=== PATIENT | male | born 1965 | race African-American/Black ===

== ENCOUNTER 2021-10-03 14:32 | Inpatient (IN) | payer OTHER ==
[~2021-10-03 14:32] MED LIST: Heparin 1,000 UNITS/ML VIAL ONE
[2021-10-03 17:58] VITALS: BMI 30.7
[2021-10-03] MEDS ORDERED: Dextrose 5% in Water 1,000 ML IV PRN (18:54)
[2021-10-03] MEDS ORDERED: Dextrose 50% Abboject 50 ML SYRINGE SLOW IVP PRN (18:54)
[2021-10-03] MEDS ORDERED: Ondansetron ODT 4 MG TAB PO PRN (19:32)
[2021-10-03] MEDS ORDERED: Bisacodyl 5 MG TAB PO PRN (19:32)
[2021-10-03] MEDS ORDERED: Senokot S 8.6-50 MG TAB PO PRN (19:32)
[2021-10-03] MEDS ORDERED: Ondansetron PF 4 MG/2 ML Vial IVP PRN (19:32)
[2021-10-03] MEDS ORDERED: Acetaminophen 325 MG TAB PO PRN (19:32)
[2021-10-03] MEDS ORDERED: HYDROcodone/Acetaminophen 5/325 mg Tablet PO PRN (19:32)
[2021-10-03] MEDS ORDERED: HumaLOG 300 UNITS/3 ML VIAL SC PRN (19:34)
[2021-10-03] MEDS: Sodium Chloride 0.9% 1,000 ML IV SCH (21:00)
[2021-10-03] MEDS ORDERED: VANCOMYCIN 2 GRAM/500 ML BAG 2 GM in Premix Bag 1 BAG IVPB SCH (21:00)
[2021-10-03] MEDS: Cefepime 2 GM in Sodium Chloride 0.9% 100 ML IVPB SCH (21:00)
[2021-10-03 21:23] LABS: Lactic Acid 1.4 mmol/L (0.5-2.2)
[2021-10-04 06:14] LABS: ALT (SGPT) 28 U/L (8-55); AST (SGOT) 15 U/L (5-34); Albumin 3.1 g/dL (3.5-5.0); Alkaline Phosphatase 72 U/L (40-110); Anion Gap 14 mmol/L (10-20); BUN (Urea Nitrogen) 15 mg/dL (8.4-25.7); Bilirubin, Total 0.5 mg/dL (0.2-1.2); Calc. Creatinine Clearance 127 mL/min (70-130); Calcium 8.5 mg/dL (7.8-10.44); Carbon Dioxide 18 mmol/L (22-29); Chloride 108 mmol/L (98-107); Estimated GFR 87; Globulin 3.6 g/dL (2.4-3.5); Glucose 132 mg/dL (70-105); Potassium 4.4 mmol/L (3.5-5.1); Protein, Total 6.7 g/dL (6.0-8.3); Sodium 136 mmol/L (136-145)
[2021-10-04 06:21] LABS: Band 5 % (5-11); Hemoglobin 9.6 g/dL (14.0-18.0); Hypochromia SLIGHT = 6-15 cells (100X) (0-5/hpf); Lymphocytes 9 % (21-51); MDiff Complete? YES; Mean Corpuscular HGB CONC 30.5 g/dL (32.0-36.0); Mean Corpuscular Hemoglobin 28.1 pg (27.0-31.0); Mean Platelet Volume 7.9 fL (7.4-10.4); Monocytes 8 % (0-10); Neutrophil 77 % (42-75); Platelet Count 363 thou/uL (130-400); Platelet Morphology Comment Appears Adequate; Polychromasia SLIGHT = 2-3 cells (100X) (0-2/hpf); Reactive Lymphocytes 1 % (0-10); Red Blood Cell (RBC) Count 3.42 mill/uL (4.70-6.10); Target Cells SLIGHT = 2-5 cells (100X) (0-1/hpf); White Blood Cell (WBC) Count 20.1 thou/uL (4.8-10.8)
[2021-10-04] MEDS: Cefepime 2 GM in Sodium Chloride 0.9% 100 ML IVPB SCH ×2 (08:02→19:36)
[2021-10-04] MEDS ORDERED: fentaNYL Citrate/PF 100 MCG/2 ML SYRINGE ONE (09:24)
[2021-10-04] MEDS ORDERED: Bupivacaine/Epinephrine 0.25% 30 ML VIAL ONE (09:24)
[2021-10-04] MEDS ORDERED: Midazolam HCl 2 mg/2 ml Vial ONE (09:24)
[2021-10-04] MEDS: Vancomycin 1.5 GRAM/300 ML BAG 1.5 GM in Premix Bag 1 BAG IVPB SCH ×2 (10:24→21:05)
[2021-10-04] MEDS ORDERED: PROPOFOL 200 MG/20 ML VIAL ONE (10:29)
[2021-10-04] MEDS ORDERED: Ondansetron PF 4 MG/2 ML Vial ONE (10:29)
[2021-10-04] MEDS ORDERED: Ondansetron HCl/PF 4 MG/2 ML Vial IVP PRN (11:17)
[2021-10-04] MEDS ORDERED: Iopamidol 370 76% 50 ML VIAL FS ONE (11:19)
[2021-10-04] MEDS ORDERED: Lidocaine 1% MPF 2 ML VIAL ONE ×2 (11:30→11:50)
[2021-10-04] MEDS ORDERED: Heparin 10,000 UNITS/ 10 ML VIAL ONE (11:41)
[2021-10-04] MEDS: Sodium Chloride 0.9% 1,000 ML IV SCH ×2 (13:48→16:49)
[2021-10-04] MEDS: HumaLOG 300 UNITS/3 ML VIAL SC PRN (17:46)
[2021-10-04] MEDS: Gabapentin 300 MG CAP PO SCH (19:41)
[2021-10-04] MEDS: Metoprolol Tartrate 25 MG TAB PO SCH (19:42)
[2021-10-04] MEDS: Atorvastatin Calcium 10 MG TAB PO SCH (19:42)
[2021-10-05] MEDS: Sodium Chloride 0.9% 1,000 ML IV SCH (01:11)
[2021-10-05] MEDS: HumaLOG 300 UNITS/3 ML VIAL SC PRN (04:58)
[2021-10-05 06:25] LABS: Anion Gap 13 mmol/L (10-20); BUN (Urea Nitrogen) 13 mg/dL (8.4-25.7); Calc. Creatinine Clearance 132 mL/min (70-130); Calcium 8.5 mg/dL (7.8-10.44); Carbon Dioxide 20 mmol/L (22-29); Chloride 105 mmol/L (98-107); Estimated GFR 92; Glucose 272 mg/dL (70-105); Potassium 4.4 mmol/L (3.5-5.1); Sodium 134 mmol/L (136-145)
[2021-10-05 07:09] LABS: Hemoglobin 9.6 g/dL (14.0-18.0); Mean Corpuscular HGB CONC 30.7 g/dL (32.0-36.0); Mean Corpuscular Hemoglobin 28.4 pg (27.0-31.0); Mean Corpuscular Volume 92.7 fL (78.0-98.0); Mean Platelet Volume 7.4 fL (7.4-10.4); Platelet Count 357 thou/uL (130-400); RBC Distribution Width 15.7 % (11.5-14.5); Red Blood Cell (RBC) Count 3.38 mill/uL (4.70-6.10); White Blood Cell (WBC) Count 14.7 thou/uL (4.8-10.8)
[2021-10-05 07:27] LABS: ALT (SGPT) 24 U/L (8-55); AST (SGOT) 17 U/L (5-34); Alkaline Phosphatase 80 U/L (40-110); Anion Gap 14 mmol/L (10-20); BUN (Urea Nitrogen) 13 mg/dL (8.4-25.7); Bilirubin, Total 0.2 mg/dL (0.2-1.2); Calc. Creatinine Clearance 129 mL/min (70-130); Calcium 8.7 mg/dL (7.8-10.44); Carbon Dioxide 20 mmol/L (22-29); Chloride 107 mmol/L (98-107); Estimated GFR 89; Globulin 3.6 g/dL (2.4-3.5); Glucose 234 mg/dL (70-105); Potassium 4.5 mmol/L (3.5-5.1); Protein, Total 6.6 g/dL (6.0-8.3); Sodium 136 mmol/L (136-145)
[2021-10-05 07:33] LABS: Vancomycin, Trough 14.8 ug/mL
[2021-10-05 07:46] LABS: Band 9 % (5-11); Lymphocytes 10 % (21-51); MDiff Complete? YES; Metamyelocyte 1 % (0-0); Monocytes 11 % (0-10); Neutrophil 69 % (42-75); Platelet Morphology Comment Appears Adequate; Polychromasia SLIGHT = 2-3 cells (100X) (0-2/hpf)
[2021-10-05] MEDS: Aspirin 81 mg Enteric Coated Tablet PO SCH (08:00)
[2021-10-05] MEDS: Cefepime 2 GM in Sodium Chloride 0.9% 100 ML IVPB SCH ×2 (08:00→20:11)
[2021-10-05] MEDS: Metoprolol Tartrate 25 MG TAB PO SCH (08:00)
[2021-10-05] MEDS: VANCOMYCIN 1.75 GM/500 ML BAG 1.75 GM in Premix Bag 1 BAG IVPB SCH ×2 (09:34→21:25)
[2021-10-05] MEDS ORDERED: Insulin Glargine 30 UNITS/0.3 ML VIAL SC SCH (10:00)
[2021-10-05] MEDS ORDERED: metFORMIN 500 MG TAB PO SCH (10:00)
[2021-10-05] MEDS ORDERED: Lisinopril 20 MG TAB PO SCH (10:00)
[2021-10-05] MEDS: metFORMIN 500 MG TAB PO SCH (17:15)
[2021-10-05] MEDS: Atorvastatin Calcium 10 MG TAB PO SCH (20:12)
[2021-10-05] MEDS: Metoprolol Tartrate 50 MG TAB PO SCH (20:12)
[2021-10-05] MEDS: Gabapentin 300 MG CAP PO SCH (20:12)
[2021-10-06 07:16] LABS: Hemoglobin 10.3 g/dL (14.0-18.0); Mean Corpuscular HGB CONC 30.9 g/dL (32.0-36.0); Mean Corpuscular Hemoglobin 28.5 pg (27.0-31.0); Mean Corpuscular Volume 92.2 fL (78.0-98.0); Mean Platelet Volume 7.8 fL (7.4-10.4); Platelet Count 383 thou/uL (130-400); RBC Distribution Width 15.8 % (11.5-14.5); Red Blood Cell (RBC) Count 3.61 mill/uL (4.70-6.10); White Blood Cell (WBC) Count 11.3 thou/uL (4.8-10.8)
[2021-10-06 07:17] LABS: ALT (SGPT) 39 U/L (8-55); AST (SGOT) 35 U/L (5-34); Albumin 3.2 g/dL (3.5-5.0); Alkaline Phosphatase 71 U/L (40-110); Anion Gap 14 mmol/L (10-20); BUN (Urea Nitrogen) 9 mg/dL (8.4-25.7); Bilirubin, Total 0.3 mg/dL (0.2-1.2); Calc. Creatinine Clearance 156 mL/min (70-130); Carbon Dioxide 21 mmol/L (22-29); Chloride 107 mmol/L (98-107); Estimated GFR 102; Globulin 3.8 g/dL (2.4-3.5); Glucose 141 mg/dL (70-105); Potassium 4.3 mmol/L (3.5-5.1); Sodium 138 mmol/L (136-145)
[2021-10-06] MEDS: Insulin Glargine 30 UNITS/0.3 ML VIAL SC SCH (08:44)
[2021-10-06] MEDS: Cefepime 2 GM in Sodium Chloride 0.9% 100 ML IVPB SCH ×2 (08:44→20:39)
[2021-10-06] MEDS: Metoprolol Tartrate 50 MG TAB PO SCH ×2 (08:45→20:38)
[2021-10-06] MEDS: Aspirin 81 mg Enteric Coated Tablet PO SCH (08:45)
[2021-10-06] MEDS: metFORMIN 500 MG TAB PO SCH ×2 (08:45→16:57)
[2021-10-06 09:42] LABS: Band 6 % (5-11); Eosinophils 1 % (0-10); Hypochromia SLIGHT = 6-15 cells (100X) (0-5/hpf); Lymphocytes 12 % (21-51); MDiff Complete? YES; Metamyelocyte 1 % (0-0); Monocytes 13 % (0-10); Myelocyte 4 % (0-0); Neutrophil 59 % (42-75); Platelet Morphology Comment Appears Adequate; Polychromasia MODERATE = 3-4 cells (100X) (0-2/hpf); Reactive Lymphocytes 4 % (0-10); Target Cells SLIGHT = 2-5 cells (100X) (0-1/hpf)
[2021-10-06] MEDS: VANCOMYCIN 1.75 GM/500 ML BAG 1.75 GM in Premix Bag 1 BAG IVPB SCH ×2 (09:56→21:46)
[2021-10-06] MEDS: Lisinopril 20 MG TAB PO SCH (09:56)
[2021-10-06] MEDS: HumaLOG 300 UNITS/3 ML VIAL SC PRN ×2 (13:05→16:57)
[2021-10-06] MEDS: Gabapentin 300 MG CAP PO SCH (20:37)
[2021-10-06] MEDS: Atorvastatin Calcium 10 MG TAB PO SCH (20:37)
[2021-10-07] MEDS: Insulin Glargine 30 UNITS/0.3 ML VIAL SC SCH (08:29)
[2021-10-07] MEDS: Metoprolol Tartrate 50 MG TAB PO SCH (08:30)
[2021-10-07] MEDS: Aspirin 81 mg Enteric Coated Tablet PO SCH (08:30)
[2021-10-07] MEDS: Lisinopril 20 MG TAB PO SCH (08:31)
[2021-10-07] MEDS: metFORMIN 500 MG TAB PO SCH (08:31)
[2021-10-07] MEDS: Cefepime 2 GM in Sodium Chloride 0.9% 100 ML IVPB SCH (08:32)
[2021-10-07] MEDS: VANCOMYCIN 1.75 GM/500 ML BAG 1.75 GM in Premix Bag 1 BAG IVPB SCH (10:18)
[2021-10-07] MEDS: HumaLOG 300 UNITS/3 ML VIAL SC PRN (13:07)
[2021-10-07 16:24] VITALS: BP 144/82; TEMP 98.3
== END 2021-10-07 15:49 | DRG 854 ==
LOC: T4-A 14:32
PROVIDERS: ADMIT Internal Medicine; ATTEND Internal Medicine
PROC: 3E03329 Introduction of Other Anti-infective into Peripheral Vein, Percutaneous Approach (ICD-10-PCS; 2021-10-03)
PROC: 0Y6N0Z9 Detachment at Left Foot, Partial 1st Ray, Open Approach (ICD-10-PCS; principal; 2021-10-04)
PROC: 0Y6N0ZB Detachment at Left Foot, Partial 2nd Ray, Open Approach (ICD-10-PCS; 2021-10-04)
PROC: B4101ZZ Fluoroscopy of Abdominal Aorta using Low Osmolar Contrast (ICD-10-PCS; 2021-10-04)
PROC: B41G1ZZ Fluoroscopy of Left Lower Extremity Arteries using Low Osmolar Contrast (ICD-10-PCS; 2021-10-04)
PROC: 02HV33Z Insertion of Infusion Device into Superior Vena Cava, Percutaneous Approach (ICD-10-PCS; 2021-10-06)
PROC: B5181ZA Fluoroscopy of Superior Vena Cava using Low Osmolar Contrast, Guidance (ICD-10-PCS; 2021-10-06)
PROC: B548ZZA Ultrasonography of Superior Vena Cava, Guidance (ICD-10-PCS; 2021-10-06)
DX: A41.02 Sepsis due to Methicillin resistant Staphylococcus aureus (principal); E11.52 Type 2 diabetes mellitus with diabetic peripheral angiopathy with gangrene; I50.42 Chronic combined systolic (congestive) and diastolic (congestive) heart failure; I13.0 Hypertensive heart and chronic kidney disease with heart failure and stage 1 through stage 4 chronic kidney disease, or unspecified chronic kidney disease; M86.8X7 Other osteomyelitis, ankle and foot; E11.69 Type 2 diabetes mellitus with other specified complication; Z20.822 Contact with and (suspected) exposure to COVID-19; I25.10 Atherosclerotic heart disease of native coronary artery without angina pectoris; E11.22 Type 2 diabetes mellitus with diabetic chronic kidney disease; E78.5 Hyperlipidemia, unspecified; N18.9 Chronic kidney disease, unspecified; E11.40 Type 2 diabetes mellitus with diabetic neuropathy, unspecified; L03.032 Cellulitis of left toe; E78.2 Mixed hyperlipidemia; I25.5 Ischemic cardiomyopathy; D63.1 Anemia in chronic kidney disease; Z79.899 Other long term (current) drug therapy; Z79.82 Long term (current) use of aspirin; Z79.4 Long term (current) use of insulin; Z79.84 Long term (current) use of oral hypoglycemic drugs; I25.2 Old myocardial infarction; Z89.511 Acquired absence of right leg below knee; Z82.3 Family history of stroke; Z83.3 Family history of diabetes mellitus; Z82.49 Family history of ischemic heart disease and other diseases of the circulatory system; Z87.891 Personal history of nicotine dependence
CPT/HCPCS: 36247; 36415; 36416; 36569; 75710; 80048; 80053; 80202; 83036; 83605; 85025; 87070; 87076; 87077; 87186; 87205; 88305; 93306; 97139; C1751; C1760; C1769; C1887; C1894; J0692; J1644; J1815; J2250; J2405; J2704; J3370; J3490; J7050; Q9967

== ENCOUNTER 2021-11-18 10:47 | Outpatient (CLI) | payer OTHER ==
[2021-11-18 12:12] LABS: #Eosinphils 0.1 10x3/uL (0.0-0.5); #Monocytes 0.9 10x3/uL (0.0-1.1); #Neutrophils 13.8 10x3/uL (1.5-8.4); %Basophils 0.2 % (0.0-2.0); %Eosinophils 0.4 % (0.0-6.0); %Lymphocytes 9.9 % (18.0-47.0); %Monocytes 5.2 % (0.0-10.0); %Neutrophils 83.4 % (40.0-75.0); Hemoglobin 11.2 g/dL (13.5-17.5); Mean Corpuscular HGB CONC 31.1 g/dL (32.0-36.0); Mean Corpuscular Hemoglobin 27.4 pg (27.0-33.0); Mean Platelet Volume 10.7 fl (7.4-10.4); Platelet Count 509 10x3/uL (150-450); Red Blood Cell (RBC) Count 4.09 10x6/uL (4.32-5.72); White Blood Cell (WBC) Count 16.5 10x3/uL (3.5-10.5)
[2021-11-18 12:32] LABS: Anion Gap 20 mmol/L (10-20); BUN (Urea Nitrogen) 34 mg/dL (8.4-25.7); Calc. Creatinine Clearance 0 mL/min (70-130); Calcium 9.2 mg/dL (7.8-10.44); Carbon Dioxide 18 mmol/L (22-29); Chloride 107 mmol/L (98-107); Estimated GFR 43; Glucose 105 mg/dL (70-105); Potassium 5.6 mmol/L (3.5-5.1); Sodium 139 mmol/L (136-145)
== END 2021-11-18 10:48 | disposition home or self-care (01) ==
LOC: LABBT 10:47
PROVIDERS: ATTEND Specialist
DX: Z01.812 Encounter for preprocedural laboratory examination (principal); Z20.822 Contact with and (suspected) exposure to COVID-19
CPT/HCPCS: 80048; 85025; 87811

== ENCOUNTER 2021-11-21 05:52 | Day surgery (SDC) | payer OTHER ==
[2021-11-18 09:34] VITALS: BMI 29.5
[2021-11-21] MEDS ORDERED: EPINEPHrine 1 MG/ML AMP ONE (06:37)
[2021-11-21] MEDS ORDERED: Bupivacaine 0.25% HCL 30 ML VIAL ONE (06:37)
[2021-11-21] MEDS ORDERED: fentaNYL Citrate/PF 100 MCG/2 ML SYRINGE ONE (06:46)
[2021-11-21] MEDS ORDERED: CEFAZOLIN 2 GM VIAL ONE (06:50)
[2021-11-21] MEDS ORDERED: Acetaminophen 325 MG TAB ONE (06:50)
[2021-11-21] MEDS ORDERED: Ketorolac Tromethamine 30 MG/ML VIAL ONE (06:51)
[2021-11-21] MEDS ORDERED: Sodium Chloride 0.9% 100 ML ONE (06:51)
[2021-11-21] MEDS ORDERED: PHENYLEPHRINE-NS 100 MCG/ML 10 ML SYRINGE ONE (09:07)
[2021-11-21] MEDS ORDERED: ePHEDrine 50 MG/ML VIAL ONE (09:07)
[2021-11-21] MEDS ORDERED: Ondansetron PF 4 MG/2 ML Vial ONE (09:07)
[2021-11-21] MEDS ORDERED: Metoclopramide HCl 10 MG/2 ML VIAL ONE (09:07)
== END 2021-11-21 14:20 | disposition home or self-care (01) ==
LOC: SDC 05:52
PROVIDERS: ATTEND Specialist
PROC: 0Y6N0Z9 Detachment at Left Foot, Partial 1st Ray, Open Approach (ICD-10-PCS; principal; 2021-11-21)
PROC: 0Y6N0ZB Detachment at Left Foot, Partial 2nd Ray, Open Approach (ICD-10-PCS; principal; 2021-11-21)
PROC: 0Y6N0ZD Detachment at Left Foot, Partial 4th Ray, Open Approach (ICD-10-PCS; principal; 2021-11-21)
PROC: 0Y6N0ZC Detachment at Left Foot, Partial 3rd Ray, Open Approach (ICD-10-PCS; principal; 2021-11-21)
DX: I96 Gangrene, not elsewhere classified (principal); L97.529 Non-pressure chronic ulcer of other part of left foot with unspecified severity; E11.51 Type 2 diabetes mellitus with diabetic peripheral angiopathy without gangrene; I13.0 Hypertensive heart and chronic kidney disease with heart failure and stage 1 through stage 4 chronic kidney disease, or unspecified chronic kidney disease; E11.22 Type 2 diabetes mellitus with diabetic chronic kidney disease; N18.2 Chronic kidney disease, stage 2 (mild); I50.22 Chronic systolic (congestive) heart failure; E78.5 Hyperlipidemia, unspecified; M19.90 Unspecified osteoarthritis, unspecified site; Z22.322 Carrier or suspected carrier of Methicillin resistant Staphylococcus aureus; Z79.2 Long term (current) use of antibiotics; Z79.4 Long term (current) use of insulin; Z79.82 Long term (current) use of aspirin; Z79.84 Long term (current) use of oral hypoglycemic drugs; Z79.899 Other long term (current) drug therapy; Z89.412 Acquired absence of left great toe; Z89.422 Acquired absence of other left toe(s); Z89.511 Acquired absence of right leg below knee; M96.830 Postprocedural hemorrhage of a musculoskeletal structure following a musculoskeletal system procedure; E86.0 Dehydration; E78.00 Pure hypercholesterolemia, unspecified; I50.20 Unspecified systolic (congestive) heart failure
CPT/HCPCS: 36415; 36416; 80053; 85025; 88305; 88311; 93005; 93010; 97139; 99284; J0171; J0690; J1885; J2405; J2765; J3490; Q0162; S0020

== ENCOUNTER 2021-11-21 18:05 | Emergency (ER) | payer OTHER ==
[2021-11-21] MEDS ORDERED: Ondansetron ODT 8 MG TAB ONE (19:04)
[2021-11-21 19:24] LABS: #Lymphocytes 0.9 thou/uL (1.20-3.40); #Monocytes 1.2 thou/uL (0.11-0.59); #Neutrophils 14.5 thou/uL (1.40-6.50); %Basophils 0.1 % (0.0-1.0); %Eosinophils 0.1 % (0.0-10.0); %Lymphocytes 5.6 % (21.0-51.0); %Monocytes 7.2 % (0.0-10.0); Hemoglobin 10.1 g/dL (14.0-18.0); Mean Corpuscular HGB CONC 29.5 g/dL (32.0-36.0); Mean Corpuscular Hemoglobin 27.2 pg (27.0-31.0); Mean Corpuscular Volume 92.2 fL (78.0-98.0); Mean Platelet Volume 8.6 fL (7.4-10.4); Platelet Count 362 thou/uL (130-400); RBC Distribution Width 14.9 % (11.5-14.5); Red Blood Cell (RBC) Count 3.69 mill/uL (4.70-6.10); White Blood Cell (WBC) Count 16.7 thou/uL (4.8-10.8)
[2021-11-21 19:39] LABS: ALT (SGPT) 19 U/L (8-55); AST (SGOT) 20 U/L (5-34); Albumin 3.5 g/dL (3.5-5.0); Alkaline Phosphatase 88 U/L (40-110); Anion Gap 15 mmol/L (10-20); BUN (Urea Nitrogen) 21 mg/dL (8.4-25.7); Bilirubin, Total 0.3 mg/dL (0.2-1.2); Calc. Creatinine Clearance 0 mL/min (70-130); Carbon Dioxide 22 mmol/L (22-29); Chloride 102 mmol/L (98-107); Estimated GFR 59; Globulin 4.1 g/dL (2.4-3.5); Glucose 211 mg/dL (70-105); Potassium 5.6 mmol/L (3.5-5.1); Protein, Total 7.6 g/dL (6.0-8.3); Sodium 133 mmol/L (136-145)
[2021-11-21 19:59] LABS: Hypochromia SLIGHT = 6-15 cells (100X) (0-5/hpf); MDiff Complete? YES; Platelet Morphology Comment Appears Adequate; Polychromasia SLIGHT = 2-3 cells (100X) (0-2/hpf)
== END 2021-11-21 21:00 | disposition home or self-care (01) ==
LOC: ERS 18:05
DX: M96.830 Postprocedural hemorrhage of a musculoskeletal structure following a musculoskeletal system procedure (principal); E86.0 Dehydration; E78.00 Pure hypercholesterolemia, unspecified; I13.0 Hypertensive heart and chronic kidney disease with heart failure and stage 1 through stage 4 chronic kidney disease, or unspecified chronic kidney disease; E11.22 Type 2 diabetes mellitus with diabetic chronic kidney disease; N18.2 Chronic kidney disease, stage 2 (mild); I50.20 Unspecified systolic (congestive) heart failure; Z79.4 Long term (current) use of insulin; Z79.84 Long term (current) use of oral hypoglycemic drugs; Z79.899 Other long term (current) drug therapy
CPT/HCPCS: 36415; 80053; 85025; Q0162

== ENCOUNTER 2022-01-31 15:18 | Inpatient (IN) | payer OTHER ==
[2022-01-31 18:09] VITALS: BMI 25.0
[2022-01-31] MEDS ORDERED: Dextrose 5% in Water 1,000 ML IV PRN (20:23)
[2022-01-31] MEDS ORDERED: Dextrose 50% Abboject 50 ML SYRINGE SLOW IVP PRN (20:23)
[2022-01-31] MEDS ORDERED: HumaLOG 300 UNITS/3 ML VIAL SC PRN ×2 (20:23)
[2022-01-31] MEDS ORDERED: Sodium Chloride 0.9% 1,000 ML IV SCH (20:30)
[2022-01-31] MEDS ORDERED: Vancomycin 1 GM in Premix Bag 1 BAG IVPB SCH (20:30)
[2022-01-31] MEDS ORDERED: Morphine 4 MG/ML VIAL SLOW IVP PRN (20:37)
[2022-01-31] MEDS: Cefepime 2 GM in Sodium Chloride 0.9% 100 ML IVPB SCH (21:03)
[2022-01-31] MEDS: Acetaminophen 325 MG TAB PO PRN (21:04)
[2022-01-31] MEDS: Famotidine 20 MG TAB PO SCH (21:04)
[2022-01-31] MEDS: Heparin 5,000 UNITS/ML VIAL SC SCH (21:05)
[2022-01-31] MEDS: metroNIDAZOLE 500 MG in Premix Bag 1 BAG IVPB SCH (21:57)
[2022-01-31] MEDS: VANCOMYCIN 1.75 GM/500 ML BAG 1.75 GM in Premix Bag 1 BAG IVPB SCH (23:51)
[2022-02-01] MEDS: metroNIDAZOLE 500 MG in Premix Bag 1 BAG IVPB SCH ×5 (04:20→22:58)
[2022-02-01 07:26] LABS: Hemoglobin 9.5 g/dL (14.0-18.0); Mean Corpuscular HGB CONC 29.7 g/dL (32.0-36.0); Mean Corpuscular Hemoglobin 25.5 pg (27.0-31.0); Mean Platelet Volume 8.2 fL (7.4-10.4); Platelet Count 409 10x3/uL (130-400); RBC Distribution Width 16.5 % (11.5-14.5); Red Blood Cell (RBC) Count 3.71 mill/uL (4.70-6.10)
[2022-02-01 07:53] LABS: ALT (SGPT) 14 U/L (8-55); AST (SGOT) 13 U/L (5-34); Albumin 3.4 g/dL (3.5-5.0); Alkaline Phosphatase 76 U/L (40-110); Anion Gap 14 mmol/L (10-20); BUN (Urea Nitrogen) 15 mg/dL (8.4-25.7); Bilirubin, Total 0.3 mg/dL (0.2-1.2); Calc. Creatinine Clearance 112 mL/min (70-130); Calcium 9.3 mg/dL (7.8-10.44); Carbon Dioxide 20 mmol/L (22-29); Chloride 108 mmol/L (98-107); Estimated GFR 97; Globulin 4.3 g/dL (2.4-3.5); Glucose 142 mg/dL (70-105); Potassium 4.6 mmol/L (3.5-5.1); Protein, Total 7.7 g/dL (6.0-8.3); Sodium 137 mmol/L (136-145)
[2022-02-01] MEDS: Heparin 5,000 UNITS/ML VIAL SC SCH ×3 (08:37→21:32)
[2022-02-01] MEDS: Famotidine 20 MG TAB PO SCH ×2 (08:37→21:15)
[2022-02-01 08:51] LABS: #Eosinphils 0.3 thou/uL (0.0-0.7); #Lymphocytes 1.6 thou/uL (1.20-3.40); #Monocytes 0.8 thou/uL (0.11-0.59); #Neutrophils 6.3 thou/uL (1.40-6.50); %Basophils 0.5 % (0.0-1.0); %Eosinophils 3.6 % (0.0-10.0); %Lymphocytes 17.4 % (21.0-51.0); %Monocytes 8.5 % (0.0-10.0); Hypochromia SLIGHT = 6-15 cells (100X) (0-5/hpf); MDiff Complete? YES; Platelet Morphology Comment Appears Increased; Polychromasia SLIGHT = 2-3 cells (100X) (0-2/hpf)
[2022-02-01] MEDS ORDERED: FLU VACC QS2022-23(6MOS UP)/PF 60 MCG/0.5 ML SYRINGE IM ONE (09:00)
[2022-02-01] MEDS: Cefepime 2 GM in Sodium Chloride 0.9% 100 ML IVPB SCH ×2 (09:07→21:17)
[2022-02-01] MEDS: VANCOMYCIN 1.75 GM/500 ML BAG 1.75 GM in Premix Bag 1 BAG IVPB SCH ×2 (12:01→23:04)
[2022-02-01] MEDS ORDERED: Fentanyl 250 MCG/5 ML VIAL ONE (19:09)
[2022-02-01] MEDS ORDERED: Dexmedetomidine 200 MCG/2 ML VIAL ONE (19:09)
[2022-02-01] MEDS ORDERED: Ondansetron PF 4 MG/2 ML Vial ONE (19:25)
[2022-02-01] MEDS ORDERED: ePHEDrine 50 MG/ML VIAL ONE (19:25)
[2022-02-01] MEDS ORDERED: PROPOFOL 200 MG/20 ML VIAL ONE (19:25)
[2022-02-01] MEDS ORDERED: Ondansetron HCl/PF 4 MG/2 ML Vial IVP PRN (20:08)
[2022-02-01] MEDS ORDERED: Promethazine HCl 25 MG/ML VIAL IM PRN (20:08)
[2022-02-01] MEDS ORDERED: Promethazine HCl 25 MG/ML VIAL IVPB PRN (20:08)
[2022-02-01] MEDS: Gabapentin 300 MG CAP PO SCH (21:14)
[2022-02-01] MEDS: Metoprolol Tartrate 50 MG TAB PO SCH (21:14)
[2022-02-01] MEDS: metFORMIN 500 MG TAB PO SCH (21:15)
[2022-02-01] MEDS: Acetaminophen 325 MG TAB PO PRN (21:16)
[2022-02-01] MEDS: Atorvastatin Calcium 10 MG TAB PO SCH (21:32)
[2022-02-02] MEDS: metroNIDAZOLE 500 MG in Premix Bag 1 BAG IVPB SCH ×4 (03:40→21:38)
[2022-02-02] MEDS: Cefepime 2 GM in Sodium Chloride 0.9% 100 ML IVPB SCH ×2 (07:56→21:26)
[2022-02-02] MEDS: Famotidine 20 MG TAB PO SCH ×2 (07:57→21:27)
[2022-02-02] MEDS: metFORMIN 500 MG TAB PO SCH ×2 (07:57→21:27)
[2022-02-02] MEDS: Empagliflozin 25 MG TAB PO SCH (07:57)
[2022-02-02] MEDS: Lisinopril 20 MG TAB PO SCH (07:57)
[2022-02-02] MEDS: Furosemide 40 MG TAB PO SCH (07:57)
[2022-02-02] MEDS: Insulin Glargine 30 UNITS/0.3 ML VIAL SC SCH (07:57)
[2022-02-02] MEDS: Heparin 5,000 UNITS/ML VIAL SC SCH ×3 (07:57→21:28)
[2022-02-02] MEDS: Metoprolol Tartrate 50 MG TAB PO SCH ×2 (07:58→21:27)
[2022-02-02 10:15] LABS: Vancomycin, Trough 23.2 ug/mL
[2022-02-02] MEDS: VANCOMYCIN 1.75 GM/500 ML BAG 1.75 GM in Premix Bag 1 BAG IVPB SCH (10:54)
[2022-02-02] MEDS: Atorvastatin Calcium 10 MG TAB PO SCH (17:15)
[2022-02-02] MEDS: Gabapentin 300 MG CAP PO SCH (21:26)
[2022-02-02] MEDS: Acetaminophen 325 MG TAB PO PRN (21:31)
[2022-02-03] MEDS: VANCOMYCIN 1.25 GM/250 ML BAG 1.25 GM in Premix Bag 1 BAG IVPB SCH ×2 (00:13→11:33)
[2022-02-03] MEDS: metroNIDAZOLE 500 MG in Premix Bag 1 BAG IVPB SCH ×4 (03:14→22:14)
[2022-02-03] MEDS: Cefepime 2 GM in Sodium Chloride 0.9% 100 ML IVPB SCH (08:35)
[2022-02-03] MEDS: Famotidine 20 MG TAB PO SCH ×2 (08:36→20:01)
[2022-02-03] MEDS: metFORMIN 500 MG TAB PO SCH ×2 (08:36→20:00)
[2022-02-03] MEDS: Heparin 5,000 UNITS/ML VIAL SC SCH ×3 (08:36→20:01)
[2022-02-03] MEDS: Empagliflozin 25 MG TAB PO SCH (08:36)
[2022-02-03] MEDS: Metoprolol Tartrate 50 MG TAB PO SCH ×2 (08:37→20:01)
[2022-02-03] MEDS: Furosemide 40 MG TAB PO SCH (08:37)
[2022-02-03] MEDS: Insulin Glargine 30 UNITS/0.3 ML VIAL SC SCH (08:37)
[2022-02-03] MEDS: Lisinopril 20 MG TAB PO SCH (10:26)
[2022-02-03] MEDS ORDERED: Piperacillin/Tazobactam 3.375 GM in Sodium Chloride 0.9% 100 ML IVPB SCH (15:45)
[2022-02-03] MEDS: Atorvastatin Calcium 10 MG TAB PO SCH (16:37)
[2022-02-03] MEDS: Piperacillin/Tazobactam 3.375 GM in Sodium Chloride 0.9% 100 ML IVPB SCH (20:01)
[2022-02-03] MEDS: Gabapentin 300 MG CAP PO SCH (20:01)
[2022-02-03] MEDS ORDERED: Piperacillin/Tazobactam 4.5 GM in Sodium Chloride 0.9% 100 ML IVPB SCH (22:00)
[2022-02-04] MEDS: metroNIDAZOLE 500 MG in Premix Bag 1 BAG IVPB SCH ×4 (03:53→21:18)
[2022-02-04] MEDS: Piperacillin/Tazobactam 3.375 GM in Sodium Chloride 0.9% 100 ML IVPB SCH ×3 (05:22→21:01)
[2022-02-04 06:06] LABS: #Eosinphils 0.3 thou/uL (0.0-0.7); #Lymphocytes 1.5 thou/uL (1.20-3.40); #Monocytes 0.9 thou/uL (0.11-0.59); #Neutrophils 8.5 thou/uL (1.40-6.50); %Basophils 0.2 % (0.0-1.0); %Lymphocytes 13.2 % (21.0-51.0); %Monocytes 8.2 % (0.0-10.0); %Neutrophils 75.3 % (42.0-75.0); Hemoglobin 9.7 g/dL (14.0-18.0); Mean Corpuscular HGB CONC 29.9 g/dL (32.0-36.0); Mean Corpuscular Hemoglobin 25.6 pg (27.0-31.0); Mean Corpuscular Volume 85.8 fl (78.0-98.0); Mean Platelet Volume 8.5 fL (7.4-10.4); Platelet Count 375 10x3/uL (130-400); RBC Distribution Width 17.3 % (11.5-14.5); Red Blood Cell (RBC) Count 3.78 mill/uL (4.70-6.10); White Blood Cell (WBC) Count 11.2 10x3/uL (4.8-10.8)
[2022-02-04 06:28] LABS: Anion Gap 14 mmol/L (10-20); BUN (Urea Nitrogen) 24 mg/dL (8.4-25.7); Calc. Creatinine Clearance 98 mL/min (70-130); Carbon Dioxide 21 mmol/L (22-29); Chloride 106 mmol/L (98-107); Estimated GFR 83; Glucose 99 mg/dL (70-105); Sodium 137 mmol/L (136-145)
[2022-02-04] MEDS: Lisinopril 20 MG TAB PO SCH (08:47)
[2022-02-04] MEDS: Empagliflozin 25 MG TAB PO SCH (08:47)
[2022-02-04] MEDS: metFORMIN 500 MG TAB PO SCH ×2 (08:47→21:01)
[2022-02-04] MEDS: Metoprolol Tartrate 50 MG TAB PO SCH ×2 (08:47→21:16)
[2022-02-04] MEDS: Furosemide 40 MG TAB PO SCH (08:47)
[2022-02-04] MEDS: Insulin Glargine 30 UNITS/0.3 ML VIAL SC SCH (08:47)
[2022-02-04] MEDS: Famotidine 20 MG TAB PO SCH ×2 (08:47→21:00)
[2022-02-04] MEDS: Heparin 5,000 UNITS/ML VIAL SC SCH ×3 (08:47→21:01)
[2022-02-04 09:27] LABS: Vancomycin, Trough 12.7 ug/mL
[2022-02-04] MEDS: Ondansetron ODT 4 MG TAB PO PRN (12:22)
[2022-02-04] MEDS: Atorvastatin Calcium 10 MG TAB PO SCH (17:03)
[2022-02-04] MEDS: Gabapentin 300 MG CAP PO SCH (21:01)
[2022-02-05] MEDS: metroNIDAZOLE 500 MG in Premix Bag 1 BAG IVPB SCH ×4 (04:21→20:35)
[2022-02-05] MEDS: Piperacillin/Tazobactam 3.375 GM in Sodium Chloride 0.9% 100 ML IVPB SCH ×3 (05:20→20:35)
[2022-02-05 06:49] LABS: Anion Gap 13 mmol/L (10-20); BUN (Urea Nitrogen) 24 mg/dL (8.4-25.7); Calc. Creatinine Clearance 81 mL/min (70-130); Carbon Dioxide 23 mmol/L (22-29); Chloride 106 mmol/L (98-107); Estimated GFR 66; Glucose 119 mg/dL (70-105); Potassium 4.2 mmol/L (3.5-5.1); Sodium 138 mmol/L (136-145)
[2022-02-05 07:51] LABS: Band 1 % (5-11); Eosinophils 6 % (0-10); Hemoglobin 9.5 g/dL (14.0-18.0); Lymphocytes 8 % (21-51); MDiff Complete? YES; Mean Corpuscular HGB CONC 30.4 g/dL (32.0-36.0); Mean Corpuscular Hemoglobin 26.3 pg (27.0-31.0); Mean Corpuscular Volume 86.5 fl (78.0-98.0); Mean Platelet Volume 8.6 fL (7.4-10.4); Monocytes 14 % (0-10); Neutrophil 71 % (42-75); Platelet Count 372 10x3/uL (130-400); Platelet Morphology Comment Appears Adequate; Polychromasia SLIGHT = 2-3 cells (100X) (0-2/hpf); RBC Distribution Width 17.2 % (11.5-14.5); Red Blood Cell (RBC) Count 3.61 mill/uL (4.70-6.10); White Blood Cell (WBC) Count 12.7 10x3/uL (4.8-10.8)
[2022-02-05] MEDS: Ondansetron ODT 4 MG TAB PO PRN (08:17)
[2022-02-05] MEDS: Lisinopril 20 MG TAB PO SCH (08:17)
[2022-02-05] MEDS: Insulin Glargine 30 UNITS/0.3 ML VIAL SC SCH (08:17)
[2022-02-05] MEDS: Furosemide 40 MG TAB PO SCH (08:17)
[2022-02-05] MEDS: Empagliflozin 25 MG TAB PO SCH (08:17)
[2022-02-05] MEDS: Famotidine 20 MG TAB PO SCH ×2 (08:17→20:35)
[2022-02-05] MEDS: Metoprolol Tartrate 50 MG TAB PO SCH ×2 (08:17→20:35)
[2022-02-05] MEDS: metFORMIN 500 MG TAB PO SCH ×2 (08:17→20:35)
[2022-02-05] MEDS: Heparin 5,000 UNITS/ML VIAL SC SCH ×3 (08:18→20:33)
[2022-02-05] MEDS: Atorvastatin Calcium 10 MG TAB PO SCH (16:05)
[2022-02-05] MEDS: Gabapentin 300 MG CAP PO SCH (20:35)
[2022-02-06] MEDS: metroNIDAZOLE 500 MG in Premix Bag 1 BAG IVPB SCH ×4 (04:26→20:46)
[2022-02-06] MEDS: Piperacillin/Tazobactam 3.375 GM in Sodium Chloride 0.9% 100 ML IVPB SCH ×3 (04:26→20:46)
[2022-02-06] MEDS: Ondansetron ODT 4 MG TAB PO PRN (05:35)
[2022-02-06 07:54] LABS: Anion Gap 13 mmol/L (10-20); BUN (Urea Nitrogen) 19 mg/dL (8.4-25.7); Calc. Creatinine Clearance 93 mL/min (70-130); Calcium 8.9 mg/dL (7.8-10.44); Carbon Dioxide 23 mmol/L (22-29); Chloride 106 mmol/L (98-107); Estimated GFR 77; Glucose 75 mg/dL (70-105); Potassium 4.1 mmol/L (3.5-5.1); Sodium 138 mmol/L (136-145)
[2022-02-06 08:00] LABS: #Eosinphils 0.6 thou/uL (0.0-0.7); #Lymphocytes 1.5 thou/uL (1.20-3.40); #Monocytes 0.9 thou/uL (0.11-0.59); #Neutrophils 7.9 thou/uL (1.40-6.50); %Basophils 0.1 % (0.0-1.0); %Eosinophils 5.1 % (0.0-10.0); %Lymphocytes 13.6 % (21.0-51.0); %Monocytes 8.3 % (0.0-10.0); %Neutrophils 72.9 % (42.0-75.0); Hemoglobin 9.8 g/dL (14.0-18.0); Mean Corpuscular HGB CONC 28.7 g/dL (32.0-36.0); Mean Corpuscular Volume 87.1 fl (78.0-98.0); Mean Platelet Volume 8.3 fL (7.4-10.4); Platelet Count 369 10x3/uL (130-400); RBC Distribution Width 17.4 % (11.5-14.5); Red Blood Cell (RBC) Count 3.93 mill/uL (4.70-6.10); White Blood Cell (WBC) Count 10.9 10x3/uL (4.8-10.8)
[2022-02-06] MEDS: Furosemide 40 MG TAB PO SCH (08:38)
[2022-02-06] MEDS: Metoprolol Tartrate 50 MG TAB PO SCH ×2 (08:38→20:46)
[2022-02-06] MEDS: Heparin 5,000 UNITS/ML VIAL SC SCH ×3 (08:38→20:33)
[2022-02-06] MEDS: Insulin Glargine 30 UNITS/0.3 ML VIAL SC SCH (08:38)
[2022-02-06] MEDS: Lisinopril 20 MG TAB PO SCH (08:38)
[2022-02-06] MEDS: Empagliflozin 25 MG TAB PO SCH (08:38)
[2022-02-06] MEDS: metFORMIN 500 MG TAB PO SCH ×2 (08:38→20:46)
[2022-02-06] MEDS: Famotidine 20 MG TAB PO SCH ×2 (08:38→20:46)
[2022-02-06] MEDS: Atorvastatin Calcium 10 MG TAB PO SCH (17:04)
[2022-02-06 19:17] VITALS: TEMP 98.1
[2022-02-06] MEDS: Gabapentin 300 MG CAP PO SCH (20:46)
[2022-02-07] MEDS: metroNIDAZOLE 500 MG in Premix Bag 1 BAG IVPB SCH ×2 (03:21→10:49)
[2022-02-07] MEDS: Piperacillin/Tazobactam 3.375 GM in Sodium Chloride 0.9% 100 ML IVPB SCH ×2 (03:21→12:51)
[2022-02-07 07:06] LABS: #Eosinphils 0.5 thou/uL (0.0-0.7); #Lymphocytes 1.8 thou/uL (1.20-3.40); #Monocytes 0.8 thou/uL (0.11-0.59); #Neutrophils 9.6 thou/uL (1.40-6.50); %Basophils 0.2 % (0.0-1.0); %Eosinophils 4.2 % (0.0-10.0); %Lymphocytes 14.1 % (21.0-51.0); %Monocytes 6.6 % (0.0-10.0); %Neutrophils 74.9 % (42.0-75.0); Hemoglobin 10.5 g/dL (14.0-18.0); Mean Corpuscular Hemoglobin 25.4 pg (27.0-31.0); Mean Corpuscular Volume 87.7 fl (78.0-98.0); Mean Platelet Volume 8.5 fL (7.4-10.4); Platelet Count 380 10x3/uL (130-400); Red Blood Cell (RBC) Count 4.13 mill/uL (4.70-6.10); White Blood Cell (WBC) Count 12.8 10x3/uL (4.8-10.8)
[2022-02-07 07:07] LABS: Anion Gap 14 mmol/L (10-20); BUN (Urea Nitrogen) 18 mg/dL (8.4-25.7); Calc. Creatinine Clearance 94 mL/min (70-130); Calcium 9.2 mg/dL (7.8-10.44); Carbon Dioxide 25 mmol/L (22-29); Chloride 103 mmol/L (98-107); Estimated GFR 78; Glucose 100 mg/dL (70-105); Sodium 138 mmol/L (136-145)
[2022-02-07] MEDS: Ondansetron ODT 4 MG TAB PO PRN (08:06)
[2022-02-07] MEDS: metFORMIN 500 MG TAB PO SCH (08:06)
[2022-02-07] MEDS: Heparin 5,000 UNITS/ML VIAL SC SCH ×2 (08:07→14:09)
[2022-02-07] MEDS: Famotidine 20 MG TAB PO SCH (08:07)
[2022-02-07] MEDS: Lisinopril 20 MG TAB PO SCH (08:07)
[2022-02-07] MEDS: Empagliflozin 25 MG TAB PO SCH (08:07)
[2022-02-07] MEDS: Metoprolol Tartrate 50 MG TAB PO SCH (08:07)
[2022-02-07] MEDS: Furosemide 40 MG TAB PO SCH (08:07)
[2022-02-07] MEDS: Insulin Glargine 30 UNITS/0.3 ML VIAL SC SCH (08:07)
[2022-02-07 08:17] VITALS: BP 115/55
[2022-02-07 08:27] LABS: Anisocytosis SLIGHT = 6-15 cells (100X) (0-5/hpf); MDiff Complete? YES; Platelet Morphology Comment Appears Adequate; Polychromasia MODERATE = 3-4 cells (100X) (0-2/hpf)
[2022-02-07] MEDS ORDERED: Calcium Carbonate 500 MG ChewTAB PO PRN (10:26)
[2022-02-07] MEDS ORDERED: Vancomycin HCl 2.25 GM in Sodium Chloride 0.9% 500 ML IVPB SCH (12:00)
[2022-02-07] MEDS: Atorvastatin Calcium 10 MG TAB PO SCH (16:49)
[2022-02-07] MEDS ORDERED: Vancomycin HCl 1 GM in Sodium Chloride 0.9% 250 ML 250 ML IVPB SCH (21:00)
[2022-02-07] MEDS ORDERED: Vancomycin 1.5 GRAM/300 ML BAG 1.5 GM in Premix Bag 1 BAG IVPB SCH (23:59)
[2022-02-08] MEDS ORDERED: Saccharomyces boulardii 250 MG CAP PO SCH (09:00)
== END 2022-02-07 17:20 | disposition home or self-care (01) | DRG 617 ==
LOC: T4-A 18:01
PROVIDERS: ADMIT Hospitalist; ATTEND Hospitalist
PROC: 0Y6N0Z9 Detachment at Left Foot, Partial 1st Ray, Open Approach (ICD-10-PCS; principal; 2022-02-01)
PROC: 0Y6N0ZB Detachment at Left Foot, Partial 2nd Ray, Open Approach (ICD-10-PCS; 2022-02-01)
PROC: 0Y6N0ZC Detachment at Left Foot, Partial 3rd Ray, Open Approach (ICD-10-PCS; 2022-02-01)
PROC: 0Y6N0ZD Detachment at Left Foot, Partial 4th Ray, Open Approach (ICD-10-PCS; 2022-02-01)
PROC: 0Y6N0ZF Detachment at Left Foot, Partial 5th Ray, Open Approach (ICD-10-PCS; 2022-02-01)
DX: E11.69 Type 2 diabetes mellitus with other specified complication (principal); I13.0 Hypertensive heart and chronic kidney disease with heart failure and stage 1 through stage 4 chronic kidney disease, or unspecified chronic kidney disease; I48.92 Unspecified atrial flutter; I50.42 Chronic combined systolic (congestive) and diastolic (congestive) heart failure; M86.172 Other acute osteomyelitis, left ankle and foot; N17.9 Acute kidney failure, unspecified; I25.10 Atherosclerotic heart disease of native coronary artery without angina pectoris; E11.51 Type 2 diabetes mellitus with diabetic peripheral angiopathy without gangrene; E11.22 Type 2 diabetes mellitus with diabetic chronic kidney disease; E11.40 Type 2 diabetes mellitus with diabetic neuropathy, unspecified; E11.621 Type 2 diabetes mellitus with foot ulcer; E78.5 Hyperlipidemia, unspecified; L97.529 Non-pressure chronic ulcer of other part of left foot with unspecified severity; N18.30 Chronic kidney disease, stage 3 unspecified; Z79.82 Long term (current) use of aspirin; Z79.4 Long term (current) use of insulin; Z79.899 Other long term (current) drug therapy; Z89.511 Acquired absence of right leg below knee; I25.5 Ischemic cardiomyopathy
CPT/HCPCS: 36415; 36416; 80048; 80053; 80202; 85025; 86140; 87070; 87077; 87186; 87205; 88305; 88311; 97139; C1713; J0692; J1644; J1815; J2405; J2543; J2704; J3010; J3370; J3490; J7030; J7050; Q0162

== ENCOUNTER 2022-04-03 19:20 | Inpatient (IN) | payer OTHER ==
[2022-04-03] MEDS ORDERED: Magnesium 2 GM/50 ML BAG (IN WATER) ONE (19:41)
[2022-04-03 20:12] LABS: Hemoglobin 9.8 g/dL (14.0-18.0); Mean Corpuscular HGB CONC 29.8 g/dL (32.0-36.0); Mean Corpuscular Hemoglobin 25.3 pg (27.0-31.0); Mean Platelet Volume 9.2 fL (7.4-10.4); Platelet Count 471 10x3/uL (130-400); RBC Distribution Width 18.1 % (11.5-14.5); Red Blood Cell (RBC) Count 3.87 mill/uL (4.70-6.10); White Blood Cell (WBC) Count 16.1 10x3/uL (4.8-10.8)
[2022-04-03 20:14] LABS: Bilirubin Negative (Negative); Blood, Urine Negative (Negative); Clarity Clear (Clear); Glucose, Urine (Dipstick) Greater than 1000 mg/dL (Negative); Ketone, Urine 60 mg/dL (Negative); Leukocyte Negative Leu/uL (Negative); Nitrite Negative (Negative); Protein, Urine (Dipstick) 10 mg/dL (Neg-Trace); Specific Gravity, Urine 1.028 (1.002-1.036); Urobilinogen Normal mg/dL (Less than 2); pH, Urine 5.5 (5.0-9.0)
[2022-04-03] MEDS ORDERED: Diltiazem 125 MG/25 ML ONE (20:18)
[2022-04-03] MEDS ORDERED: Piperacillin/Tazobactam 3.375 GM VIAL ONE (20:20)
[2022-04-03 20:29] LABS: ALT (SGPT) 273 U/L (8-55); AST (SGOT) 31 U/L (5-34); Albumin 3.2 g/dL (3.5-5.0); Alkaline Phosphatase 93 U/L (40-110); Anion Gap 23 mmol/L (10-20); BUN (Urea Nitrogen) 34 mg/dL (8.4-25.7); Bilirubin, Total 0.6 mg/dL (0.2-1.2); Calc. Creatinine Clearance 0 mL/min (70-130); Calcium 10.1 mg/dL (7.8-10.44); Carbon Dioxide 14 mmol/L (22-29); Chloride 111 mmol/L (98-107); Estimated GFR 60; Glucose 353 mg/dL (70-105); Lipase 7 U/L (8-78); Protein, Total 8.2 g/dL (6.0-8.3); Sodium 142 mmol/L (136-145)
[2022-04-03 20:37] LABS: SARS-CoV-2 NAA Rapid Test Not Detected (NotDetected)
[2022-04-03 20:38] LABS: Band 2 % (5-11); Hypochromia SLIGHT = 6-15 cells (100X) (0-5/hpf); Large Platelets SLIGHT; Lymphocytes 3 % (21-51); MDiff Complete? YES; Metamyelocyte 4 % (0-0); Monocytes 6 % (0-10); Neutrophil 85 % (42-75); Platelet Morphology Comment Appears Increased; Target Cells SLIGHT = 2-5 cells (100X) (0-1/hpf); Tear Drops SLIGHT = 2-5 cells (100X) (0-1/hpf)
[2022-04-03 20:51] LABS: CKMB 1.2 ng/mL (0-6.6)
[2022-04-03] MEDS ORDERED: Vancomycin 1 GM/200 ML (FROZEN) BAG ONE (21:29)
[2022-04-03 21:59] LABS: Actual Bicarbonate (HCO3v) 16 mEq/L (22-28); Base Excess -8.1 mEq/L (-2.0 to +3.0); Calcium, Ionized (venous) 1.21 mmol/L (1.16-1.32); Chloride (VBG) 113 mmol/L (98-106); Hemoglobin (Hb) 11.3 g/dL (13.1-17.2); Potassium (VBG) 5.86 mmol/L (3.70-5.30); Sodium 143.7 mmol/L (133-146); pH (venous) 7.38 (7.32-7.43)
[2022-04-03] MEDS ORDERED: Sodium Bicarb 50 MEQ/50 ML VIAL ONE (22:21)
[2022-04-03] MEDS ORDERED: Insulin Regular 300 UNITS/3 ML VIAL ONE ×3 (22:21→22:24)
[2022-04-03] MEDS ORDERED: Calcium Chloride 1 GM/10 ML Abboject SYRINGE ONE ×2 (22:21→22:23)
[2022-04-03] MEDS ORDERED: Senokot S 8.6-50 MG TAB PO PRN (23:44)
[2022-04-03] MEDS ORDERED: Acetaminophen 325 MG TAB PO PRN (23:44)
[2022-04-03] MEDS ORDERED: Ondansetron ODT 4 MG TAB PO PRN (23:44)
[2022-04-03] MEDS ORDERED: Cefepime 2 GM in Sodium Chloride 0.9% 100 ML IVPB SCH (23:59)
[2022-04-04 00:07] LABS: Hemoglobin A1c 7.2 % (4.0-6.0)
[2022-04-04] MEDS ORDERED: LORazepam 2 MG/ML SYR.(CARPUJECT) ONE (00:59)
[2022-04-04] MEDS ORDERED: Electrolyte Replacement Protocol IVPB PRN (01:12)
[2022-04-04] MEDS ORDERED: Dextrose 5 %-0.45 % NaCl 1,000 ML IV PRN (01:12)
[2022-04-04] MEDS ORDERED: D5 1/2 NS w/20 mEq KCL 1,000 ML IV PRN (01:12)
[2022-04-04] MEDS ORDERED: NS 0.9% w/ 20 MEQ KCL 1,000 ML IV PRN ×2 (01:12)
[2022-04-04] MEDS ORDERED: Sodium Chloride 0.9% 1,000 ML IV PRN ×4 (01:12)
[2022-04-04] MEDS ORDERED: Dextrose 50% Abboject 50 ML SYRINGE SLOW IVP PRN (01:12)
[2022-04-04 01:13] LABS: Chloride 117 mmol/L (98-107); Potassium 5.4 mmol/L (3.5-5.1); Sodium 145 mmol/L (136-145)
[2022-04-04 01:14] LABS: Calcium 10.8 mg/dL (7.8-10.44); Glucose 227 mg/dL (70-105)
[2022-04-04] MEDS ORDERED: HUMULIN R 100 UNITS in Sodium Chloride 0.9% 100 ML IVPB SCH (01:15)
[2022-04-04 01:16] LABS: Anion Gap 21 mmol/L (10-20); Carbon Dioxide 12 mmol/L (22-29)
[2022-04-04 01:17] LABS: Calc. Creatinine Clearance 0 mL/min (70-130); Estimated GFR 73
[2022-04-04 01:18] LABS: BUN (Urea Nitrogen) 30 mg/dL (8.4-25.7)
[2022-04-04] MEDS ORDERED: Vancomycin 1 GM/200 ML (FROZEN) BAG ONE (01:47)
[2022-04-04] MEDS ORDERED: Vancomycin 1.5 GRAM/300 ML BAG 1.5 GM in Premix Bag 1 BAG IVPB SCH (06:00)
[2022-04-04] MEDS ORDERED: Furosemide 40 MG TAB PO SCH (09:00)
[2022-04-04] MEDS ORDERED: Famotidine/PF 20 mg/2ml Vial SLOW IVP SCH (09:00)
[2022-04-04] MEDS ORDERED: Insulin Glargine 30 UNITS/0.3 ML VIAL SC SCH (09:00)
[2022-04-04] MEDS ORDERED: Famotidine 20 MG TAB PO SCH (09:00)
[2022-04-04] MEDS ORDERED: Lisinopril 20 MG TAB PO SCH (09:00)
[2022-04-04] MEDS ORDERED: Metoprolol Tartrate 50 MG TAB PO SCH (09:00)
[2022-04-04] MEDS ORDERED: Saccharomyces boulardii 250 MG CAP PO SCH (09:00)
[2022-04-04] MEDS ORDERED: Vancomycin HCl 1.5 GM in Sodium Chloride 0.9% 250 ML 300 ML IVPB SCH (09:00)
[2022-04-04] MEDS ORDERED: Empagliflozin 25 MG TAB PO SCH (09:00)
[2022-04-04] MEDS ORDERED: Atorvastatin Calcium 10 MG TAB PO SCH (17:00)
== END 2022-04-04 02:32 | disposition short-term general hospital (02) | DRG 564 ==
LOC: ERS 19:20 → ERHOLD 22:58
PROVIDERS: ADMIT Student in an Organized Health Care Education/Training Program; ATTEND Family Medicine
PROC: 5A2204Z Restoration of Cardiac Rhythm, Single (ICD-10-PCS; principal; 2022-04-03)
DX: T87.44 Infection of amputation stump, left lower extremity (principal); A41.9 Sepsis, unspecified organism; R65.21 Severe sepsis with septic shock; I48.92 Unspecified atrial flutter; N17.9 Acute kidney failure, unspecified; I50.22 Chronic systolic (congestive) heart failure; I13.0 Hypertensive heart and chronic kidney disease with heart failure and stage 1 through stage 4 chronic kidney disease, or unspecified chronic kidney disease; E87.5 Hyperkalemia; E11.65 Type 2 diabetes mellitus with hyperglycemia; N18.2 Chronic kidney disease, stage 2 (mild); E11.22 Type 2 diabetes mellitus with diabetic chronic kidney disease; M10.9 Gout, unspecified; Y83.8 Other surgical procedures as the cause of abnormal reaction of the patient, or of later complication, without mention of misadventure at the time of the procedure; D63.1 Anemia in chronic kidney disease; Z20.822 Contact with and (suspected) exposure to COVID-19; Z79.82 Long term (current) use of aspirin; Z79.4 Long term (current) use of insulin; Z79.84 Long term (current) use of oral hypoglycemic drugs; Z79.899 Other long term (current) drug therapy; Z89.511 Acquired absence of right leg below knee
CPT/HCPCS: 36415; 70450; 71045; 80048; 80053; 81003; 82010; 82553; 82805; 83036; 83605; 83690; 83880; 84443; 84484; 85025; 87040; 87077; 87086; 87186; 93005; J1650; J1815; J2060; J2543; J3370-JW; J3475

== ENCOUNTER 2022-08-28 00:23 | Inpatient (IN) | payer OTHER ==
[2022-08-28 01:29] LABS: Actual Bicarbonate (HCO3v) 19.1 mEq/L (22-28); Base Excess -5.3 mEq/L (-2.0 to +3.0); Calcium, Ionized (venous) 1.14 mmol/L (1.16-1.32); Chloride (VBG) 113 mmol/L (98-106); Hematocrit-VBG 33 % (42.0-52.0); Hemoglobin (Hb) 11.1 g/dL (13.1-17.2); Sodium 140.9 mmol/L (133-146); pH (venous) 7.377 (7.32-7.43)
[2022-08-28 01:30] LABS: Potassium (VBG) 2.53 mmol/L (3.70-5.30)
[2022-08-28] MEDS ORDERED: Potassium Chloride 20 MEQ TAB ONE ×3 (02:54→09:29)
[2022-08-28 03:03] LABS: CKMB 2.1 ng/mL (0-6.6)
[2022-08-28] MEDS ORDERED: Senokot S 8.6-50 MG TAB PO PRN (03:57)
[2022-08-28] MEDS ORDERED: Calcium Carbonate 500 MG ChewTAB PO PRN (03:57)
[2022-08-28] MEDS ORDERED: Dextrose 50% Abboject 50 ML SYRINGE SLOW IVP PRN (04:08)
[2022-08-28] MEDS ORDERED: Dextrose 5% in Water 1,000 ML IV PRN (04:08)
[2022-08-28] MEDS ORDERED: Glucagon 1 MG/ML KIT IM PRN (04:08)
[2022-08-28] MEDS ORDERED: Insulin Regular 300 UNITS/3 ML VIAL SC PRN ×2 (04:08)
[2022-08-28] MEDS ORDERED: Electrolyte Replacement Protocol 1 EACH FS SCH (04:08)
[2022-08-28 04:28] LABS: Hematocrit 31.8 % (42.0-52.0); Hemoglobin 10.2 g/dL (14.0-18.0); Mean Corpuscular HGB CONC 32.1 g/dL (32.0-36.0); Mean Corpuscular Hemoglobin 24.3 pg (27.0-31.0); Mean Corpuscular Volume 75.9 fl (78.0-98.0); Platelet Count 317 10x3/uL (130-400); RBC Distribution Width 21.4 % (11.5-14.5); Red Blood Cell (RBC) Count 4.19 mill/uL (4.70-6.10); White Blood Cell (WBC) Count 11.1 10x3/uL (4.8-10.8)
[2022-08-28] MEDS ORDERED: HumaLOG 300 UNITS/3 ML VIAL SC PRN (04:30)
[2022-08-28 04:52] LABS: ALT (SGPT) 16 U/L (8-55); AST (SGOT) 15 U/L (5-34); Albumin 2.8 g/dL (3.5-5.0); Alkaline Phosphatase 99 U/L (40-110); Anion Gap 16 mmol/L (10-20); BUN (Urea Nitrogen) 28 mg/dL (8.4-25.7); Bilirubin, Total 0.5 mg/dL (0.2-1.2); Calc. Creatinine Clearance 0 mL/min (70-130); Calcium 8.7 mg/dL (7.8-10.44); Carbon Dioxide 15 mmol/L (22-29); Chloride 111 mmol/L (98-107); Estimated GFR 58; Globulin 3.5 g/dL (2.4-3.5); Glucose 158 mg/dL (70-105); Protein, Total 6.3 g/dL (6.0-8.3); Sodium 139 mmol/L (136-145)
[2022-08-28 04:58] LABS: Lactic Acid 1.4 mmol/L (0.5-2.2)
[2022-08-28 05:01] LABS: Potassium 2.6 mmol/L (3.5-5.1)
[2022-08-28 05:08] LABS: Troponin I 0.112 ng/mL (< 0.028)
[2022-08-28 05:36] LABS: Delete Auto Diff?? YES; Manual Diff?? YES
[2022-08-28] MEDS: Potassium Chloride 20 MEQ TAB PO SCH ×4 (05:52→20:28)
[2022-08-28] MEDS ORDERED: Morphine 2 MG/ML VIAL SLOW IVP SCH (07:00)
[2022-08-28 07:16] LABS: Band 11 % (5-11); Burr Cells MARKED = >16 cells HPF (0-1); CellaVision Operator ID LAB.GE; Giant Platelets 1.9 % (0-5); Large Platelets 9.8 % (0-5); Lymphocytes 4 % (21-51); Microcytosis SLIGHT = 6-15 cells HPF (0-5); Monocytes 6 % (0-10); Neutrophil 77 % (42-75); Platelet Adequacy Comment Platelets Normal; Polychromasia SLIGHT = 2-3 cells HPF (0-2); Reactive Lymphocytes 1 % (0-10); Total Cell Count 102
[2022-08-28] MEDS ORDERED: Morphine 2 MG/ML VIAL ONE (07:24)
[2022-08-28] MEDS ORDERED: Ondansetron ODT 4 MG TAB ONE (07:27)
[2022-08-28] MEDS: Ondansetron ODT 4 MG TAB PO PRN (07:31)
[2022-08-28] MEDS ORDERED: Spironolactone 25 MG TAB PO SCH (08:00)
[2022-08-28 08:30] VITALS: BMI 24.7
[2022-08-28] MEDS ORDERED: VANCOMYCIN IVPB PRN (08:30)
[2022-08-28] MEDS ORDERED: Sacubitril 49 MG/Valsartan 51 MG TABLET PO SCH (09:00)
[2022-08-28] MEDS ORDERED: Famotidine 20 MG TAB PO SCH (09:00)
[2022-08-28] MEDS ORDERED: Furosemide 20 MG TAB PO SCH (09:00)
[2022-08-28] MEDS ORDERED: Vancomycin 1 GM in Premix Bag 1 BAG IVPB SCH (09:00)
[2022-08-28] MEDS ORDERED: Vancomycin 1 GM/200 ML (FROZEN) BAG ONE (09:29)
[2022-08-28] MEDS ORDERED: HumaLOG 300 UNITS/3 ML VIAL ONE (09:29)
[2022-08-28] MEDS ORDERED: Cefepime 1 GM VIAL ONE (09:29)
[2022-08-28] MEDS ORDERED: Aspirin Chewable 81 MG TAB ONE (09:29)
[2022-08-28] MEDS ORDERED: Famotidine 20 MG TAB ONE (09:29)
[2022-08-28 09:43] LABS: Troponin I 0.103 ng/mL (< 0.028)
[2022-08-28] MEDS: Cefepime 1 GM in Sodium Chloride 0.9% 100 ML IVPB SCH ×2 (09:46→20:22)
[2022-08-28] MEDS: Carvedilol 6.25 MG TAB PO SCH ×2 (09:46→15:22)
[2022-08-28] MEDS: Apixaban 5 MG TAB PO SCH ×2 (09:46→20:23)
[2022-08-28] MEDS: Aspirin 81 mg Enteric Coated Tablet PO SCH (09:46)
[2022-08-28] MEDS: Empagliflozin 10 MG TAB PO SCH (09:46)
[2022-08-28] MEDS: HumaLOG 300 UNITS/3 ML VIAL SC SCH ×3 (09:47→20:25)
[2022-08-28] MEDS: Insulin Glargine 30 UNITS/0.3 ML VIAL SC SCH (09:47)
[2022-08-28] MEDS: hydrALAZINE 25 MG TAB PO SCH ×2 (10:28→15:22)
[2022-08-28] MEDS ORDERED: Electrolyte Replacement Protocol FS PRN (13:45)
[2022-08-28] MEDS: Acetaminophen 325 MG TAB PO PRN (15:22)
[2022-08-28 17:03] LABS: Anion Gap 12 mmol/L (10-20); BUN (Urea Nitrogen) 22 mg/dL (8.4-25.7); Calc. Creatinine Clearance 102 mL/min (70-130); Calcium 8.6 mg/dL (7.8-10.44); Carbon Dioxide 17 mmol/L (22-29); Chloride 111 mmol/L (98-107); Estimated GFR 88; Glucose 93 mg/dL (70-105); Magnesium 1.7 mg/dL (1.6-2.6); Potassium 3.1 mmol/L (3.5-5.1); Sodium 137 mmol/L (136-145)
[2022-08-28] MEDS ORDERED: Magnesium 2 GM/50 ML(in water) 2 GM in Premix Bag 1 BAG IVPB SCH (17:15)
[2022-08-28] MEDS: oxyCODONE 5 MG TAB PO PRN (18:46)
[2022-08-28] MEDS: Gabapentin 300 MG CAP PO SCH (20:22)
[2022-08-28] MEDS: Vancomycin 1 GM in Premix Bag 1 BAG IVPB SCH (20:22)
[2022-08-28] MEDS: Famotidine 20 MG TAB PO SCH (20:23)
[2022-08-28] MEDS: Atorvastatin Calcium 10 MG TAB PO SCH (20:24)
[2022-08-29 04:51] LABS: Hematocrit 30.4 % (42.0-52.0); Hemoglobin 9.9 g/dL (14.0-18.0); Mean Corpuscular HGB CONC 32.6 g/dL (32.0-36.0); Mean Corpuscular Hemoglobin 24.1 pg (27.0-31.0); Platelet Count 324 10x3/uL (130-400); RBC Distribution Width 21.3 % (11.5-14.5); Red Blood Cell (RBC) Count 4.11 mill/uL (4.70-6.10); White Blood Cell (WBC) Count 12.5 10x3/uL (4.8-10.8)
[2022-08-29 04:57] LABS: Delete Auto Diff?? YES; Manual Diff?? YES
[2022-08-29 05:23] LABS: Anion Gap 15 mmol/L (10-20); BUN (Urea Nitrogen) 20 mg/dL (8.4-25.7); Calc. Creatinine Clearance 112 mL/min (70-130); Calcium 8.5 mg/dL (7.8-10.44); Carbon Dioxide 16 mmol/L (22-29); Chloride 110 mmol/L (98-107); Estimated GFR 98; Glucose 82 mg/dL (70-105); Potassium 3.6 mmol/L (3.5-5.1); Sodium 137 mmol/L (136-145)
[2022-08-29 06:04] LABS: Band 8 % (5-11); Burr Cells MARKED = >16 cells HPF (0-1); CellaVision Operator ID LAB.GE; Eosinophils 1 % (0-10); Hypersegmented Neutrophil SLIGHT (None Seen); Hypochromia SLIGHT = 6-15 cells HPF (0-5); Large Platelets 13.3 % (0-5); Lymphocytes 8 % (21-51); Metamyelocyte 2 % (0-0); Microcytosis SLIGHT = 6-15 cells HPF (0-5); Monocytes 6 % (0-10); Myelocyte 1 % (0-0); Neutrophil 72 % (42-75); Platelet Adequacy Comment Platelets Normal; Polychromasia SLIGHT = 2-3 cells HPF (0-2); Reactive Lymphocytes 3 % (0-10); Total Cell Count 105
[2022-08-29] MEDS: hydrALAZINE 25 MG TAB PO SCH ×2 (08:30→15:59)
[2022-08-29] MEDS: Aspirin 81 mg Enteric Coated Tablet PO SCH (08:30)
[2022-08-29] MEDS: Apixaban 5 MG TAB PO SCH ×2 (08:30→21:03)
[2022-08-29] MEDS: oxyCODONE 5 MG TAB PO PRN ×2 (08:30→15:59)
[2022-08-29] MEDS: Empagliflozin 10 MG TAB PO SCH (08:31)
[2022-08-29] MEDS: Famotidine 20 MG TAB PO SCH ×2 (08:31→21:03)
[2022-08-29] MEDS: Insulin Glargine 30 UNITS/0.3 ML VIAL SC SCH (08:31)
[2022-08-29] MEDS: Saccharomyces boulardii 250 MG CAP PO SCH (08:31)
[2022-08-29] MEDS: Carvedilol 6.25 MG TAB PO SCH ×2 (08:31→15:59)
[2022-08-29] MEDS: Cefepime 1 GM in Sodium Chloride 0.9% 100 ML IVPB SCH (08:32)
[2022-08-29] MEDS: HumaLOG 300 UNITS/3 ML VIAL SC SCH ×3 (08:36→21:03)
[2022-08-29] MEDS: Vancomycin 1 GM in Premix Bag 1 BAG IVPB SCH ×2 (08:37→21:02)
[2022-08-29 13:16] LABS: RBC Count-Automated (BF) 898 /cu.mm; WBC/Nucleated-Auto (BF) 6323 /cu.mm
[2022-08-29 13:23] LABS: Body Fluid Source Synovial Fluid
[2022-08-29 13:24] LABS: BF Color Yellow; Clarity Cloudy/Turbid (Clear); Tube # EDTA
[2022-08-29 13:39] LABS: Cell Count Non Hematic 10 %
[2022-08-29 13:42] LABS: BF Segmented Neutrophils 88 %; Lymphocytes 2 %
[2022-08-29 20:30] LABS: Vancomycin, Trough 11.4 ug/mL
[2022-08-29] MEDS: Gabapentin 300 MG CAP PO SCH (21:03)
[2022-08-29] MEDS: Atorvastatin Calcium 10 MG TAB PO SCH (21:03)
[2022-08-30 04:37] LABS: Hematocrit 29.7 % (42.0-52.0); Hemoglobin 9.7 g/dL (14.0-18.0); Mean Corpuscular HGB CONC 32.7 g/dL (32.0-36.0); Mean Corpuscular Hemoglobin 24.1 pg (27.0-31.0); Mean Corpuscular Volume 73.7 fl (78.0-98.0); Mean Platelet Volume 11.3 fL (7.4-10.4); Platelet Count 374 10x3/uL (130-400); RBC Distribution Width 21.4 % (11.5-14.5); Red Blood Cell (RBC) Count 4.03 mill/uL (4.70-6.10)
[2022-08-30 05:06] LABS: Delete Auto Diff?? YES; Manual Diff?? YES
[2022-08-30 05:08] LABS: Anion Gap 14 mmol/L (10-20); BUN (Urea Nitrogen) 17 mg/dL (8.4-25.7); Calc. Creatinine Clearance 130 mL/min (70-130); Calcium 9.1 mg/dL (7.8-10.44); Carbon Dioxide 20 mmol/L (22-29); Chloride 108 mmol/L (98-107); Estimated GFR 103; Glucose 78 mg/dL (70-105); Magnesium 2.1 mg/dL (1.6-2.6); Potassium 3.4 mmol/L (3.5-5.1); Sodium 139 mmol/L (136-145)
[2022-08-30] MEDS: Vancomycin 1 GM in Premix Bag 1 BAG IVPB SCH ×3 (05:12→21:13)
[2022-08-30] MEDS ORDERED: Potassium Chloride 20 MEQ TAB PO SCH (08:00)
[2022-08-30] MEDS: Famotidine 20 MG TAB PO SCH ×2 (08:55→22:19)
[2022-08-30] MEDS: hydrALAZINE 25 MG TAB PO SCH ×2 (08:55→16:46)
[2022-08-30] MEDS: Aspirin 81 mg Enteric Coated Tablet PO SCH (08:55)
[2022-08-30] MEDS: Carvedilol 6.25 MG TAB PO SCH ×2 (08:55→16:46)
[2022-08-30] MEDS: Saccharomyces boulardii 250 MG CAP PO SCH (08:55)
[2022-08-30] MEDS: Empagliflozin 10 MG TAB PO SCH (08:55)
[2022-08-30] MEDS: Apixaban 5 MG TAB PO SCH ×2 (08:55→22:19)
[2022-08-30] MEDS: Insulin Glargine 30 UNITS/0.3 ML VIAL SC SCH (08:55)
[2022-08-30] MEDS: HumaLOG 300 UNITS/3 ML VIAL SC SCH ×3 (08:59→21:00)
[2022-08-30 09:21] LABS: Band 4 % (5-11); Burr Cells MARKED = >16 cells HPF (0-1); CellaVision Operator ID LAB.GE; Hypersegmented Neutrophil SLIGHT (None Seen); Large Platelets 1.9 % (0-5); Lymphocytes 4 % (21-51); Microcytosis SLIGHT = 6-15 cells HPF (0-5); Monocytes 10 % (0-10); Myelocyte 1 % (0-0); Neutrophil 79 % (42-75); Platelet Adequacy Comment Platelets Normal; Polychromasia MODERATE = 3-4 cells HPF (0-2); Reactive Lymphocytes 2 % (0-10); Total Cell Count 106
[2022-08-30] MEDS: oxyCODONE 5 MG TAB PO PRN (16:47)
[2022-08-30] MEDS: Gabapentin 300 MG CAP PO SCH (22:19)
[2022-08-30] MEDS: Atorvastatin Calcium 10 MG TAB PO SCH (22:19)
[2022-08-30] MEDS: Sacubitril 49 MG/Valsartan 51 MG TABLET PO SCH (22:20)
[2022-08-30] MEDS: Morphine 4 MG/ML VIAL SLOW IVP PRN (23:56)
[2022-08-31] MEDS: Morphine 4 MG/ML VIAL SLOW IVP PRN ×2 (03:58→10:54)
[2022-08-31] MEDS: Vancomycin 1 GM in Premix Bag 1 BAG IVPB SCH ×3 (04:52→21:30)
[2022-08-31] MEDS: hydrALAZINE 25 MG TAB PO SCH (09:34)
[2022-08-31] MEDS: Saccharomyces boulardii 250 MG CAP PO SCH (10:01)
[2022-08-31] MEDS: Aspirin 81 mg Enteric Coated Tablet PO SCH (10:02)
[2022-08-31] MEDS: Furosemide 20 MG TAB PO SCH (10:02)
[2022-08-31] MEDS: Famotidine 20 MG TAB PO SCH ×2 (10:02→21:30)
[2022-08-31] MEDS: Sacubitril 49 MG/Valsartan 51 MG TABLET PO SCH ×2 (10:03→21:35)
[2022-08-31] MEDS: Apixaban 5 MG TAB PO SCH (10:03)
[2022-08-31] MEDS: Spironolactone 25 MG TAB PO SCH (10:03)
[2022-08-31] MEDS: Carvedilol 6.25 MG TAB PO SCH (10:03)
[2022-08-31] MEDS: HumaLOG 300 UNITS/3 ML VIAL SC SCH (10:05)
[2022-08-31] MEDS: Empagliflozin 10 MG TAB PO SCH (10:06)
[2022-08-31] MEDS: Insulin Glargine 30 UNITS/0.3 ML VIAL SC SCH (10:16)
[2022-08-31] MEDS ORDERED: Electrolyte Replacement Protocol 1 EACH FS SCH (14:45)
[2022-08-31 17:08] LABS: #Monocytes 1.1 thou/uL (0.11-0.59); %Basophils 0.1 % (0.0-1.0); %Eosinophils 0.2 % (0.0-10.0); %Lymphocytes 5.9 % (21.0-51.0); %Monocytes 6.9 % (0.0-10.0); %Neutrophils 85.3 % (42.0-75.0); Hematocrit 27.9 % (42.0-52.0); Hemoglobin 9.2 g/dL (14.0-18.0); Mean Corpuscular Hemoglobin 24.3 pg (27.0-31.0); Mean Corpuscular Volume 73.8 fl (78.0-98.0); Mean Platelet Volume 11.4 fL (7.4-10.4); Platelet Count 347 10x3/uL (130-400); RBC Distribution Width 20.9 % (11.5-14.5); Red Blood Cell (RBC) Count 3.78 mill/uL (4.70-6.10); White Blood Cell (WBC) Count 16.4 10x3/uL (4.8-10.8)
[2022-08-31 17:32] LABS: ALT (SGPT) 173 U/L (8-55); AST (SGOT) 524 U/L (5-34); Albumin 2.4 g/dL (3.5-5.0); Alkaline Phosphatase 216 U/L (40-110); Anion Gap 12 mmol/L (10-20); BUN (Urea Nitrogen) 13 mg/dL (8.4-25.7); Bilirubin, Total 0.9 mg/dL (0.2-1.2); Calc. Creatinine Clearance 137 mL/min (70-130); Calcium 8.6 mg/dL (7.8-10.44); Carbon Dioxide 24 mmol/L (22-29); Chloride 103 mmol/L (98-107); Estimated GFR 104; Globulin 3.5 g/dL (2.4-3.5); Glucose 94 mg/dL (70-105); Magnesium 1.8 mg/dL (1.6-2.6); Potassium 3.5 mmol/L (3.5-5.1); Protein, Total 5.9 g/dL (6.0-8.3); Sodium 135 mmol/L (136-145)
[2022-08-31 17:36] LABS: Anisocytosis SLIGHT = 6-15 cells HPF (0-5); Burr Cells SLIGHT = 2-5 cells HPF (0-1); CellaVision Operator ID LAB.MJL; Elliptocytes SLIGHT = 2-5 cells HPF (0-1); Hypochromia SLIGHT = 6-15 cells HPF (0-5); Microcytosis SLIGHT = 6-15 cells HPF (0-5); Ovalocytes SLIGHT = 2-5 cells HPF (0-1); Platelet Adequacy Comment Platelets Normal; Poikilocytosis SLIGHT = 6-15 cells HPF (0-5); Polychromasia SLIGHT = 2-3 cells HPF (0-2); Target Cells SLIGHT = 2-5 cells HPF (0-1); Tear Drops SLIGHT = 2-5 cells HPF (0-1)
[2022-08-31] MEDS ORDERED: Morphine 4 MG/ML VIAL SLOW IVP PRN (18:38)
[2022-08-31] MEDS ORDERED: Dextrose 5% in Water 1,000 ML IV SCH (18:45)
[2022-08-31 20:55] LABS: Vancomycin, Trough 12.8 ug/mL
[2022-08-31] MEDS: Atorvastatin Calcium 10 MG TAB PO SCH (21:30)
[2022-08-31] MEDS: Gabapentin 300 MG CAP PO SCH (21:34)
[2022-08-31] MEDS: Senokot S 8.6-50 MG TAB PO SCH (21:35)
[2022-09-01] MEDS: Vancomycin 1 GM in Premix Bag 1 BAG IVPB SCH ×3 (05:17→21:26)
[2022-09-01 07:11] LABS: Hemoglobin 8.9 g/dL (14.0-18.0); Mean Corpuscular HGB CONC 31.8 g/dL (32.0-36.0); Mean Corpuscular Hemoglobin 23.8 pg (27.0-31.0); Mean Corpuscular Volume 74.9 fl (78.0-98.0); Mean Platelet Volume 10.9 fL (7.4-10.4); Platelet Count 346 10x3/uL (130-400); RBC Distribution Width 21.2 % (11.5-14.5); Red Blood Cell (RBC) Count 3.74 mill/uL (4.70-6.10); White Blood Cell (WBC) Count 17.6 10x3/uL (4.8-10.8)
[2022-09-01 07:24] LABS: Delete Auto Diff?? YES; Manual Diff?? YES
[2022-09-01] MEDS: Carvedilol 6.25 MG TAB PO SCH ×3 (07:50→17:07)
[2022-09-01] MEDS: hydrALAZINE 25 MG TAB PO SCH ×3 (07:51→17:09)
[2022-09-01 08:00] LABS: Anion Gap 10 mmol/L (10-20); BUN (Urea Nitrogen) 12 mg/dL (8.4-25.7); Calc. Creatinine Clearance 140 mL/min (70-130); Calcium 8.6 mg/dL (7.8-10.44); Carbon Dioxide 26 mmol/L (22-29); Chloride 103 mmol/L (98-107); Estimated GFR 105; Glucose 128 mg/dL (70-105); Potassium 3.4 mmol/L (3.5-5.1); Sodium 136 mmol/L (136-145)
[2022-09-01] MEDS ORDERED: Potassium Chloride 20 MEQ TAB PO SCH (08:00)
[2022-09-01] MEDS ORDERED: Magnesium 2 GM/50 ML(in water) 2 GM in Premix Bag 1 BAG IVPB SCH (08:00)
[2022-09-01 08:29] LABS: Band 2 % (5-11); CellaVision Operator ID LAB.GE; Giant Platelets 2.8 % (0-5); Hypersegmented Neutrophil SLIGHT (None Seen); Hypochromia SLIGHT = 6-15 cells HPF (0-5); Large Platelets 4.7 % (0-5); Lymphocytes 7 % (21-51); Metamyelocyte 2 % (0-0); Microcytosis SLIGHT = 6-15 cells HPF (0-5); Monocytes 5 % (0-10); Myelocyte 3 % (0-0); Neutrophil 76 % (42-75); Ovalocytes SLIGHT = 2-5 cells HPF (0-1); Platelet Adequacy Comment Platelets Normal; Polychromasia SLIGHT = 2-3 cells HPF (0-2); Reactive Lymphocytes 4 % (0-10); Target Cells SLIGHT = 2-5 cells HPF (0-1); Total Cell Count 106
[2022-09-01] MEDS: Sacubitril 49 MG/Valsartan 51 MG TABLET PO SCH ×2 (08:50→21:28)
[2022-09-01] MEDS: Senokot S 8.6-50 MG TAB PO SCH ×2 (08:51→21:29)
[2022-09-01] MEDS: Empagliflozin 10 MG TAB PO SCH (08:51)
[2022-09-01] MEDS: Saccharomyces boulardii 250 MG CAP PO SCH (08:51)
[2022-09-01] MEDS: Spironolactone 25 MG TAB PO SCH (08:51)
[2022-09-01] MEDS: Furosemide 20 MG TAB PO SCH (08:51)
[2022-09-01] MEDS: Famotidine 20 MG TAB PO SCH ×2 (08:52→21:28)
[2022-09-01] MEDS ORDERED: Insulin Glargine 30 UNITS/0.3 ML VIAL SC SCH (09:00)
[2022-09-01] MEDS: Morphine 4 MG/ML VIAL SLOW IVP PRN (09:08)
[2022-09-01] MEDS: Aspirin 81 mg Enteric Coated Tablet PO SCH (09:12)
[2022-09-01] MEDS ORDERED: fentaNYL PF 100 MCG/2 ML SYRINGE ONE (12:04)
[2022-09-01] MEDS ORDERED: Midazolam HCl 2 mg/2 ml Vial ONE (12:04)
[2022-09-01] MEDS ORDERED: Phenylephrine 10 MG/ML VIAL ONE (12:04)
[2022-09-01] MEDS ORDERED: Ketamine 50 MG/ML (10ML VIAL) ONE (12:14)
[2022-09-01] MEDS ORDERED: Lidocaine 4% Topical Sol 50 ML BOT ONE (12:14)
[2022-09-01] MEDS: oxyCODONE 5 MG TAB PO PRN (17:07)
[2022-09-01 20:23] LABS: Vancomycin, Trough 19.4 ug/mL
[2022-09-01] MEDS: Gabapentin 300 MG CAP PO SCH (21:28)
[2022-09-01] MEDS: Atorvastatin Calcium 10 MG TAB PO SCH (21:29)
[2022-09-01] MEDS: Apixaban 5 MG TAB PO SCH (21:29)
[2022-09-02] MEDS: Morphine 4 MG/ML VIAL SLOW IVP PRN (00:13)
[2022-09-02] MEDS: Vancomycin 1 GM in Premix Bag 1 BAG IVPB SCH ×3 (05:16→20:57)
[2022-09-02 06:13] LABS: #Neutrophils 15.8 thou/uL (1.40-6.50); %Basophils 0.2 % (0.0-1.0); %Eosinophils 0.2 % (0.0-10.0); %Lymphocytes 5.9 % (21.0-51.0); %Monocytes 10.1 % (0.0-10.0); %Neutrophils 81.5 % (42.0-75.0); Hematocrit 27.8 % (42.0-52.0); Hemoglobin 8.8 g/dL (14.0-18.0); Mean Corpuscular HGB CONC 31.7 g/dL (32.0-36.0); Mean Corpuscular Volume 75.7 fl (78.0-98.0); Mean Platelet Volume 11.9 fL (7.4-10.4); Platelet Count 383 10x3/uL (130-400); RBC Distribution Width 21.2 % (11.5-14.5); Red Blood Cell (RBC) Count 3.67 mill/uL (4.70-6.10); White Blood Cell (WBC) Count 19.4 10x3/uL (4.8-10.8)
[2022-09-02 06:40] LABS: ALT (SGPT) 107 U/L (8-55); AST (SGOT) 115 U/L (5-34); Albumin 2.4 g/dL (3.5-5.0); Alkaline Phosphatase 205 U/L (40-110); Anion Gap 13 mmol/L (10-20); BUN (Urea Nitrogen) 12 mg/dL (8.4-25.7); Bilirubin, Total 1.6 mg/dL (0.2-1.2); Calc. Creatinine Clearance 144 mL/min (70-130); Calcium 8.6 mg/dL (7.8-10.44); Carbon Dioxide 26 mmol/L (22-29); Chloride 99 mmol/L (98-107); Estimated GFR 106; Globulin 3.5 g/dL (2.4-3.5); Glucose 90 mg/dL (70-105); Potassium 3.6 mmol/L (3.5-5.1); Protein, Total 5.9 g/dL (6.0-8.3); Sodium 134 mmol/L (136-145)
[2022-09-02] MEDS: Spironolactone 25 MG TAB PO SCH (08:07)
[2022-09-02] MEDS: Aspirin 81 mg Enteric Coated Tablet PO SCH (08:07)
[2022-09-02] MEDS: Apixaban 5 MG TAB PO SCH ×2 (08:07→21:00)
[2022-09-02] MEDS: Famotidine 20 MG TAB PO SCH ×2 (08:07→21:00)
[2022-09-02] MEDS: Saccharomyces boulardii 250 MG CAP PO SCH (08:07)
[2022-09-02] MEDS: Empagliflozin 10 MG TAB PO SCH (08:08)
[2022-09-02] MEDS: Carvedilol 6.25 MG TAB PO SCH ×3 (08:08→16:49)
[2022-09-02] MEDS: oxyCODONE 5 MG TAB PO PRN (08:11)
[2022-09-02] MEDS: Senokot S 8.6-50 MG TAB PO SCH ×2 (08:11→21:15)
[2022-09-02] MEDS: hydrALAZINE 25 MG TAB PO SCH (08:14)
[2022-09-02] MEDS: Furosemide 20 MG TAB PO SCH (08:15)
[2022-09-02] MEDS: Sacubitril 49 MG/Valsartan 51 MG TABLET PO SCH (08:15)
[2022-09-02] MEDS: Atorvastatin Calcium 10 MG TAB PO SCH (20:59)
[2022-09-02] MEDS: Gabapentin 300 MG CAP PO SCH (20:59)
[2022-09-02] MEDS: Bisacodyl 10 MG SUPP PR SCH (21:00)
[2022-09-02] MEDS: Acetaminophen 325 MG TAB PO PRN (22:51)
[2022-09-03] MEDS: Vancomycin 1 GM in Premix Bag 1 BAG IVPB SCH ×3 (04:24→20:24)
[2022-09-03] MEDS: oxyCODONE 5 MG TAB PO PRN ×3 (05:29→20:25)
[2022-09-03 05:45] LABS: #Eosinphils 0.1 thou/uL (0.0-0.7); #Monocytes 1.9 thou/uL (0.11-0.59); #Neutrophils 15.8 thou/uL (1.40-6.50); %Basophils 0.2 % (0.0-1.0); %Eosinophils 0.3 % (0.0-10.0); %Lymphocytes 6.5 % (21.0-51.0); %Monocytes 9.9 % (0.0-10.0); Hematocrit 26.8 % (42.0-52.0); Hemoglobin 8.5 g/dL (14.0-18.0); Mean Corpuscular HGB CONC 31.7 g/dL (32.0-36.0); Mean Corpuscular Hemoglobin 23.9 pg (27.0-31.0); Mean Corpuscular Volume 75.5 fl (78.0-98.0); Mean Platelet Volume 12.1 fL (7.4-10.4); Platelet Count 401 10x3/uL (130-400); RBC Distribution Width 21.5 % (11.5-14.5); Red Blood Cell (RBC) Count 3.55 mill/uL (4.70-6.10); White Blood Cell (WBC) Count 19.5 10x3/uL (4.8-10.8)
[2022-09-03 06:17] LABS: ALT (SGPT) 91 U/L (8-55); AST (SGOT) 98 U/L (5-34); Albumin 2.6 g/dL (3.5-5.0); Alkaline Phosphatase 202 U/L (40-110); Anion Gap 12 mmol/L (10-20); BUN (Urea Nitrogen) 14 mg/dL (8.4-25.7); Bilirubin, Total 1.3 mg/dL (0.2-1.2); Calc. Creatinine Clearance 142 mL/min (70-130); Calcium 8.6 mg/dL (7.8-10.44); Carbon Dioxide 28 mmol/L (22-29); Chloride 99 mmol/L (98-107); Estimated GFR 106; Globulin 3.1 g/dL (2.4-3.5); Glucose 122 mg/dL (70-105); Phosphorus 3.7 mg/dL (2.3-4.7); Protein, Total 5.7 g/dL (6.0-8.3); Sodium 135 mmol/L (136-145)
[2022-09-03] MEDS ORDERED: Magnesium 2 GM/50 ML(in water) 2 GM in Premix Bag 1 BAG IVPB SCH (08:00)
[2022-09-03] MEDS: Famotidine 20 MG TAB PO SCH ×2 (08:49→20:25)
[2022-09-03] MEDS: Carvedilol 6.25 MG TAB PO SCH ×2 (08:49→18:09)
[2022-09-03] MEDS: Aspirin 81 mg Enteric Coated Tablet PO SCH (08:49)
[2022-09-03] MEDS: Apixaban 5 MG TAB PO SCH ×2 (08:49→20:25)
[2022-09-03] MEDS: Empagliflozin 10 MG TAB PO SCH (08:50)
[2022-09-03] MEDS: Saccharomyces boulardii 250 MG CAP PO SCH (08:51)
[2022-09-03] MEDS: Senokot S 8.6-50 MG TAB PO SCH ×2 (08:51→20:26)
[2022-09-03] MEDS: Polyethylene Glycol 3350 17 GM Packet PO SCH (08:51)
[2022-09-03] MEDS: Acetaminophen 325 MG TAB PO PRN (08:52)
[2022-09-03] MEDS: Furosemide 20 MG TAB PO SCH (10:24)
[2022-09-03] MEDS: HumaLOG 300 UNITS/3 ML VIAL SC PRN (18:48)
[2022-09-03] MEDS: Gabapentin 300 MG CAP PO SCH (20:24)
[2022-09-03] MEDS: Atorvastatin Calcium 10 MG TAB PO SCH (20:25)
[2022-09-03] MEDS: Sacubitril 49 MG/Valsartan 51 MG TABLET PO SCH (20:25)
[2022-09-03] MEDS: Bisacodyl 10 MG SUPP PR SCH (20:26)
[2022-09-03] MEDS: Ondansetron ODT 4 MG TAB PO PRN (21:54)
[2022-09-04] MEDS: oxyCODONE 5 MG TAB PO PRN ×4 (04:42→18:23)
[2022-09-04] MEDS: Vancomycin 1 GM in Premix Bag 1 BAG IVPB SCH ×3 (04:43→20:42)
[2022-09-04 05:30] LABS: #Basophils 0.1 thou/uL (0.0-0.2); #Eosinphils 0.1 thou/uL (0.0-0.7); #Neutrophils 15.6 thou/uL (1.40-6.50); %Basophils 0.3 % (0.0-1.0); %Eosinophils 0.5 % (0.0-10.0); %Lymphocytes 6.6 % (21.0-51.0); %Monocytes 10.2 % (0.0-10.0); %Neutrophils 80.7 % (42.0-75.0); Hematocrit 34.6 % (42.0-52.0); Hemoglobin 9.8 g/dL (14.0-18.0); Mean Corpuscular HGB CONC 28.3 g/dL (32.0-36.0); Mean Corpuscular Hemoglobin 23.6 pg (27.0-31.0); Platelet Count 378 10x3/uL (130-400); RBC Distribution Width 23.4 % (11.5-14.5); Red Blood Cell (RBC) Count 4.16 mill/uL (4.70-6.10); White Blood Cell (WBC) Count 19.3 10x3/uL (4.8-10.8)
[2022-09-04 05:47] LABS: Mean Corpuscular Volume 83.2 fl (78.0-98.0)
[2022-09-04 06:02] LABS: ALT (SGPT) 70 U/L (8-55); AST (SGOT) 61 U/L (5-34); Albumin 2.7 g/dL (3.5-5.0); Alkaline Phosphatase 187 U/L (40-110); Anion Gap 16 mmol/L (10-20); BUN (Urea Nitrogen) 11 mg/dL (8.4-25.7); Bilirubin, Total 0.9 mg/dL (0.2-1.2); Calc. Creatinine Clearance 155 mL/min (70-130); Calcium 8.8 mg/dL (7.8-10.44); Carbon Dioxide 22 mmol/L (22-29); Chloride 99 mmol/L (98-107); Estimated GFR 109; Globulin 4.2 g/dL (2.4-3.5); Glucose 93 mg/dL (70-105); Potassium 4.4 mmol/L (3.5-5.1); Protein, Total 6.9 g/dL (6.0-8.3); Sodium 133 mmol/L (136-145)
[2022-09-04] MEDS: Carvedilol 6.25 MG TAB PO SCH ×2 (09:11→18:23)
[2022-09-04] MEDS: Apixaban 5 MG TAB PO SCH (09:11)
[2022-09-04] MEDS: Empagliflozin 10 MG TAB PO SCH (09:12)
[2022-09-04] MEDS: Saccharomyces boulardii 250 MG CAP PO SCH (09:12)
[2022-09-04] MEDS: Sacubitril 49 MG/Valsartan 51 MG TABLET PO SCH ×2 (09:12→20:45)
[2022-09-04] MEDS: Aspirin 81 mg Enteric Coated Tablet PO SCH (09:12)
[2022-09-04] MEDS: Famotidine 20 MG TAB PO SCH ×2 (09:12→20:47)
[2022-09-04] MEDS: Senokot S 8.6-50 MG TAB PO SCH ×2 (09:20→20:43)
[2022-09-04] MEDS: Polyethylene Glycol 3350 17 GM Packet PO SCH (09:20)
[2022-09-04] MEDS: Furosemide 20 MG TAB PO SCH (13:06)
[2022-09-04] MEDS: HumaLOG 300 UNITS/3 ML VIAL SC PRN (18:50)
[2022-09-04] MEDS: Gabapentin 300 MG CAP PO SCH (20:43)
[2022-09-04] MEDS: Atorvastatin Calcium 10 MG TAB PO SCH (20:44)
[2022-09-04] MEDS: Acetaminophen 325 MG TAB PO PRN (20:53)
[2022-09-04] MEDS: Bisacodyl 10 MG SUPP PR SCH (21:05)
[2022-09-04] MEDS ORDERED: Ceftaroline 600 MG in Sodium Chloride 0.9% 100 ML IVPB SCH (22:00)
[2022-09-04] MEDS: Ceftaroline 600 MG in Sodium Chloride 0.9% 100 ML IVPB SCH (23:30)
[2022-09-05] MEDS: Vancomycin 1 GM in Premix Bag 1 BAG IVPB SCH ×3 (05:44→21:06)
[2022-09-05] MEDS: oxyCODONE 5 MG TAB PO PRN ×2 (06:18→21:36)
[2022-09-05] MEDS: Ceftaroline 600 MG in Sodium Chloride 0.9% 100 ML IVPB SCH ×3 (06:58→22:58)
[2022-09-05] MEDS ORDERED: Magnevist 469MG/ML 20 ML VIAL ONE (09:20)
[2022-09-05] MEDS: Empagliflozin 10 MG TAB PO SCH (09:28)
[2022-09-05] MEDS: Famotidine 20 MG TAB PO SCH ×2 (09:28→21:05)
[2022-09-05] MEDS: Aspirin 81 mg Enteric Coated Tablet PO SCH (09:28)
[2022-09-05] MEDS: Polyethylene Glycol 3350 17 GM Packet PO SCH (09:29)
[2022-09-05] MEDS: Furosemide 20 MG TAB PO SCH (09:29)
[2022-09-05] MEDS: Senokot S 8.6-50 MG TAB PO SCH ×2 (09:29→21:06)
[2022-09-05] MEDS: Saccharomyces boulardii 250 MG CAP PO SCH (09:29)
[2022-09-05] MEDS: Carvedilol 6.25 MG TAB PO SCH ×2 (09:47→16:50)
[2022-09-05] MEDS: Sacubitril 49 MG/Valsartan 51 MG TABLET PO SCH ×2 (09:47→21:06)
[2022-09-05 09:59] LABS: Hematocrit 29.5 % (42.0-52.0); Hemoglobin 9.2 g/dL (14.0-18.0); Mean Corpuscular HGB CONC 31.2 g/dL (32.0-36.0); Mean Platelet Volume 11.6 fL (7.4-10.4); Platelet Count 490 10x3/uL (130-400); RBC Distribution Width 22.1 % (11.5-14.5); Red Blood Cell (RBC) Count 3.83 mill/uL (4.70-6.10); White Blood Cell (WBC) Count 21.4 10x3/uL (4.8-10.8)
[2022-09-05 10:03] LABS: Anion Gap 14 mmol/L (10-20); BUN (Urea Nitrogen) 10 mg/dL (8.4-25.7); Calc. Creatinine Clearance 133 mL/min (70-130); Calcium 8.7 mg/dL (7.8-10.44); Carbon Dioxide 22 mmol/L (22-29); Chloride 103 mmol/L (98-107); Estimated GFR 104; Glucose 128 mg/dL (70-105); Potassium 4.9 mmol/L (3.5-5.1); Sodium 134 mmol/L (136-145)
[2022-09-05 10:10] LABS: Delete Auto Diff?? YES; Manual Diff?? YES
[2022-09-05 10:32] LABS: Anisocytosis MODERATE=16-30 cells HPF (0-5); Band 12 % (5-11); Burr Cells SLIGHT = 2-5 cells HPF (0-1); CellaVision Operator ID LAB.GE; Hypochromia SLIGHT = 6-15 cells HPF (0-5); Large Platelets 2.9 % (0-5); Metamyelocyte 1 % (0-0); Monocytes 4 % (0-10); Neutrophil 81 % (42-75); Ovalocytes SLIGHT = 2-5 cells HPF (0-1); Platelet Adequacy Comment Platelets Increased; Polychromasia MODERATE = 3-4 cells HPF (0-2); Reactive Lymphocytes 1 % (0-10); Total Cell Count 102
[2022-09-05] MEDS ORDERED: Bupivacaine HCl 0.5%/Epinephrine 1:200,000/PF 30 ml Vial ONE (11:42)
[2022-09-05] MEDS ORDERED: Norepinephrine 4 MG/4 ML VIAL ONE (11:53)
[2022-09-05] MEDS ORDERED: fentaNYL PF 100 MCG/2 ML SYRINGE ONE ×2 (11:53→13:38)
[2022-09-05] MEDS ORDERED: Vancomycin 1 GM/200 ML (FROZEN) BAG ONE (12:11)
[2022-09-05] MEDS ORDERED: PROPOFOL 200 MG/20 ML VIAL ONE (12:27)
[2022-09-05] MEDS ORDERED: PHENYLEPHRINE-NS 100 MCG/ML 10 ML SYRINGE ONE (12:27)
[2022-09-05] MEDS ORDERED: Rocuronium Bromide 10 MG/ML (10ML VIAL) ONE (12:27)
[2022-09-05] MEDS ORDERED: Ondansetron PF 4 MG/2 ML Vial ONE (12:27)
[2022-09-05] MEDS ORDERED: SUGAMMADEX SODIUM 200 MG/2 ML VIAL ONE ×2 (13:00)
[2022-09-05] MEDS ORDERED: Promethazine HCl 25 MG/ML VIAL IM PRN (13:22)
[2022-09-05] MEDS ORDERED: Ondansetron HCl/PF 4 MG/2 ML Vial IVP PRN (13:22)
[2022-09-05] MEDS: Gabapentin 300 MG CAP PO SCH (21:05)
[2022-09-05] MEDS: Atorvastatin Calcium 10 MG TAB PO SCH (21:05)
[2022-09-05] MEDS: Bisacodyl 10 MG SUPP PR SCH ×2 (21:06→22:26)
[2022-09-05] MEDS: Acetaminophen 325 MG TAB PO PRN (23:07)
[2022-09-06] MEDS: Ceftaroline 600 MG in Sodium Chloride 0.9% 100 ML IVPB SCH ×4 (00:28→22:56)
[2022-09-06] MEDS: oxyCODONE 5 MG TAB PO PRN ×2 (01:30→09:25)
[2022-09-06 05:27] LABS: #Basophils 0.1 thou/uL (0.0-0.2); #Eosinphils 0.1 thou/uL (0.0-0.7); #Monocytes 1.2 thou/uL (0.11-0.59); #Neutrophils 11.9 thou/uL (1.40-6.50); %Basophils 0.3 % (0.0-1.0); %Eosinophils 0.5 % (0.0-10.0); %Lymphocytes 7.3 % (21.0-51.0); %Monocytes 8.2 % (0.0-10.0); %Neutrophils 82.1 % (42.0-75.0); Hemoglobin 8.2 g/dL (14.0-18.0); Mean Corpuscular HGB CONC 30.4 g/dL (32.0-36.0); Mean Corpuscular Hemoglobin 23.8 pg (27.0-31.0); Mean Corpuscular Volume 78.3 fl (78.0-98.0); Mean Platelet Volume 11.4 fL (7.4-10.4); Platelet Count 549 10x3/uL (130-400); RBC Distribution Width 22.2 % (11.5-14.5); Red Blood Cell (RBC) Count 3.45 mill/uL (4.70-6.10); White Blood Cell (WBC) Count 14.6 10x3/uL (4.8-10.8)
[2022-09-06 05:49] LABS: Anion Gap 12 mmol/L (10-20); BUN (Urea Nitrogen) 8 mg/dL (8.4-25.7); Calc. Creatinine Clearance 142 mL/min (70-130); Calcium 8.7 mg/dL (7.8-10.44); Carbon Dioxide 26 mmol/L (22-29); Chloride 103 mmol/L (98-107); Estimated GFR 106; Glucose 109 mg/dL (70-105); Potassium 3.9 mmol/L (3.5-5.1); Sodium 137 mmol/L (136-145)
[2022-09-06] MEDS: Vancomycin 1 GM in Premix Bag 1 BAG IVPB SCH ×3 (05:59→21:03)
[2022-09-06] MEDS: Acetaminophen 325 MG TAB PO PRN ×3 (05:59→21:02)
[2022-09-06] MEDS: hydrALAZINE 25 MG TAB PO SCH ×3 (08:00→16:35)
[2022-09-06] MEDS: Furosemide 20 MG TAB PO SCH (09:13)
[2022-09-06] MEDS: Sacubitril 49 MG/Valsartan 51 MG TABLET PO SCH ×2 (09:13→21:02)
[2022-09-06] MEDS: Famotidine 20 MG TAB PO SCH ×2 (09:13→21:01)
[2022-09-06] MEDS: Senokot S 8.6-50 MG TAB PO SCH ×2 (09:13→21:02)
[2022-09-06] MEDS: Polyethylene Glycol 3350 17 GM Packet PO SCH (09:13)
[2022-09-06] MEDS: Empagliflozin 10 MG TAB PO SCH (09:14)
[2022-09-06] MEDS: Carvedilol 6.25 MG TAB PO SCH ×2 (09:14→16:32)
[2022-09-06] MEDS: Aspirin 81 mg Enteric Coated Tablet PO SCH (09:14)
[2022-09-06] MEDS: Saccharomyces boulardii 250 MG CAP PO SCH (09:14)
[2022-09-06] MEDS: Apixaban 5 MG TAB PO SCH ×2 (09:20→21:01)
[2022-09-06] MEDS: HumaLOG 300 UNITS/3 ML VIAL SC PRN ×2 (11:19→17:28)
[2022-09-06] MEDS: Atorvastatin Calcium 10 MG TAB PO SCH (21:01)
[2022-09-06] MEDS: Gabapentin 300 MG CAP PO SCH (21:01)
[2022-09-06] MEDS: Bisacodyl 10 MG SUPP PR SCH (21:01)
[2022-09-07] MEDS: Vancomycin 1 GM in Premix Bag 1 BAG IVPB SCH ×3 (06:19→21:07)
[2022-09-07] MEDS: oxyCODONE 5 MG TAB PO PRN ×2 (06:20→21:10)
[2022-09-07] MEDS: HumaLOG 300 UNITS/3 ML VIAL SC PRN ×2 (06:21→18:03)
[2022-09-07] MEDS: Ceftaroline 600 MG in Sodium Chloride 0.9% 100 ML IVPB SCH ×3 (08:00→22:38)
[2022-09-07] MEDS: Polyethylene Glycol 3350 17 GM Packet PO SCH (08:00)
[2022-09-07] MEDS: Saccharomyces boulardii 250 MG CAP PO SCH (08:01)
[2022-09-07] MEDS: Aspirin 81 mg Enteric Coated Tablet PO SCH (08:01)
[2022-09-07] MEDS: Acetaminophen 325 MG TAB PO PRN (08:01)
[2022-09-07] MEDS: Sacubitril 49 MG/Valsartan 51 MG TABLET PO SCH ×2 (08:01→21:10)
[2022-09-07] MEDS: Senokot S 8.6-50 MG TAB PO SCH ×2 (08:01→21:06)
[2022-09-07] MEDS: Apixaban 5 MG TAB PO SCH ×2 (08:01→21:06)
[2022-09-07] MEDS: Furosemide 20 MG TAB PO SCH (08:01)
[2022-09-07] MEDS: Empagliflozin 10 MG TAB PO SCH (08:02)
[2022-09-07] MEDS: Famotidine 20 MG TAB PO SCH ×2 (08:02→21:07)
[2022-09-07] MEDS: Carvedilol 6.25 MG TAB PO SCH ×2 (08:03→16:53)
[2022-09-07] MEDS: hydrALAZINE 25 MG TAB PO SCH ×2 (08:04→16:56)
[2022-09-07] MEDS: Gabapentin 300 MG CAP PO SCH (21:06)
[2022-09-07] MEDS: Atorvastatin Calcium 10 MG TAB PO SCH (21:06)
[2022-09-07] MEDS: Bisacodyl 10 MG SUPP PR SCH (21:11)
[2022-09-08 03:42] LABS: #Eosinphils 0.1 thou/uL (0.0-0.7); #Monocytes 1.2 thou/uL (0.11-0.59); #Neutrophils 12.7 thou/uL (1.40-6.50); %Basophils 0.3 % (0.0-1.0); %Eosinophils 0.5 % (0.0-10.0); %Monocytes 7.8 % (0.0-10.0); %Neutrophils 84.5 % (42.0-75.0); Hematocrit 25.9 % (42.0-52.0); Hemoglobin 7.9 g/dL (14.0-18.0); Mean Corpuscular HGB CONC 30.5 g/dL (32.0-36.0); Mean Corpuscular Hemoglobin 24.3 pg (27.0-31.0); Mean Corpuscular Volume 79.7 fl (78.0-98.0); Mean Platelet Volume 10.3 fL (7.4-10.4); Platelet Count 617 10x3/uL (130-400); RBC Distribution Width 22.1 % (11.5-14.5); Red Blood Cell (RBC) Count 3.25 mill/uL (4.70-6.10); White Blood Cell (WBC) Count 15.1 10x3/uL (4.8-10.8)
[2022-09-08 04:07] LABS: Anion Gap 13 mmol/L (10-20); BUN (Urea Nitrogen) 12 mg/dL (8.4-25.7); Calc. Creatinine Clearance 131 mL/min (70-130); Calcium 8.9 mg/dL (7.8-10.44); Carbon Dioxide 26 mmol/L (22-29); Chloride 101 mmol/L (98-107); Estimated GFR 103; Glucose 116 mg/dL (70-105); Potassium 3.9 mmol/L (3.5-5.1); Sodium 136 mmol/L (136-145)
[2022-09-08] MEDS: Vancomycin 1 GM in Premix Bag 1 BAG IVPB SCH ×2 (05:02→12:13)
[2022-09-08] MEDS: Ceftaroline 600 MG in Sodium Chloride 0.9% 100 ML IVPB SCH ×3 (06:11→22:33)
[2022-09-08] MEDS: Apixaban 5 MG TAB PO SCH ×2 (08:46→21:25)
[2022-09-08] MEDS: hydrALAZINE 25 MG TAB PO SCH ×2 (08:46→17:00)
[2022-09-08] MEDS: Carvedilol 6.25 MG TAB PO SCH ×2 (08:46→17:00)
[2022-09-08] MEDS: Furosemide 20 MG TAB PO SCH (08:47)
[2022-09-08] MEDS: Sacubitril 49 MG/Valsartan 51 MG TABLET PO SCH ×2 (08:47→21:26)
[2022-09-08] MEDS: Aspirin 81 mg Enteric Coated Tablet PO SCH (08:47)
[2022-09-08] MEDS: Empagliflozin 10 MG TAB PO SCH (08:47)
[2022-09-08] MEDS: Senokot S 8.6-50 MG TAB PO SCH ×2 (08:47→21:26)
[2022-09-08] MEDS: Famotidine 20 MG TAB PO SCH ×2 (08:47→21:25)
[2022-09-08] MEDS: Saccharomyces boulardii 250 MG CAP PO SCH (08:47)
[2022-09-08] MEDS: Polyethylene Glycol 3350 17 GM Packet PO SCH (08:47)
[2022-09-08] MEDS: oxyCODONE 5 MG TAB PO PRN ×2 (10:46→15:30)
[2022-09-08 21:08] LABS: Vancomycin, Trough 23.1 ug/mL
[2022-09-08] MEDS: Atorvastatin Calcium 10 MG TAB PO SCH (21:24)
[2022-09-08] MEDS: Gabapentin 300 MG CAP PO SCH (21:25)
[2022-09-08] MEDS: Bisacodyl 10 MG SUPP PR SCH (22:31)
[2022-09-09] MEDS: Vancomycin 1 GM in Premix Bag 1 BAG IVPB SCH ×4 (00:49→16:18)
[2022-09-09 05:14] LABS: #Basophils 0.1 thou/uL (0.0-0.2); #Eosinphils 0.1 thou/uL (0.0-0.7); #Monocytes 1.1 thou/uL (0.11-0.59); %Basophils 0.6 % (0.0-1.0); %Eosinophils 0.9 % (0.0-10.0); %Lymphocytes 9.3 % (21.0-51.0); %Monocytes 11.8 % (0.0-10.0); %Neutrophils 76.4 % (42.0-75.0); Hematocrit 29.2 % (42.0-52.0); Hemoglobin 8.9 g/dL (14.0-18.0); Mean Corpuscular HGB CONC 30.5 g/dL (32.0-36.0); Mean Corpuscular Hemoglobin 23.9 pg (27.0-31.0); Mean Corpuscular Volume 78.5 fl (78.0-98.0); Platelet Count 648 10x3/uL (130-400); RBC Distribution Width 22.6 % (11.5-14.5); Red Blood Cell (RBC) Count 3.72 mill/uL (4.70-6.10); White Blood Cell (WBC) Count 9.1 10x3/uL (4.8-10.8)
[2022-09-09 05:42] LABS: Anion Gap 10 mmol/L (10-20); BUN (Urea Nitrogen) 12 mg/dL (8.4-25.7); Calc. Creatinine Clearance 126 mL/min (70-130); Calcium 8.8 mg/dL (7.8-10.44); Carbon Dioxide 27 mmol/L (22-29); Chloride 100 mmol/L (98-107); Estimated GFR 102; Glucose 102 mg/dL (70-105); Iron 16 ug/dL (65-175); Iron Binding Capacity, Total 174 mcg/dL (261-462); Potassium 3.7 mmol/L (3.5-5.1); Sodium 133 mmol/L (136-145)
[2022-09-09 06:12] LABS: Ferritin 314.75 ng/mL (22-322)
[2022-09-09] MEDS: Acetaminophen 325 MG TAB PO PRN ×2 (06:32→15:29)
[2022-09-09] MEDS: Ceftaroline 600 MG in Sodium Chloride 0.9% 100 ML IVPB SCH ×3 (06:32→22:21)
[2022-09-09] MEDS: hydrALAZINE 25 MG TAB PO SCH ×2 (09:20→16:19)
[2022-09-09] MEDS: Apixaban 5 MG TAB PO SCH ×2 (09:20→20:59)
[2022-09-09] MEDS: Aspirin 81 mg Enteric Coated Tablet PO SCH (09:20)
[2022-09-09] MEDS: Carvedilol 6.25 MG TAB PO SCH ×2 (09:20→16:19)
[2022-09-09] MEDS: Famotidine 20 MG TAB PO SCH ×2 (09:21→20:59)
[2022-09-09] MEDS: Empagliflozin 10 MG TAB PO SCH (09:21)
[2022-09-09] MEDS: Furosemide 20 MG TAB PO SCH (09:21)
[2022-09-09] MEDS: Polyethylene Glycol 3350 17 GM Packet PO SCH (09:21)
[2022-09-09] MEDS: Saccharomyces boulardii 250 MG CAP PO SCH (09:22)
[2022-09-09] MEDS: Sacubitril 49 MG/Valsartan 51 MG TABLET PO SCH ×2 (09:22→20:59)
[2022-09-09] MEDS: Senokot S 8.6-50 MG TAB PO SCH ×2 (09:22→21:00)
[2022-09-09] MEDS: oxyCODONE 5 MG TAB PO PRN (19:49)
[2022-09-09] MEDS: Gabapentin 300 MG CAP PO SCH (20:58)
[2022-09-09] MEDS: Atorvastatin Calcium 10 MG TAB PO SCH (20:59)
[2022-09-09] MEDS: Bisacodyl 10 MG SUPP PR SCH (21:00)
[2022-09-10 00:22] LABS: Vancomycin, Trough 20.7 ug/mL
[2022-09-10] MEDS: Vancomycin 1 GM in Premix Bag 1 BAG IVPB SCH ×3 (02:29→17:18)
[2022-09-10] MEDS: Ceftaroline 600 MG in Sodium Chloride 0.9% 100 ML IVPB SCH ×3 (05:30→22:23)
[2022-09-10] MEDS: Apixaban 5 MG TAB PO SCH ×2 (09:23→22:22)
[2022-09-10] MEDS: Famotidine 20 MG TAB PO SCH ×2 (09:24→22:23)
[2022-09-10] MEDS: hydrALAZINE 25 MG TAB PO SCH (09:24)
[2022-09-10] MEDS: Aspirin 81 mg Enteric Coated Tablet PO SCH (09:24)
[2022-09-10] MEDS: Saccharomyces boulardii 250 MG CAP PO SCH (09:24)
[2022-09-10] MEDS: Sacubitril 49 MG/Valsartan 51 MG TABLET PO SCH (09:25)
[2022-09-10] MEDS: Empagliflozin 10 MG TAB PO SCH (09:25)
[2022-09-10] MEDS: Furosemide 20 MG TAB PO SCH ×2 (09:26→09:45)
[2022-09-10] MEDS: Carvedilol 6.25 MG TAB PO SCH ×2 (09:26→09:43)
[2022-09-10] MEDS: Senokot S 8.6-50 MG TAB PO SCH (09:32)
[2022-09-10] MEDS: Polyethylene Glycol 3350 17 GM Packet PO SCH (09:32)
[2022-09-10] MEDS: oxyCODONE 5 MG TAB PO PRN (09:53)
[2022-09-10] MEDS: HumaLOG 300 UNITS/3 ML VIAL SC PRN (11:25)
[2022-09-10] MEDS ORDERED: Senokot S 8.6-50 MG TAB PO PRN (11:26)
[2022-09-10] MEDS: Carvedilol 3.125 MG TAB PO SCH (17:18)
[2022-09-10] MEDS: traMADol HCl 50 MG TAB PO PRN (19:00)
[2022-09-10] MEDS: Acetaminophen 325 MG TAB PO PRN (22:19)
[2022-09-10] MEDS: Sacubitril 24MG/Valsartan 26 MG TAB PO SCH (22:20)
[2022-09-10] MEDS: Gabapentin 300 MG CAP PO SCH (22:20)
[2022-09-10] MEDS: Atorvastatin Calcium 10 MG TAB PO SCH (22:21)
[2022-09-10] MEDS: hydrALAZINE 10 MG TAB PO SCH (22:21)
[2022-09-11] MEDS: Bisacodyl 10 MG SUPP PR SCH ×2 (00:24→21:08)
[2022-09-11] MEDS ORDERED: Vancomycin 1 GM in Premix Bag 1 BAG IVPB SCH (02:00)
[2022-09-11 04:25] LABS: #Eosinphils 0.1 thou/uL (0.0-0.7); #Neutrophils 4.2 thou/uL (1.40-6.50); %Basophils 0.6 % (0.0-1.0); %Eosinophils 1.7 % (0.0-10.0); %Lymphocytes 17.7 % (21.0-51.0); %Monocytes 15.2 % (0.0-10.0); %Neutrophils 64.2 % (42.0-75.0); Hematocrit 29.5 % (42.0-52.0); Hemoglobin 8.8 g/dL (14.0-18.0); Mean Corpuscular HGB CONC 29.8 g/dL (32.0-36.0); Mean Corpuscular Hemoglobin 24.2 pg (27.0-31.0); Mean Corpuscular Volume 81.3 fl (78.0-98.0); Mean Platelet Volume 10.2 fL (7.4-10.4); Platelet Count 522 10x3/uL (130-400); RBC Distribution Width 21.8 % (11.5-14.5); Red Blood Cell (RBC) Count 3.63 mill/uL (4.70-6.10); White Blood Cell (WBC) Count 6.6 10x3/uL (4.8-10.8)
[2022-09-11] MEDS: Vancomycin 1.5 GRAM/300 ML BAG 1.5 GM in Premix Bag 1 BAG IVPB SCH ×2 (04:46→16:50)
[2022-09-11 04:55] LABS: Anion Gap 12 mmol/L (10-20); BUN (Urea Nitrogen) 14 mg/dL (8.4-25.7); Calc. Creatinine Clearance 130 mL/min (70-130); Calcium 8.6 mg/dL (7.8-10.44); Carbon Dioxide 24 mmol/L (22-29); Chloride 102 mmol/L (98-107); Estimated GFR 103; Glucose 91 mg/dL (70-105); Potassium 3.8 mmol/L (3.5-5.1); Sodium 134 mmol/L (136-145)
[2022-09-11] MEDS: Ceftaroline 600 MG in Sodium Chloride 0.9% 100 ML IVPB SCH ×2 (06:23→19:45)
[2022-09-11] MEDS: Apixaban 5 MG TAB PO SCH ×2 (10:46→21:08)
[2022-09-11] MEDS: Aspirin 81 mg Enteric Coated Tablet PO SCH (10:46)
[2022-09-11] MEDS: Empagliflozin 10 MG TAB PO SCH (10:46)
[2022-09-11] MEDS: Polyethylene Glycol 3350 17 GM Packet PO SCH (10:46)
[2022-09-11] MEDS: Saccharomyces boulardii 250 MG CAP PO SCH (10:46)
[2022-09-11] MEDS: Famotidine 20 MG TAB PO SCH ×2 (10:47→21:07)
[2022-09-11] MEDS: Carvedilol 3.125 MG TAB PO SCH ×2 (10:48→17:00)
[2022-09-11] MEDS: Furosemide 20 MG TAB PO SCH (10:48)
[2022-09-11] MEDS: hydrALAZINE 10 MG TAB PO SCH (10:48)
[2022-09-11] MEDS: Sacubitril 24MG/Valsartan 26 MG TAB PO SCH ×2 (10:49→21:07)
[2022-09-11] MEDS: traMADol HCl 50 MG TAB PO PRN (10:55)
[2022-09-11] MEDS: HYDROcodone/Acetaminophen 7.5/325 mg Tablet PO PRN (17:00)
[2022-09-11] MEDS: Gabapentin 300 MG CAP PO SCH (21:07)
[2022-09-11] MEDS: Atorvastatin Calcium 10 MG TAB PO SCH (21:08)
[2022-09-12] MEDS: HYDROcodone/Acetaminophen 7.5/325 mg Tablet PO PRN ×3 (00:23→23:12)
[2022-09-12] MEDS: Ceftaroline 600 MG in Sodium Chloride 0.9% 100 ML IVPB SCH ×3 (03:04→20:54)
[2022-09-12] MEDS: Vancomycin 1.5 GRAM/300 ML BAG 1.5 GM in Premix Bag 1 BAG IVPB SCH (04:03)
[2022-09-12] MEDS: Furosemide 20 MG TAB PO SCH (09:28)
[2022-09-12] MEDS: Saccharomyces boulardii 250 MG CAP PO SCH (09:30)
[2022-09-12] MEDS: Sacubitril 24MG/Valsartan 26 MG TAB PO SCH ×2 (09:30→20:54)
[2022-09-12] MEDS: Polyethylene Glycol 3350 17 GM Packet PO SCH (09:30)
[2022-09-12] MEDS: Carvedilol 3.125 MG TAB PO SCH ×2 (09:30→18:05)
[2022-09-12] MEDS: Apixaban 5 MG TAB PO SCH ×2 (09:30→20:54)
[2022-09-12] MEDS: Famotidine 20 MG TAB PO SCH ×2 (09:30→20:50)
[2022-09-12] MEDS: Aspirin 81 mg Enteric Coated Tablet PO SCH (09:30)
[2022-09-12] MEDS: Empagliflozin 10 MG TAB PO SCH (09:30)
[2022-09-12] MEDS: Acetaminophen 325 MG TAB PO PRN ×2 (09:46→18:16)
[2022-09-12] MEDS: HumaLOG 300 UNITS/3 ML VIAL SC PRN (12:22)
[2022-09-12 15:28] LABS: Vancomycin, Trough 23.8 ug/mL
[2022-09-12] MEDS: DAPTOMYCIN IVPB SCH (18:30)
[2022-09-12] MEDS: SODIUM CHLORIDE 0.9% IVPB SCH (18:30)
[2022-09-12] MEDS: Gabapentin 300 MG CAP PO SCH (20:54)
[2022-09-12] MEDS: Bisacodyl 10 MG SUPP PR SCH (21:00)
[2022-09-13] MEDS: Ceftaroline 600 MG in Sodium Chloride 0.9% 100 ML IVPB SCH ×3 (03:59→20:45)
[2022-09-13 04:31] LABS: #Basophils 0.1 thou/uL (0.0-0.2); #Eosinphils 0.1 thou/uL (0.0-0.7); #Monocytes 0.7 thou/uL (0.11-0.59); #Neutrophils 6.2 thou/uL (1.40-6.50); %Basophils 0.7 % (0.0-1.0); %Eosinophils 1.6 % (0.0-10.0); %Lymphocytes 12.8 % (21.0-51.0); %Monocytes 8.3 % (0.0-10.0); %Neutrophils 76.4 % (42.0-75.0); Hematocrit 30.8 % (42.0-52.0); Hemoglobin 9.2 g/dL (14.0-18.0); Mean Corpuscular HGB CONC 29.9 g/dL (32.0-36.0); Mean Corpuscular Hemoglobin 23.8 pg (27.0-31.0); Mean Corpuscular Volume 79.8 fl (78.0-98.0); Mean Platelet Volume 10.4 fL (7.4-10.4); Platelet Count 501 10x3/uL (130-400); RBC Distribution Width 21.4 % (11.5-14.5); Red Blood Cell (RBC) Count 3.86 mill/uL (4.70-6.10); White Blood Cell (WBC) Count 8.1 10x3/uL (4.8-10.8)
[2022-09-13 05:11] LABS: ALT (SGPT) 14 U/L (8-55); AST (SGOT) 19 U/L (5-34); Albumin 2.9 g/dL (3.5-5.0); Alkaline Phosphatase 111 U/L (40-110); Anion Gap 14 mmol/L (10-20); BUN (Urea Nitrogen) 17 mg/dL (8.4-25.7); Bilirubin, Direct 0.2 mg/dL (0.1-0.3); Bilirubin, Total 0.3 mg/dL (0.2-1.2); CK (CPK) 34 U/L (30-200); Calc. Creatinine Clearance 133 mL/min (70-130); Calcium 8.8 mg/dL (7.8-10.44); Carbon Dioxide 25 mmol/L (22-29); Chloride 105 mmol/L (98-107); Estimated GFR 104; Glucose 93 mg/dL (70-105); Potassium 3.7 mmol/L (3.5-5.1); Protein, Total 6.8 g/dL (6.0-8.3); Sodium 140 mmol/L (136-145)
[2022-09-13] MEDS ORDERED: Iopamidol-370 76% 500 ML MDV (1 ML CHARGE) ONE (08:55)
[2022-09-13] MEDS: Polyethylene Glycol 3350 17 GM Packet PO SCH ×2 (10:04→10:05)
[2022-09-13] MEDS: Aspirin 81 mg Enteric Coated Tablet PO SCH (10:05)
[2022-09-13] MEDS: Empagliflozin 10 MG TAB PO SCH (10:05)
[2022-09-13] MEDS: Saccharomyces boulardii 250 MG CAP PO SCH (10:05)
[2022-09-13] MEDS: Sacubitril 24MG/Valsartan 26 MG TAB PO SCH ×2 (10:05→20:45)
[2022-09-13] MEDS: Apixaban 5 MG TAB PO SCH ×2 (10:05→20:45)
[2022-09-13] MEDS: Famotidine 20 MG TAB PO SCH ×2 (10:05→20:46)
[2022-09-13] MEDS: Carvedilol 3.125 MG TAB PO SCH ×2 (10:05→17:58)
[2022-09-13] MEDS: HYDROcodone/Acetaminophen 7.5/325 mg Tablet PO PRN ×2 (10:13→20:49)
[2022-09-13] MEDS: SODIUM CHLORIDE 0.9% IVPB SCH (17:58)
[2022-09-13] MEDS: DAPTOMYCIN IVPB SCH (17:58)
[2022-09-13] MEDS: Gabapentin 300 MG CAP PO SCH (20:46)
[2022-09-13] MEDS: Bisacodyl 10 MG SUPP PR SCH (20:47)
[2022-09-14] MEDS: Ceftaroline 600 MG in Sodium Chloride 0.9% 100 ML IVPB SCH ×3 (04:28→19:26)
[2022-09-14] MEDS: Apixaban 5 MG TAB PO SCH ×2 (09:35→20:34)
[2022-09-14] MEDS: Aspirin 81 mg Enteric Coated Tablet PO SCH (09:35)
[2022-09-14] MEDS: Sacubitril 24MG/Valsartan 26 MG TAB PO SCH ×2 (09:35→20:33)
[2022-09-14] MEDS: Polyethylene Glycol 3350 17 GM Packet PO SCH (09:35)
[2022-09-14] MEDS: Famotidine 20 MG TAB PO SCH ×2 (09:36→20:33)
[2022-09-14] MEDS: HYDROcodone/Acetaminophen 7.5/325 mg Tablet PO PRN ×3 (09:36→20:33)
[2022-09-14] MEDS: Carvedilol 3.125 MG TAB PO SCH ×2 (09:37→16:01)
[2022-09-14] MEDS: Saccharomyces boulardii 250 MG CAP PO SCH (09:37)
[2022-09-14] MEDS: Empagliflozin 10 MG TAB PO SCH (09:37)
[2022-09-14] MEDS: HumaLOG 300 UNITS/3 ML VIAL SC PRN (12:31)
[2022-09-14] MEDS: SODIUM CHLORIDE 0.9% IVPB SCH (18:43)
[2022-09-14] MEDS: DAPTOMYCIN IVPB SCH (18:43)
[2022-09-14] MEDS: Gabapentin 300 MG CAP PO SCH (20:34)
[2022-09-14] MEDS: Bisacodyl 10 MG SUPP PR SCH (20:34)
[2022-09-15] MEDS: Ceftaroline 600 MG in Sodium Chloride 0.9% 100 ML IVPB SCH ×3 (03:56→20:21)
[2022-09-15] MEDS: Saccharomyces boulardii 250 MG CAP PO SCH (09:03)
[2022-09-15] MEDS: Polyethylene Glycol 3350 17 GM Packet PO SCH (09:03)
[2022-09-15] MEDS: Famotidine 20 MG TAB PO SCH ×2 (09:03→20:21)
[2022-09-15] MEDS: Sacubitril 24MG/Valsartan 26 MG TAB PO SCH ×2 (09:03→20:24)
[2022-09-15] MEDS: Apixaban 5 MG TAB PO SCH ×2 (09:03→20:21)
[2022-09-15] MEDS: Carvedilol 3.125 MG TAB PO SCH ×2 (09:03→17:43)
[2022-09-15] MEDS: Aspirin 81 mg Enteric Coated Tablet PO SCH (09:03)
[2022-09-15] MEDS: HYDROcodone/Acetaminophen 7.5/325 mg Tablet PO PRN ×3 (09:16→23:41)
[2022-09-15] MEDS: Empagliflozin 10 MG TAB PO SCH (09:18)
[2022-09-15] MEDS: SODIUM CHLORIDE 0.9% IVPB SCH (17:55)
[2022-09-15] MEDS: DAPTOMYCIN IVPB SCH (17:55)
[2022-09-15] MEDS: Gabapentin 300 MG CAP PO SCH (20:20)
[2022-09-15] MEDS: Bisacodyl 10 MG SUPP PR SCH (20:23)
[2022-09-15] MEDS: traMADol HCl 50 MG TAB PO PRN (20:34)
[2022-09-16] MEDS: HYDROcodone/Acetaminophen 7.5/325 mg Tablet PO PRN ×3 (04:27→17:16)
[2022-09-16] MEDS: Ceftaroline 600 MG in Sodium Chloride 0.9% 100 ML IVPB SCH ×3 (04:28→21:18)
[2022-09-16] MEDS: Famotidine 20 MG TAB PO SCH ×2 (09:39→20:16)
[2022-09-16] MEDS: Saccharomyces boulardii 250 MG CAP PO SCH (09:39)
[2022-09-16] MEDS: Apixaban 5 MG TAB PO SCH ×2 (09:39→20:16)
[2022-09-16] MEDS: Furosemide 20 MG TAB PO SCH (09:39)
[2022-09-16] MEDS: Polyethylene Glycol 3350 17 GM Packet PO SCH (09:39)
[2022-09-16] MEDS: Aspirin 81 mg Enteric Coated Tablet PO SCH (09:39)
[2022-09-16] MEDS: Sacubitril 24MG/Valsartan 26 MG TAB PO SCH ×2 (09:40→20:16)
[2022-09-16] MEDS: Carvedilol 3.125 MG TAB PO SCH ×2 (09:40→17:16)
[2022-09-16] MEDS: Empagliflozin 10 MG TAB PO SCH (09:47)
[2022-09-16] MEDS: DAPTOMYCIN IVPB SCH (17:16)
[2022-09-16] MEDS: SODIUM CHLORIDE 0.9% IVPB SCH (17:16)
[2022-09-16] MEDS ORDERED: Sodium Chloride 0.9% 500 ML IV SCH (20:15)
[2022-09-16] MEDS: Gabapentin 300 MG CAP PO SCH (20:16)
[2022-09-16] MEDS: Bisacodyl 10 MG SUPP PR SCH (20:22)
[2022-09-17] MEDS: Ceftaroline 600 MG in Sodium Chloride 0.9% 100 ML IVPB SCH ×3 (03:41→20:20)
[2022-09-17] MEDS: HYDROcodone/Acetaminophen 7.5/325 mg Tablet PO PRN (03:46)
[2022-09-17] MEDS: Polyethylene Glycol 3350 17 GM Packet PO SCH (09:35)
[2022-09-17] MEDS: Famotidine 20 MG TAB PO SCH ×2 (09:35→20:21)
[2022-09-17] MEDS: Sacubitril 24MG/Valsartan 26 MG TAB PO SCH ×2 (09:35→20:21)
[2022-09-17] MEDS: Apixaban 5 MG TAB PO SCH ×2 (09:36→20:21)
[2022-09-17] MEDS: Carvedilol 3.125 MG TAB PO SCH ×2 (09:36→18:12)
[2022-09-17] MEDS: Furosemide 20 MG TAB PO SCH (09:36)
[2022-09-17] MEDS: Aspirin 81 mg Enteric Coated Tablet PO SCH (09:36)
[2022-09-17] MEDS: Saccharomyces boulardii 250 MG CAP PO SCH (09:36)
[2022-09-17] MEDS: Empagliflozin 10 MG TAB PO SCH (09:36)
[2022-09-17] MEDS: traMADol HCl 50 MG TAB PO PRN (09:43)
[2022-09-17] MEDS: DAPTOMYCIN IVPB SCH (18:11)
[2022-09-17] MEDS: SODIUM CHLORIDE 0.9% IVPB SCH (18:11)
[2022-09-17] MEDS: Bisacodyl 10 MG SUPP PR SCH (20:21)
[2022-09-17] MEDS: Gabapentin 300 MG CAP PO SCH (20:21)
[2022-09-18] MEDS: traMADol HCl 50 MG TAB PO PRN ×3 (01:45→20:05)
[2022-09-18] MEDS: Ceftaroline 600 MG in Sodium Chloride 0.9% 100 ML IVPB SCH ×3 (03:12→21:00)
[2022-09-18 06:41] LABS: ALT (SGPT) 12 U/L (8-55); AST (SGOT) 15 U/L (5-34); Albumin 2.9 g/dL (3.5-5.0); Alkaline Phosphatase 102 U/L (40-110); Anion Gap 12 mmol/L (10-20); BUN (Urea Nitrogen) 13 mg/dL (8.4-25.7); Bilirubin, Total 0.5 mg/dL (0.2-1.2); Calc. Creatinine Clearance 140 mL/min (70-130); Calcium 8.7 mg/dL (7.8-10.44); Carbon Dioxide 22 mmol/L (22-29); Chloride 103 mmol/L (98-107); Estimated GFR 105; Globulin 4.1 g/dL (2.4-3.5); Glucose 90 mg/dL (70-105); Potassium 3.7 mmol/L (3.5-5.1); Sodium 133 mmol/L (136-145)
[2022-09-18 07:07] LABS: #Eosinphils 0.1 thou/uL (0.0-0.7); #Monocytes 0.8 thou/uL (0.11-0.59); #Neutrophils 6.7 thou/uL (1.40-6.50); %Basophils 0.5 % (0.0-1.0); %Lymphocytes 12.1 % (21.0-51.0); %Monocytes 9.5 % (0.0-10.0); %Neutrophils 76.6 % (42.0-75.0); Hematocrit 30.6 % (42.0-52.0); Hemoglobin 9.2 g/dL (14.0-18.0); Mean Corpuscular HGB CONC 30.1 g/dL (32.0-36.0); Mean Corpuscular Hemoglobin 23.8 pg (27.0-31.0); Mean Corpuscular Volume 79.3 fl (78.0-98.0); Mean Platelet Volume 10.4 fL (7.4-10.4); Platelet Count 359 10x3/uL (130-400); RBC Distribution Width 20.6 % (11.5-14.5); Red Blood Cell (RBC) Count 3.86 mill/uL (4.70-6.10); White Blood Cell (WBC) Count 8.7 10x3/uL (4.8-10.8)
[2022-09-18] MEDS: Empagliflozin 10 MG TAB PO SCH (09:23)
[2022-09-18] MEDS: Saccharomyces boulardii 250 MG CAP PO SCH (09:23)
[2022-09-18] MEDS: Carvedilol 3.125 MG TAB PO SCH ×2 (09:23→17:38)
[2022-09-18] MEDS: Sacubitril 24MG/Valsartan 26 MG TAB PO SCH ×2 (09:23→20:05)
[2022-09-18] MEDS: Famotidine 20 MG TAB PO SCH ×2 (09:23→20:05)
[2022-09-18] MEDS: Apixaban 5 MG TAB PO SCH ×2 (09:23→20:05)
[2022-09-18] MEDS: Aspirin 81 mg Enteric Coated Tablet PO SCH (09:23)
[2022-09-18] MEDS: Furosemide 20 MG TAB PO SCH (09:23)
[2022-09-18] MEDS: Polyethylene Glycol 3350 17 GM Packet PO SCH (09:28)
[2022-09-18] MEDS: DAPTOMYCIN IVPB SCH (17:38)
[2022-09-18] MEDS: SODIUM CHLORIDE 0.9% IVPB SCH (17:38)
[2022-09-18] MEDS: Gabapentin 300 MG CAP PO SCH (20:05)
[2022-09-18] MEDS: Bisacodyl 10 MG SUPP PR SCH (20:05)
[2022-09-19] MEDS: Ceftaroline 600 MG in Sodium Chloride 0.9% 100 ML IVPB SCH ×3 (03:00→21:49)
[2022-09-19] MEDS: traMADol HCl 50 MG TAB PO PRN ×3 (04:52→22:00)
[2022-09-19] MEDS: Saccharomyces boulardii 250 MG CAP PO SCH (08:40)
[2022-09-19] MEDS: Aspirin 81 mg Enteric Coated Tablet PO SCH (08:40)
[2022-09-19] MEDS: Furosemide 20 MG TAB PO SCH (08:40)
[2022-09-19] MEDS: Carvedilol 3.125 MG TAB PO SCH ×2 (08:40→18:06)
[2022-09-19] MEDS: Sacubitril 24MG/Valsartan 26 MG TAB PO SCH ×2 (08:40→21:51)
[2022-09-19] MEDS: Polyethylene Glycol 3350 17 GM Packet PO SCH (08:40)
[2022-09-19] MEDS: Apixaban 5 MG TAB PO SCH ×2 (08:40→21:50)
[2022-09-19] MEDS: Empagliflozin 10 MG TAB PO SCH (08:40)
[2022-09-19] MEDS: Famotidine 20 MG TAB PO SCH ×2 (08:40→21:50)
[2022-09-19] MEDS: DAPTOMYCIN IVPB SCH (18:06)
[2022-09-19] MEDS: SODIUM CHLORIDE 0.9% IVPB SCH (18:06)
[2022-09-19] MEDS: Gabapentin 300 MG CAP PO SCH (21:50)
[2022-09-19] MEDS: Bisacodyl 10 MG SUPP PR SCH (21:51)
[2022-09-20] MEDS: Ceftaroline 600 MG in Sodium Chloride 0.9% 100 ML IVPB SCH ×2 (04:11→13:01)
[2022-09-20] MEDS: Saccharomyces boulardii 250 MG CAP PO SCH (09:07)
[2022-09-20] MEDS: Aspirin 81 mg Enteric Coated Tablet PO SCH (09:07)
[2022-09-20] MEDS: Polyethylene Glycol 3350 17 GM Packet PO SCH (09:07)
[2022-09-20] MEDS: Apixaban 5 MG TAB PO SCH (09:07)
[2022-09-20] MEDS: Sacubitril 24MG/Valsartan 26 MG TAB PO SCH (09:07)
[2022-09-20] MEDS: Empagliflozin 10 MG TAB PO SCH (09:07)
[2022-09-20] MEDS: Famotidine 20 MG TAB PO SCH (09:07)
[2022-09-20] MEDS: Carvedilol 3.125 MG TAB PO SCH (09:08)
[2022-09-20] MEDS: Furosemide 20 MG TAB PO SCH (09:08)
[2022-09-20] MEDS: traMADol HCl 50 MG TAB PO PRN (09:14)
[2022-09-20 12:38] VITALS: BP 117/73; TEMP 98.2
[2022-09-20] MEDS: Acetaminophen 325 MG TAB PO PRN (13:11)
== END 2022-09-20 14:10 | DRG 872 ==
LOC: ERS 00:23 → ERHOLD 01:54 → 2NO 02:21 → T4-A 08-30 16:11 → 2SE 08-30 18:54 → 2NO 09-05 14:29 → SURG A 09-13 08:15
PROVIDERS: ADMIT Student in an Organized Health Care Education/Training Program; ATTEND Internal Medicine
PROC: 3E03329 Introduction of Other Anti-infective into Peripheral Vein, Percutaneous Approach (ICD-10-PCS; 2022-08-28)
PROC: 0R9K3ZZ Drainage of Left Shoulder Joint, Percutaneous Approach (ICD-10-PCS; 2022-08-29)
PROC: 3E1U48Z Irrigation of Joints using Irrigating Substance, Percutaneous Endoscopic Approach (ICD-10-PCS; principal; 2022-09-05)
PROC: 0R9K4ZZ Drainage of Left Shoulder Joint, Percutaneous Endoscopic Approach (ICD-10-PCS; 2022-09-05)
PROC: 3E033XZ Introduction of Vasopressor into Peripheral Vein, Percutaneous Approach (ICD-10-PCS; 2022-09-05)
PROC: 0R9K4ZZ Drainage of Left Shoulder Joint, Percutaneous Endoscopic Approach (ICD-10-PCS; 2022-09-05)
PROC: B548ZZA Ultrasonography of Superior Vena Cava, Guidance (ICD-10-PCS; 2022-09-12)
PROC: 02HV33Z Insertion of Infusion Device into Superior Vena Cava, Percutaneous Approach (ICD-10-PCS; 2022-09-12)
PROC: B5181ZA Fluoroscopy of Superior Vena Cava using Low Osmolar Contrast, Guidance (ICD-10-PCS; 2022-09-12)
DX: A41.01 Sepsis due to Methicillin susceptible Staphylococcus aureus (principal); E87.20 Acidosis, unspecified; M00.9 Pyogenic arthritis, unspecified; N17.9 Acute kidney failure, unspecified; I48.20 Chronic atrial fibrillation, unspecified; I13.0 Hypertensive heart and chronic kidney disease with heart failure and stage 1 through stage 4 chronic kidney disease, or unspecified chronic kidney disease; I50.22 Chronic systolic (congestive) heart failure; M46.22 Osteomyelitis of vertebra, cervical region; Z51.5 Encounter for palliative care; E87.6 Hypokalemia; E78.00 Pure hypercholesterolemia, unspecified; E11.22 Type 2 diabetes mellitus with diabetic chronic kidney disease; B95.62 Methicillin resistant Staphylococcus aureus infection as the cause of diseases classified elsewhere; M19.012 Primary osteoarthritis, left shoulder; I25.10 Atherosclerotic heart disease of native coronary artery without angina pectoris; N18.2 Chronic kidney disease, stage 2 (mild); I48.91 Unspecified atrial fibrillation; E83.42 Hypomagnesemia; I25.5 Ischemic cardiomyopathy; E11.51 Type 2 diabetes mellitus with diabetic peripheral angiopathy without gangrene; R79.89 Other specified abnormal findings of blood chemistry; L89.152 Pressure ulcer of sacral region, stage 2; D63.1 Anemia in chronic kidney disease; I95.9 Hypotension, unspecified; M10.9 Gout, unspecified; M25.511 Pain in right shoulder; M25.521 Pain in right elbow; Z79.4 Long term (current) use of insulin; Z79.82 Long term (current) use of aspirin; Z79.899 Other long term (current) drug therapy; Z89.511 Acquired absence of right leg below knee; Z89.512 Acquired absence of left leg below knee; Z79.01 Long term (current) use of anticoagulants; R65.20 Severe sepsis without septic shock
CPT/HCPCS: 20610; 36415; 36416; 36569; 72126; 72129; 72156; 76706; 77002; 80048; 80053; 80076; 80202; 82010; 82550; 82553; 82607; 82728; 82805; 82945; 83540; 83550; 83605; 83735; 83880; 84100; 84484; 85025; 85060; 85652; 86140; 86850; 86900; 86901; 87040; 87070; 87077; 87149; 87186; 87205; 89051; 89060; 93005; 93306; A9579; C1751; J0692; J0712; J0878; J1815; J2250; J2270; J2272; J2370; J2405; J2704; J3370; J3370-JW; J3372; J3475; J3490; J7030; J7070; J7999; Q0162; Q9967

== ENCOUNTER 2022-10-12 10:37 | Inpatient (IN) | payer OTHER ==
[2022-10-12] MEDS ORDERED: Dexamethasone 4 MG TAB ONE (11:32)
[2022-10-12] MEDS ORDERED: diphenhydrAMINE 50 MG/ML VIAL ONE (11:32)
[2022-10-12] MEDS ORDERED: Dexamethasone 4 mg/ml Vial ONE (11:39)
[2022-10-12 12:32] LABS: #Basophils 0.1 thou/uL (0.0-0.2); #Eosinphils 1.6 thou/uL (0.0-0.7); #Monocytes 0.8 thou/uL (0.11-0.59); %Eosinophils 15.6 % (0.0-10.0); %Lymphocytes 14.8 % (21.0-51.0); %Monocytes 8.4 % (0.0-10.0); %Neutrophils 59.8 % (42.0-75.0); Hematocrit 42.4 % (42.0-52.0); Hemoglobin 12.3 g/dL (14.0-18.0); Mean Corpuscular Volume 82.7 fl (78.0-98.0); Mean Platelet Volume 10.6 fL (7.4-10.4); Platelet Count 321 10x3/uL (130-400); RBC Distribution Width 20.1 % (11.5-14.5); Red Blood Cell (RBC) Count 5.13 mill/uL (4.70-6.10)
[2022-10-12 12:52] LABS: Bacteria/HPF None Seen HPF (None Seen); Bilirubin Negative (Negative); Blood, Urine Negative (Negative); CAUTI Indications for Culture Dysuria,urgency,freq; Clarity Clear (Clear); Glucose, Urine (Dipstick) Greater than 1000 mg/dL (Negative); Ketone, Urine Negative (Negative); Leukocyte Negative Leu/uL (Negative); Nitrite Negative (Negative); Protein, Urine (Dipstick) Negative (Neg-Trace); RBC/HPF 0-3 HPF (0-3); Specific Gravity, Urine 1.014 (1.002-1.036); Squamous Epithelial None Seen HPF (0-3); Urobilinogen Normal mg/dL (Less than 2); WBC/HPF 0-3 HPF (0-3); pH, Urine 6.5 (5.0-9.0)
[2022-10-12 12:58] LABS: Troponin I Less than 0.010 ng/mL (< 0.028)
[2022-10-12 13:00] LABS: ALT (SGPT) 9 U/L (8-55); AST (SGOT) 12 U/L (5-34); Albumin 3.7 g/dL (3.5-5.0); Alkaline Phosphatase 155 U/L (40-110); Anion Gap 15 mmol/L (10-20); BUN (Urea Nitrogen) 11 mg/dL (8.4-25.7); Bilirubin, Total 0.6 mg/dL (0.2-1.2); Calc. Creatinine Clearance 0 mL/min (70-130); Calcium 9.7 mg/dL (7.8-10.44); Carbon Dioxide 23 mmol/L (22-29); Chloride 103 mmol/L (98-107); Estimated GFR 89; Globulin 3.8 g/dL (2.4-3.5); Glucose 98 mg/dL (70-105); Potassium 4.5 mmol/L (3.5-5.1); Protein, Total 7.5 g/dL (6.0-8.3); Sodium 136 mmol/L (136-145)
[2022-10-12 13:04] LABS: Urine Culture Reflex No No
[2022-10-12] MEDS ORDERED: Acetaminophen 325 MG TAB PO PRN (13:37)
[2022-10-12] MEDS ORDERED: Ondansetron ODT 4 MG TAB PO PRN (13:37)
[2022-10-12] MEDS ORDERED: Ondansetron PF 4 MG/2 ML Vial IVP PRN (13:37)
[2022-10-12] MEDS ORDERED: Glucagon 1 MG/ML KIT IM PRN (14:34)
[2022-10-12] MEDS ORDERED: Dextrose 50% Abboject 50 ML SYRINGE SLOW IVP PRN (14:34)
[2022-10-12] MEDS ORDERED: Dextrose 5% in Water 1,000 ML IV PRN (14:34)
[2022-10-12] MEDS ORDERED: HumaLOG 300 UNITS/3 ML VIAL SC PRN ×2 (14:34)
[2022-10-12 14:58] VITALS: BMI 28.8
[2022-10-12] MEDS: Carvedilol 3.125 MG TAB PO SCH (16:56)
[2022-10-12] MEDS ORDERED: Melatonin 3 MG TAB PO PRN (17:13)
[2022-10-12] MEDS: traMADol HCl 50 MG TAB PO PRN (20:01)
[2022-10-12] MEDS: Apixaban 5 MG TAB PO SCH (20:02)
[2022-10-12] MEDS: Famotidine 20 MG TAB PO SCH (20:02)
[2022-10-12] MEDS: Gabapentin 300 MG CAP PO SCH (20:02)
[2022-10-12] MEDS: Sacubitril 24MG/Valsartan 26 MG TAB PO SCH (20:02)
[2022-10-12] MEDS ORDERED: Atorvastatin Calcium 10 MG TAB PO SCH (21:00)
[2022-10-13] MEDS ORDERED: diphenhydrAMINE 25 MG CAP PO SCH (04:15)
[2022-10-13] MEDS: traMADol HCl 50 MG TAB PO PRN (04:23)
[2022-10-13 04:40] LABS: #Monocytes 0.3 thou/uL (0.11-0.59); %Basophils 0.5 % (0.0-1.0); %Eosinophils 0.2 % (0.0-10.0); %Lymphocytes 14.4 % (21.0-51.0); %Monocytes 5.1 % (0.0-10.0); %Neutrophils 79.5 % (42.0-75.0); Hematocrit 37.8 % (42.0-52.0); Hemoglobin 11.1 g/dL (14.0-18.0); Mean Corpuscular HGB CONC 29.4 g/dL (32.0-36.0); Mean Corpuscular Volume 81.6 fl (78.0-98.0); Platelet Count 320 10x3/uL (130-400); RBC Distribution Width 19.9 % (11.5-14.5); Red Blood Cell (RBC) Count 4.63 mill/uL (4.70-6.10); White Blood Cell (WBC) Count 6.3 10x3/uL (4.8-10.8)
[2022-10-13 05:04] LABS: Anion Gap 16 mmol/L (10-20); BUN (Urea Nitrogen) 16 mg/dL (8.4-25.7); CK (CPK) 37 U/L (30-200); Calc. Creatinine Clearance 88 mL/min (70-130); Calcium 9.6 mg/dL (7.8-10.44); Carbon Dioxide 22 mmol/L (22-29); Chloride 104 mmol/L (98-107); Estimated GFR 92; Glucose 120 mg/dL (70-105); Potassium 4.2 mmol/L (3.5-5.1); Sodium 138 mmol/L (136-145)
[2022-10-13] MEDS: Sacubitril 24MG/Valsartan 26 MG TAB PO SCH ×2 (08:54→21:03)
[2022-10-13] MEDS: Saccharomyces boulardii 250 MG CAP PO SCH (08:54)
[2022-10-13] MEDS: Apixaban 5 MG TAB PO SCH ×2 (08:54→21:03)
[2022-10-13] MEDS: Empagliflozin 10 MG TAB PO SCH (08:54)
[2022-10-13] MEDS: Aspirin 81 mg Enteric Coated Tablet PO SCH (08:54)
[2022-10-13] MEDS: Carvedilol 3.125 MG TAB PO SCH ×2 (08:54→18:08)
[2022-10-13] MEDS: Furosemide 20 MG TAB PO SCH (08:54)
[2022-10-13] MEDS: Famotidine 20 MG TAB PO SCH ×2 (08:54→21:03)
[2022-10-13] MEDS ORDERED: DAPTOMYCIN IVPB SCH (09:00)
[2022-10-13] MEDS ORDERED: SODIUM CHLORIDE 0.9% IVPB SCH (09:00)
[2022-10-13] MEDS ORDERED: diphenhydrAMINE 50 MG/ML VIAL ONE (09:35)
[2022-10-13] MEDS ORDERED: diphenhydrAMINE 50 MG/ML VIAL IVP SCH (10:30)
[2022-10-13] MEDS ORDERED: Vancomycin 1.5 GRAM/300 ML BAG 1.5 GM in Premix Bag 1 BAG IVPB SCH (20:00)
[2022-10-13] MEDS: Gabapentin 300 MG CAP PO SCH (21:03)
[2022-10-13] MEDS: diphenhydrAMINE 25 MG CAP PO PRN (23:27)
[2022-10-14] MEDS: diphenhydrAMINE 25 MG CAP PO PRN ×2 (05:02→19:03)
[2022-10-14] MEDS: traMADol HCl 50 MG TAB PO PRN ×2 (05:03→19:03)
[2022-10-14 06:58] LABS: #Basophils 0.1 thou/uL (0.0-0.2); #Eosinphils 0.7 thou/uL (0.0-0.7); #Monocytes 0.8 thou/uL (0.11-0.59); #Neutrophils 6.9 thou/uL (1.40-6.50); %Basophils 0.8 % (0.0-1.0); %Eosinophils 6.8 % (0.0-10.0); %Lymphocytes 15.6 % (21.0-51.0); %Monocytes 8.2 % (0.0-10.0); %Neutrophils 68.3 % (42.0-75.0); Hematocrit 36.8 % (42.0-52.0); Hemoglobin 10.9 g/dL (14.0-18.0); Mean Corpuscular HGB CONC 29.6 g/dL (32.0-36.0); Mean Corpuscular Hemoglobin 24.3 pg (27.0-31.0); Mean Corpuscular Volume 82.1 fl (78.0-98.0); Mean Platelet Volume 10.7 fL (7.4-10.4); Platelet Count 312 10x3/uL (130-400); RBC Distribution Width 19.9 % (11.5-14.5); Red Blood Cell (RBC) Count 4.48 mill/uL (4.70-6.10); White Blood Cell (WBC) Count 10.1 10x3/uL (4.8-10.8)
[2022-10-14 07:20] LABS: Anion Gap 13 mmol/L (10-20); BUN (Urea Nitrogen) 17 mg/dL (8.4-25.7); Calc. Creatinine Clearance 83 mL/min (70-130); Calcium 9.2 mg/dL (7.8-10.44); Carbon Dioxide 25 mmol/L (22-29); Chloride 104 mmol/L (98-107); Estimated GFR 87; Glucose 119 mg/dL (70-105); Potassium 4.1 mmol/L (3.5-5.1); Sodium 138 mmol/L (136-145)
[2022-10-14] MEDS: Famotidine 20 MG TAB PO SCH ×2 (09:30→20:31)
[2022-10-14] MEDS: Empagliflozin 10 MG TAB PO SCH (09:30)
[2022-10-14] MEDS: VANCOMYCIN 1.25 GM/250 ML BAG 1.25 GM in Premix Bag 1 BAG IVPB SCH ×2 (09:30→21:54)
[2022-10-14] MEDS: Aspirin 81 mg Enteric Coated Tablet PO SCH (09:30)
[2022-10-14] MEDS: Furosemide 20 MG TAB PO SCH (09:30)
[2022-10-14] MEDS: Sacubitril 24MG/Valsartan 26 MG TAB PO SCH ×2 (09:30→20:31)
[2022-10-14] MEDS: Saccharomyces boulardii 250 MG CAP PO SCH (09:30)
[2022-10-14] MEDS: Apixaban 5 MG TAB PO SCH ×2 (09:30→20:32)
[2022-10-14] MEDS: Carvedilol 3.125 MG TAB PO SCH ×3 (09:32→17:43)
[2022-10-14] MEDS: Gabapentin 300 MG CAP PO SCH (20:32)
[2022-10-15] MEDS: traMADol HCl 50 MG TAB PO PRN ×3 (04:42→21:52)
[2022-10-15] MEDS: diphenhydrAMINE 25 MG CAP PO PRN ×3 (04:42→21:52)
[2022-10-15 05:16] LABS: #Basophils 0.1 thou/uL (0.0-0.2); #Eosinphils 0.9 thou/uL (0.0-0.7); #Neutrophils 6.3 thou/uL (1.40-6.50); %Basophils 1.1 % (0.0-1.0); %Eosinophils 8.8 % (0.0-10.0); %Lymphocytes 16.1 % (21.0-51.0); %Monocytes 9.9 % (0.0-10.0); %Neutrophils 63.8 % (42.0-75.0); Hematocrit 38.7 % (42.0-52.0); Hemoglobin 11.4 g/dL (14.0-18.0); Mean Corpuscular HGB CONC 29.5 g/dL (32.0-36.0); Mean Corpuscular Hemoglobin 24.3 pg (27.0-31.0); Mean Corpuscular Volume 82.3 fl (78.0-98.0); Mean Platelet Volume 10.5 fL (7.4-10.4); Platelet Count 306 10x3/uL (130-400); RBC Distribution Width 19.7 % (11.5-14.5); White Blood Cell (WBC) Count 9.9 10x3/uL (4.8-10.8)
[2022-10-15 05:37] LABS: Anion Gap 12 mmol/L (10-20); BUN (Urea Nitrogen) 17 mg/dL (8.4-25.7); Calc. Creatinine Clearance 87 mL/min (70-130); Calcium 9.3 mg/dL (7.8-10.44); Carbon Dioxide 25 mmol/L (22-29); Chloride 104 mmol/L (98-107); Estimated GFR 91; Glucose 113 mg/dL (70-105); Sodium 137 mmol/L (136-145)
[2022-10-15] MEDS: Apixaban 5 MG TAB PO SCH ×2 (07:59→21:53)
[2022-10-15] MEDS: Carvedilol 3.125 MG TAB PO SCH ×2 (07:59→16:14)
[2022-10-15] MEDS: Sacubitril 24MG/Valsartan 26 MG TAB PO SCH ×2 (07:59→21:53)
[2022-10-15] MEDS: Empagliflozin 10 MG TAB PO SCH (07:59)
[2022-10-15] MEDS: Aspirin 81 mg Enteric Coated Tablet PO SCH (07:59)
[2022-10-15] MEDS: Famotidine 20 MG TAB PO SCH ×2 (07:59→21:53)
[2022-10-15] MEDS: Saccharomyces boulardii 250 MG CAP PO SCH (07:59)
[2022-10-15] MEDS: Furosemide 20 MG TAB PO SCH (07:59)
[2022-10-15 09:49] LABS: Vancomycin, Trough 16.8 ug/mL
[2022-10-15] MEDS: VANCOMYCIN 1.25 GM/250 ML BAG 1.25 GM in Premix Bag 1 BAG IVPB SCH ×2 (11:00→21:53)
[2022-10-15] MEDS: Gabapentin 300 MG CAP PO SCH (21:53)
[2022-10-16] MEDS: diphenhydrAMINE 25 MG CAP PO PRN ×2 (05:38→14:41)
[2022-10-16] MEDS: traMADol HCl 50 MG TAB PO PRN ×2 (05:38→14:41)
[2022-10-16 05:50] LABS: #Basophils 0.1 thou/uL (0.0-0.2); #Eosinphils 0.9 thou/uL (0.0-0.7); #Monocytes 1.1 thou/uL (0.11-0.59); #Neutrophils 7.5 thou/uL (1.40-6.50); %Basophils 0.8 % (0.0-1.0); %Eosinophils 8.1 % (0.0-10.0); %Lymphocytes 12.9 % (21.0-51.0); %Monocytes 9.7 % (0.0-10.0); %Neutrophils 68.1 % (42.0-75.0); Hematocrit 37.4 % (42.0-52.0); Hemoglobin 11.1 g/dL (14.0-18.0); Mean Corpuscular HGB CONC 29.7 g/dL (32.0-36.0); Mean Corpuscular Hemoglobin 24.1 pg (27.0-31.0); Mean Corpuscular Volume 81.3 fl (78.0-98.0); Mean Platelet Volume 10.6 fL (7.4-10.4); Platelet Count 267 10x3/uL (130-400); RBC Distribution Width 19.6 % (11.5-14.5); White Blood Cell (WBC) Count 11.1 10x3/uL (4.8-10.8)
[2022-10-16 06:16] LABS: Anion Gap 11 mmol/L (10-20); BUN (Urea Nitrogen) 15 mg/dL (8.4-25.7); Calc. Creatinine Clearance 101 mL/min (70-130); Calcium 8.9 mg/dL (7.8-10.44); Carbon Dioxide 25 mmol/L (22-29); Chloride 103 mmol/L (98-107); Estimated GFR 101; Glucose 110 mg/dL (70-105); Sodium 135 mmol/L (136-145)
[2022-10-16] MEDS: Carvedilol 3.125 MG TAB PO SCH (09:34)
[2022-10-16] MEDS: Aspirin 81 mg Enteric Coated Tablet PO SCH (10:09)
[2022-10-16] MEDS: Saccharomyces boulardii 250 MG CAP PO SCH (10:09)
[2022-10-16] MEDS: Sacubitril 24MG/Valsartan 26 MG TAB PO SCH (10:09)
[2022-10-16] MEDS: VANCOMYCIN 1.25 GM/250 ML BAG 1.25 GM in Premix Bag 1 BAG IVPB SCH (10:10)
[2022-10-16] MEDS: Empagliflozin 10 MG TAB PO SCH (10:10)
[2022-10-16] MEDS: Furosemide 20 MG TAB PO SCH (10:10)
[2022-10-16] MEDS: Apixaban 5 MG TAB PO SCH (10:10)
[2022-10-16] MEDS: Famotidine 20 MG TAB PO SCH (10:10)
[2022-10-16 12:21] VITALS: BP 112/62; TEMP 97.9
== END 2022-10-16 14:50 | DRG 872 ==
LOC: ERS 10:37 → T4-B 13:37
PROVIDERS: ADMIT Family Medicine; ATTEND Internal Medicine
DX: A41.9 Sepsis, unspecified organism (principal); I13.0 Hypertensive heart and chronic kidney disease with heart failure and stage 1 through stage 4 chronic kidney disease, or unspecified chronic kidney disease; I50.20 Unspecified systolic (congestive) heart failure; M86.9 Osteomyelitis, unspecified; Z79.899 Other long term (current) drug therapy; Z79.4 Long term (current) use of insulin; Z79.82 Long term (current) use of aspirin; N18.30 Chronic kidney disease, stage 3 unspecified; E11.22 Type 2 diabetes mellitus with diabetic chronic kidney disease; E78.00 Pure hypercholesterolemia, unspecified; Z89.512 Acquired absence of left leg below knee; Z89.511 Acquired absence of right leg below knee; I48.91 Unspecified atrial fibrillation; E11.40 Type 2 diabetes mellitus with diabetic neuropathy, unspecified; L50.0 Allergic urticaria; T36.8X5A Adverse effect of other systemic antibiotics, initial encounter; E11.69 Type 2 diabetes mellitus with other specified complication
CPT/HCPCS: 36415; 36416; 71045; 80048; 80053; 80202; 81001; 82550; 83605; 84145; 84484; 85025; 85652; 86140; 87040; 87086; 96374; 96375; J0878; J1100; J1200; J3370; J8540

== ENCOUNTER 2023-01-04 22:51 | Inpatient (IN) | payer OTHER ==
[2023-01-05] MEDS ORDERED: HumaLOG 300 UNITS/3 ML VIAL SC PRN (00:32)
[2023-01-05] MEDS ORDERED: Calcium Carbonate 500 MG ChewTAB PO PRN (00:32)
[2023-01-05] MEDS ORDERED: Dextrose 50% Abboject 50 ML SYRINGE SLOW IVP PRN (00:32)
[2023-01-05] MEDS ORDERED: Dextrose 5% in Water 1,000 ML IV PRN (00:32)
[2023-01-05] MEDS ORDERED: Glucagon 1 MG/ML KIT IM PRN (00:32)
[2023-01-05] MEDS ORDERED: Ketorolac Tromethamine 30 MG/ML VIAL IVP PRN (00:40)
[2023-01-05] MEDS ORDERED: Magnesium 2 GM/50 ML(in water) 2 GM in Premix 1 BAG IVPB SCH (00:45)
[2023-01-05] MEDS ORDERED: Ondansetron PF 4 MG/2 ML Vial IVP PRN ×2 (00:45→14:14)
[2023-01-05] MEDS ORDERED: Ondansetron ODT 4 MG TAB SL PRN (00:45)
[2023-01-05] MEDS ORDERED: Lactated Ringer's 1,000 ML IV SCH (00:45)
[2023-01-05] MEDS ORDERED: Lidocaine 4% Patch TD SCH (00:45)
[2023-01-05] MEDS ORDERED: Cyclobenzaprine 10 MG TAB PO SCH (00:45)
[2023-01-05] MEDS ORDERED: Acetaminophen 325 MG TAB PO PRN (00:45)
[2023-01-05] MEDS: traMADol HCl 50 MG TAB PO PRN ×2 (02:45→16:18)
[2023-01-05 05:04] LABS: #Basophils 0.1 thou/uL (0.0-0.2); #Eosinphils 0.1 thou/uL (0.0-0.7); #Monocytes 1.2 thou/uL (0.11-0.59); #Neutrophils 8.4 thou/uL (1.40-6.50); %Basophils 0.4 % (0.0-1.0); %Eosinophils 0.4 % (0.0-10.0); %Lymphocytes 12.5 % (21.0-51.0); %Monocytes 10.9 % (0.0-10.0); %Neutrophils 75.5 % (42.0-75.0); Hematocrit 42.4 % (42.0-52.0); Hemoglobin 13.1 g/dL (14.0-18.0); Mean Corpuscular HGB CONC 30.9 g/dL (32.0-36.0); Mean Corpuscular Hemoglobin 25.4 pg (27.0-31.0); Mean Corpuscular Volume 82.2 fl (78.0-98.0); Mean Platelet Volume 11.2 fL (7.4-10.4); Platelet Count 221 10x3/uL (130-400); RBC Distribution Width 16.1 % (11.5-14.5); Red Blood Cell (RBC) Count 5.16 mill/uL (4.70-6.10); White Blood Cell (WBC) Count 11.1 10x3/uL (4.8-10.8)
[2023-01-05 05:22] LABS: Anion Gap 14 mmol/L (10-20); BUN (Urea Nitrogen) 17 mg/dL (8.4-25.7); Calc. Creatinine Clearance 82 mL/min (70-130); Calcium 9.3 mg/dL (7.8-10.44); Carbon Dioxide 24 mmol/L (22-29); Chloride 104 mmol/L (98-107); Estimated GFR 80; Glucose 110 mg/dL (70-105); Sodium 138 mmol/L (136-145)
[2023-01-05] MEDS: Vancomycin HCl 750 MG in Sodium Chloride 0.9% 250 ML 250 ML IVPB SCH ×2 (09:00→21:05)
[2023-01-05] MEDS ORDERED: Vancomycin 1 GM in Premix 1 BAG IVPB SCH (09:00)
[2023-01-05] MEDS ORDERED: Magnevist 469MG/ML 20 ML VIAL ONE (11:38)
[2023-01-05] MEDS ORDERED: Transdermal Patch Removal TOP SCH (12:45)
[2023-01-05] MEDS ORDERED: Piperacillin/Tazobactam 3.375 GM in Sodium Chloride 0.9% 100 ML IVPB SCH ×2 (14:15→18:00)
[2023-01-05] MEDS: Morphine 2 MG/ML VIAL SLOW IVP PRN ×2 (14:27→21:20)
[2023-01-05] MEDS: Acetaminophen 325 MG TAB PO PRN (16:17)
[2023-01-05] MEDS: Piperacillin/Tazobactam 3.375 GM in Sodium Chloride 0.9% 100 ML IVPB SCH (21:15)
[2023-01-06] MEDS: Piperacillin/Tazobactam 3.375 GM in Sodium Chloride 0.9% 100 ML IVPB SCH ×3 (04:55→20:48)
[2023-01-06] MEDS: traMADol HCl 50 MG TAB PO PRN ×3 (05:00→17:27)
[2023-01-06] MEDS: Acetaminophen 325 MG TAB PO PRN (05:06)
[2023-01-06 05:14] LABS: #Eosinphils 0.1 thou/uL (0.0-0.7); #Neutrophils 6.9 thou/uL (1.40-6.50); %Basophils 0.4 % (0.0-1.0); %Eosinophils 1.3 % (0.0-10.0); %Lymphocytes 13.8 % (21.0-51.0); %Monocytes 10.7 % (0.0-10.0); %Neutrophils 73.6 % (42.0-75.0); Hematocrit 38.6 % (42.0-52.0); Hemoglobin 11.9 g/dL (14.0-18.0); Mean Corpuscular HGB CONC 30.8 g/dL (32.0-36.0); Mean Corpuscular Hemoglobin 25.6 pg (27.0-31.0); Mean Corpuscular Volume 83.2 fl (78.0-98.0); Platelet Count 195 10x3/uL (130-400); RBC Distribution Width 16.4 % (11.5-14.5); Red Blood Cell (RBC) Count 4.64 mill/uL (4.70-6.10); White Blood Cell (WBC) Count 9.4 10x3/uL (4.8-10.8)
[2023-01-06 05:55] LABS: Anion Gap 10 mmol/L (10-20); BUN (Urea Nitrogen) 13 mg/dL (8.4-25.7); Calc. Creatinine Clearance 90 mL/min (70-130); Calcium 8.8 mg/dL (7.8-10.44); Carbon Dioxide 22 mmol/L (22-29); Chloride 111 mmol/L (98-107); Estimated GFR 89; Glucose 97 mg/dL (70-105); Potassium 4.1 mmol/L (3.5-5.1); Sodium 139 mmol/L (136-145)
[2023-01-06 08:25] LABS: Vancomycin, Trough 9.1 ug/mL
[2023-01-06] MEDS: Morphine 2 MG/ML VIAL SLOW IVP PRN ×3 (09:15→21:58)
[2023-01-06] MEDS: Vancomycin (BATCH) 1.25 GM in Premix 1 BAG IVPB SCH ×2 (09:23→21:58)
[2023-01-06] MEDS: Carvedilol 3.125 MG TAB PO SCH (17:24)
[2023-01-06 18:04] VITALS: BMI 21.4
[2023-01-06] MEDS: Sacubitril 24MG/Valsartan 26 MG TAB PO SCH (20:47)
[2023-01-06] MEDS: Atorvastatin Calcium 10 MG TAB PO SCH (20:47)
[2023-01-06] MEDS: Gabapentin 300 MG CAP PO SCH (20:47)
[2023-01-06] MEDS: Famotidine 20 MG TAB PO SCH (20:47)
[2023-01-06] MEDS: Apixaban 5 MG TAB PO SCH (20:47)
[2023-01-07] MEDS: Piperacillin/Tazobactam 3.375 GM in Sodium Chloride 0.9% 100 ML IVPB SCH ×3 (04:02→21:45)
[2023-01-07 04:44] LABS: #Eosinphils 0.3 thou/uL (0.0-0.7); #Monocytes 0.8 thou/uL (0.11-0.59); #Neutrophils 5.4 thou/uL (1.40-6.50); %Basophils 0.5 % (0.0-1.0); %Eosinophils 3.5 % (0.0-10.0); %Lymphocytes 18.2 % (21.0-51.0); %Monocytes 10.3 % (0.0-10.0); %Neutrophils 67.2 % (42.0-75.0); Hematocrit 36.8 % (42.0-52.0); Hemoglobin 11.1 g/dL (14.0-18.0); Mean Corpuscular HGB CONC 30.2 g/dL (32.0-36.0); Mean Corpuscular Hemoglobin 25.3 pg (27.0-31.0); Platelet Count 180 10x3/uL (130-400); RBC Distribution Width 16.4 % (11.5-14.5); Red Blood Cell (RBC) Count 4.38 mill/uL (4.70-6.10)
[2023-01-07 05:08] LABS: Anion Gap 11 mmol/L (10-20); BUN (Urea Nitrogen) 9 mg/dL (8.4-25.7); Calc. Creatinine Clearance 111 mL/min (70-130); Calcium 8.8 mg/dL (7.8-10.44); Carbon Dioxide 24 mmol/L (22-29); Chloride 109 mmol/L (98-107); Estimated GFR 102; Glucose 83 mg/dL (70-105); Potassium 3.9 mmol/L (3.5-5.1); Sodium 140 mmol/L (136-145)
[2023-01-07] MEDS: Saccharomyces boulardii 250 MG CAP PO SCH (08:52)
[2023-01-07] MEDS: Aspirin 81 mg Enteric Coated Tablet PO SCH (08:52)
[2023-01-07] MEDS: Sacubitril 24MG/Valsartan 26 MG TAB PO SCH ×2 (08:52→21:45)
[2023-01-07] MEDS: Furosemide 20 MG TAB PO SCH (08:53)
[2023-01-07] MEDS: Empagliflozin 10 MG TAB PO SCH (08:53)
[2023-01-07] MEDS: Famotidine 20 MG TAB PO SCH ×2 (08:53→21:45)
[2023-01-07] MEDS: Carvedilol 3.125 MG TAB PO SCH ×2 (08:53→17:17)
[2023-01-07] MEDS: Apixaban 5 MG TAB PO SCH ×2 (08:53→21:45)
[2023-01-07] MEDS: Multivitamin W/ Minerals 1 TAB PO SCH (08:53)
[2023-01-07] MEDS: traMADol HCl 50 MG TAB PO PRN ×2 (08:59→15:40)
[2023-01-07] MEDS: Vancomycin (BATCH) 1.25 GM in Premix 1 BAG IVPB SCH ×2 (09:55→23:40)
[2023-01-07] MEDS: HumaLOG 300 UNITS/3 ML VIAL SC PRN (11:42)
[2023-01-07 20:33] LABS: Vancomycin, Trough 17.1 ug/mL
[2023-01-07] MEDS: Gabapentin 300 MG CAP PO SCH (21:45)
[2023-01-07] MEDS: Atorvastatin Calcium 10 MG TAB PO SCH (21:45)
[2023-01-08] MEDS: Piperacillin/Tazobactam 3.375 GM in Sodium Chloride 0.9% 100 ML IVPB SCH ×3 (05:00→20:24)
[2023-01-08 05:45] LABS: #Eosinphils 0.3 thou/uL (0.0-0.7); #Monocytes 0.7 thou/uL (0.11-0.59); #Neutrophils 5.4 thou/uL (1.40-6.50); %Basophils 0.5 % (0.0-1.0); %Eosinophils 3.5 % (0.0-10.0); %Lymphocytes 17.2 % (21.0-51.0); %Monocytes 9.2 % (0.0-10.0); %Neutrophils 69.3 % (42.0-75.0); Hematocrit 37.7 % (42.0-52.0); Hemoglobin 11.5 g/dL (14.0-18.0); Mean Corpuscular HGB CONC 30.5 g/dL (32.0-36.0); Mean Corpuscular Hemoglobin 25.4 pg (27.0-31.0); Mean Corpuscular Volume 83.4 fl (78.0-98.0); Mean Platelet Volume 12.1 fL (7.4-10.4); Platelet Count 188 10x3/uL (130-400); RBC Distribution Width 16.3 % (11.5-14.5); Red Blood Cell (RBC) Count 4.52 mill/uL (4.70-6.10); White Blood Cell (WBC) Count 7.8 10x3/uL (4.8-10.8)
[2023-01-08 06:12] LABS: Anion Gap 10 mmol/L (10-20); BUN (Urea Nitrogen) 10 mg/dL (8.4-25.7); Calc. Creatinine Clearance 114 mL/min (70-130); Calcium 8.9 mg/dL (7.8-10.44); Carbon Dioxide 27 mmol/L (22-29); Chloride 107 mmol/L (98-107); Estimated GFR 103; Glucose 86 mg/dL (70-105); Potassium 3.9 mmol/L (3.5-5.1); Sodium 140 mmol/L (136-145)
[2023-01-08] MEDS: Carvedilol 3.125 MG TAB PO SCH ×2 (09:30→17:01)
[2023-01-08] MEDS: Saccharomyces boulardii 250 MG CAP PO SCH (09:30)
[2023-01-08] MEDS: Empagliflozin 10 MG TAB PO SCH (09:30)
[2023-01-08] MEDS: Multivitamin W/ Minerals 1 TAB PO SCH (09:30)
[2023-01-08] MEDS: Apixaban 5 MG TAB PO SCH ×2 (09:30→20:27)
[2023-01-08] MEDS: Aspirin 81 mg Enteric Coated Tablet PO SCH (09:30)
[2023-01-08] MEDS: Furosemide 20 MG TAB PO SCH (09:30)
[2023-01-08] MEDS: Sacubitril 24MG/Valsartan 26 MG TAB PO SCH ×2 (09:30→20:26)
[2023-01-08] MEDS: Famotidine 20 MG TAB PO SCH ×2 (09:30→20:27)
[2023-01-08] MEDS: traMADol HCl 50 MG TAB PO PRN ×2 (09:36→17:00)
[2023-01-08] MEDS: Vancomycin (BATCH) 1.25 GM in Premix 1 BAG IVPB SCH (09:54)
[2023-01-08] MEDS: Acetaminophen 325 MG TAB PO PRN (14:18)
[2023-01-08] MEDS: HumaLOG 300 UNITS/3 ML VIAL SC PRN (17:01)
[2023-01-08] MEDS: Gabapentin 300 MG CAP PO SCH (20:26)
[2023-01-08] MEDS: Atorvastatin Calcium 10 MG TAB PO SCH (20:27)
[2023-01-09] MEDS: Vancomycin (BATCH) 1.25 GM in Premix 1 BAG IVPB SCH ×2 (00:37→13:55)
[2023-01-09] MEDS: traMADol HCl 50 MG TAB PO PRN ×2 (01:04→09:35)
[2023-01-09] MEDS: Piperacillin/Tazobactam 3.375 GM in Sodium Chloride 0.9% 100 ML IVPB SCH ×2 (04:06→12:30)
[2023-01-09 06:13] LABS: #Basophils 0.1 thou/uL (0.0-0.2); #Eosinphils 0.3 thou/uL (0.0-0.7); #Monocytes 0.9 thou/uL (0.11-0.59); #Neutrophils 6.9 thou/uL (1.40-6.50); %Basophils 0.5 % (0.0-1.0); %Eosinophils 2.9 % (0.0-10.0); %Lymphocytes 15.1 % (21.0-51.0); %Monocytes 9.1 % (0.0-10.0); %Neutrophils 72.2 % (42.0-75.0); Hematocrit 38.2 % (42.0-52.0); Hemoglobin 11.6 g/dL (14.0-18.0); Mean Corpuscular HGB CONC 30.4 g/dL (32.0-36.0); Mean Corpuscular Hemoglobin 25.7 pg (27.0-31.0); Mean Corpuscular Volume 84.5 fl (78.0-98.0); Mean Platelet Volume 11.3 fL (7.4-10.4); Platelet Count 195 10x3/uL (130-400); RBC Distribution Width 16.5 % (11.5-14.5); Red Blood Cell (RBC) Count 4.52 mill/uL (4.70-6.10); White Blood Cell (WBC) Count 9.5 10x3/uL (4.8-10.8)
[2023-01-09 06:45] LABS: Anion Gap 12 mmol/L (10-20); BUN (Urea Nitrogen) 11 mg/dL (8.4-25.7); Calc. Creatinine Clearance 100 mL/min (70-130); Calcium 8.8 mg/dL (7.8-10.44); Carbon Dioxide 25 mmol/L (22-29); Chloride 108 mmol/L (98-107); Estimated GFR 99; Glucose 104 mg/dL (70-105); Potassium 3.9 mmol/L (3.5-5.1); Sodium 141 mmol/L (136-145)
[2023-01-09] MEDS: Furosemide 20 MG TAB PO SCH (09:32)
[2023-01-09] MEDS: Saccharomyces boulardii 250 MG CAP PO SCH (09:32)
[2023-01-09] MEDS: Famotidine 20 MG TAB PO SCH ×2 (09:32→21:09)
[2023-01-09] MEDS: Carvedilol 3.125 MG TAB PO SCH ×2 (09:32→18:02)
[2023-01-09] MEDS: Empagliflozin 10 MG TAB PO SCH (09:32)
[2023-01-09] MEDS: Multivitamin W/ Minerals 1 TAB PO SCH (09:32)
[2023-01-09] MEDS: Aspirin 81 mg Enteric Coated Tablet PO SCH (09:32)
[2023-01-09] MEDS: Sacubitril 24MG/Valsartan 26 MG TAB PO SCH ×2 (09:32→21:09)
[2023-01-09] MEDS: Apixaban 5 MG TAB PO SCH ×2 (09:32→21:09)
[2023-01-09] MEDS ORDERED: Vancomycin (BATCH) 1.25 GM in Premix 1 BAG IVPB SCH ×2 (12:00→13:00)
[2023-01-09 12:48] LABS: Vancomycin, Trough 17.1 ug/mL
[2023-01-09] MEDS: Gabapentin 300 MG CAP PO SCH (21:08)
[2023-01-09] MEDS: Atorvastatin Calcium 10 MG TAB PO SCH (21:09)
[2023-01-10] MEDS: Vancomycin (BATCH) 1.25 GM in Premix 1 BAG IVPB SCH ×2 (01:23→12:56)
[2023-01-10] MEDS: traMADol HCl 50 MG TAB PO PRN ×3 (04:47→20:17)
[2023-01-10 05:19] LABS: Hematocrit 38.1 % (42.0-52.0); Hemoglobin 11.8 g/dL (14.0-18.0); Mean Corpuscular Hemoglobin 25.6 pg (27.0-31.0); Mean Corpuscular Volume 82.6 fl (78.0-98.0); Mean Platelet Volume 11.8 fL (7.4-10.4); Platelet Count 192 10x3/uL (130-400); RBC Distribution Width 16.6 % (11.5-14.5); Red Blood Cell (RBC) Count 4.61 mill/uL (4.70-6.10); White Blood Cell (WBC) Count 9.6 10x3/uL (4.8-10.8)
[2023-01-10 05:22] LABS: Delete Auto Diff?? YES; Manual Diff?? YES
[2023-01-10 05:42] LABS: Anion Gap 12 mmol/L (10-20); BUN (Urea Nitrogen) 10 mg/dL (8.4-25.7); Calc. Creatinine Clearance 117 mL/min (70-130); Calcium 8.7 mg/dL (7.8-10.44); Carbon Dioxide 25 mmol/L (22-29); Chloride 107 mmol/L (98-107); Estimated GFR 104; Glucose 98 mg/dL (70-105); Potassium 3.8 mmol/L (3.5-5.1); Sodium 140 mmol/L (136-145)
[2023-01-10 05:44] LABS: Band 1 % (5-11); CellaVision Operator ID LAB.CLH1; Eosinophils 6 % (0-10); Hypochromia SLIGHT = 6-15 cells HPF (0-5); Lymphocytes 12 % (21-51); Monocytes 9 % (0-10); Neutrophil 71 % (42-75); Platelet Adequacy Comment Platelets Normal; Polychromasia SLIGHT = 2-3 cells HPF (0-2); Reactive Lymphocytes 1 % (0-10); Total Cell Count 100
[2023-01-10] MEDS: Sacubitril 24MG/Valsartan 26 MG TAB PO SCH ×2 (09:48→20:17)
[2023-01-10] MEDS: Furosemide 20 MG TAB PO SCH (09:48)
[2023-01-10] MEDS: Aspirin 81 mg Enteric Coated Tablet PO SCH (09:48)
[2023-01-10] MEDS: Famotidine 20 MG TAB PO SCH ×2 (09:48→20:16)
[2023-01-10] MEDS: Apixaban 5 MG TAB PO SCH ×2 (09:48→20:17)
[2023-01-10] MEDS: Saccharomyces boulardii 250 MG CAP PO SCH (09:48)
[2023-01-10] MEDS: Empagliflozin 10 MG TAB PO SCH (09:48)
[2023-01-10] MEDS: Carvedilol 3.125 MG TAB PO SCH ×2 (09:48→17:38)
[2023-01-10] MEDS: Multivitamin W/ Minerals 1 TAB PO SCH (09:48)
[2023-01-10] MEDS: Atorvastatin Calcium 10 MG TAB PO SCH (20:17)
[2023-01-10] MEDS: Gabapentin 300 MG CAP PO SCH (20:18)
[2023-01-11 00:43] LABS: Vancomycin, Trough 19.5 ug/mL
[2023-01-11] MEDS: Vancomycin (BATCH) 1.25 GM in Premix 1 BAG IVPB SCH ×2 (01:32→14:58)
[2023-01-11] MEDS: traMADol HCl 50 MG TAB PO PRN ×3 (03:14→20:46)
[2023-01-11 05:08] LABS: #Basophils 0.1 thou/uL (0.0-0.2); #Eosinphils 0.3 thou/uL (0.0-0.7); #Monocytes 0.7 thou/uL (0.11-0.59); #Neutrophils 5.2 thou/uL (1.40-6.50); %Basophils 0.8 % (0.0-1.0); %Eosinophils 3.7 % (0.0-10.0); %Lymphocytes 17.7 % (21.0-51.0); %Monocytes 8.6 % (0.0-10.0); %Neutrophils 69.1 % (42.0-75.0); Hemoglobin 12.1 g/dL (14.0-18.0); Mean Corpuscular HGB CONC 30.3 g/dL (32.0-36.0); Mean Corpuscular Hemoglobin 25.4 pg (27.0-31.0); Mean Platelet Volume 10.9 fL (7.4-10.4); Platelet Count 206 10x3/uL (130-400); RBC Distribution Width 16.7 % (11.5-14.5); Red Blood Cell (RBC) Count 4.76 mill/uL (4.70-6.10); White Blood Cell (WBC) Count 7.6 10x3/uL (4.8-10.8)
[2023-01-11 05:33] LABS: Anion Gap 10 mmol/L (10-20); BUN (Urea Nitrogen) 11 mg/dL (8.4-25.7); Calc. Creatinine Clearance 108 mL/min (70-130); Calcium 9.1 mg/dL (7.8-10.44); Carbon Dioxide 26 mmol/L (22-29); Chloride 106 mmol/L (98-107); Estimated GFR 102; Glucose 106 mg/dL (70-105); Potassium 4.1 mmol/L (3.5-5.1); Sodium 138 mmol/L (136-145)
[2023-01-11] MEDS: Multivitamin W/ Minerals 1 TAB PO SCH (09:30)
[2023-01-11] MEDS: Aspirin 81 mg Enteric Coated Tablet PO SCH (09:30)
[2023-01-11] MEDS: Sacubitril 24MG/Valsartan 26 MG TAB PO SCH ×2 (09:31→20:42)
[2023-01-11] MEDS: Saccharomyces boulardii 250 MG CAP PO SCH (09:32)
[2023-01-11] MEDS: Apixaban 5 MG TAB PO SCH ×2 (09:32→20:42)
[2023-01-11] MEDS: Furosemide 20 MG TAB PO SCH (09:32)
[2023-01-11] MEDS: Famotidine 20 MG TAB PO SCH ×2 (09:32→20:42)
[2023-01-11] MEDS: Carvedilol 3.125 MG TAB PO SCH ×2 (09:33→17:51)
[2023-01-11] MEDS: Empagliflozin 10 MG TAB PO SCH (09:33)
[2023-01-11] MEDS ORDERED: Lidocaine 1% PF 5 ML VIAL ONE (13:06)
[2023-01-11] MEDS ORDERED: Sodium Bicarbonate 2.5 MEQ/5 ML VIAL ONE (13:06)
[2023-01-11] MEDS: Gabapentin 300 MG CAP PO SCH (20:42)
[2023-01-11] MEDS: Atorvastatin Calcium 10 MG TAB PO SCH (20:42)
[2023-01-12] MEDS: Vancomycin (BATCH) 1.25 GM in Premix 1 BAG IVPB SCH ×2 (01:31→13:31)
[2023-01-12 04:44] LABS: #Basophils 0.1 thou/uL (0.0-0.2); #Eosinphils 0.3 thou/uL (0.0-0.7); #Monocytes 0.8 thou/uL (0.11-0.59); #Neutrophils 6.6 thou/uL (1.40-6.50); %Basophils 0.7 % (0.0-1.0); %Eosinophils 3.6 % (0.0-10.0); %Lymphocytes 12.2 % (21.0-51.0); %Monocytes 9.3 % (0.0-10.0); Hematocrit 39.6 % (42.0-52.0); Hemoglobin 12.1 g/dL (14.0-18.0); Mean Corpuscular HGB CONC 30.6 g/dL (32.0-36.0); Mean Corpuscular Hemoglobin 25.7 pg (27.0-31.0); Mean Corpuscular Volume 84.3 fl (78.0-98.0); Mean Platelet Volume 10.6 fL (7.4-10.4); Platelet Count 207 10x3/uL (130-400); RBC Distribution Width 16.7 % (11.5-14.5); White Blood Cell (WBC) Count 8.9 10x3/uL (4.8-10.8)
[2023-01-12 05:31] LABS: Anion Gap 10 mmol/L (10-20); BUN (Urea Nitrogen) 12 mg/dL (8.4-25.7); Calc. Creatinine Clearance 115 mL/min (70-130); Calcium 9.1 mg/dL (7.8-10.44); Carbon Dioxide 26 mmol/L (22-29); Chloride 104 mmol/L (98-107); Estimated GFR 104; Glucose 93 mg/dL (70-105); Sodium 136 mmol/L (136-145)
[2023-01-12] MEDS: traMADol HCl 50 MG TAB PO PRN (08:40)
[2023-01-12] MEDS: Sacubitril 24MG/Valsartan 26 MG TAB PO SCH ×2 (08:41→22:44)
[2023-01-12] MEDS: Empagliflozin 10 MG TAB PO SCH (08:42)
[2023-01-12] MEDS: Apixaban 5 MG TAB PO SCH ×2 (08:42→22:42)
[2023-01-12] MEDS: Saccharomyces boulardii 250 MG CAP PO SCH (08:42)
[2023-01-12] MEDS: Furosemide 20 MG TAB PO SCH (08:42)
[2023-01-12] MEDS: Famotidine 20 MG TAB PO SCH ×2 (08:42→22:41)
[2023-01-12] MEDS: Multivitamin W/ Minerals 1 TAB PO SCH (08:42)
[2023-01-12] MEDS: Carvedilol 3.125 MG TAB PO SCH ×2 (08:43→17:25)
[2023-01-12] MEDS: Aspirin 81 mg Enteric Coated Tablet PO SCH (09:21)
[2023-01-12] MEDS: Morphine 2 MG/ML VIAL SLOW IVP PRN ×2 (13:40→22:50)
[2023-01-12 15:22] LABS: WBC/Nucleated-Auto (BF) 1744 /cu.mm
[2023-01-12 15:33] LABS: BF Color Red; Body Fluid Source Synovial Fluid; Clarity Cloudy/Turbid (Clear); Tube # SYRINGE
[2023-01-12 15:40] LABS: BF Segmented Neutrophils 56 %; Cell Count Non Hematic 27 %; Lymphocytes 17 %
[2023-01-12] MEDS: Atorvastatin Calcium 10 MG TAB PO SCH (22:41)
[2023-01-12] MEDS: Gabapentin 300 MG CAP PO SCH (22:42)
[2023-01-13] MEDS: Vancomycin (BATCH) 1.25 GM in Premix 1 BAG IVPB SCH ×2 (02:07→13:13)
[2023-01-13 05:06] LABS: #Basophils 0.1 thou/uL (0.0-0.2); #Eosinphils 0.3 thou/uL (0.0-0.7); #Monocytes 0.9 thou/uL (0.11-0.59); %Basophils 0.6 % (0.0-1.0); %Eosinophils 2.9 % (0.0-10.0); %Lymphocytes 14.2 % (21.0-51.0); %Monocytes 9.2 % (0.0-10.0); %Neutrophils 72.9 % (42.0-75.0); Hematocrit 40.9 % (42.0-52.0); Hemoglobin 12.3 g/dL (14.0-18.0); Mean Corpuscular HGB CONC 30.1 g/dL (32.0-36.0); Mean Corpuscular Volume 83.1 fl (78.0-98.0); Mean Platelet Volume 10.9 fL (7.4-10.4); Platelet Count 233 10x3/uL (130-400); RBC Distribution Width 16.6 % (11.5-14.5); Red Blood Cell (RBC) Count 4.92 mill/uL (4.70-6.10); White Blood Cell (WBC) Count 9.7 10x3/uL (4.8-10.8)
[2023-01-13 05:42] LABS: Anion Gap 15 mmol/L (10-20); BUN (Urea Nitrogen) 13 mg/dL (8.4-25.7); Calc. Creatinine Clearance 111 mL/min (70-130); Calcium 9.2 mg/dL (7.8-10.44); Carbon Dioxide 23 mmol/L (22-29); Chloride 107 mmol/L (98-107); Estimated GFR 102; Glucose 92 mg/dL (70-105); Sodium 141 mmol/L (136-145)
[2023-01-13] MEDS: Sacubitril 24MG/Valsartan 26 MG TAB PO SCH ×2 (09:35→20:56)
[2023-01-13] MEDS: Saccharomyces boulardii 250 MG CAP PO SCH (09:35)
[2023-01-13] MEDS: Furosemide 20 MG TAB PO SCH (09:35)
[2023-01-13] MEDS: Multivitamin W/ Minerals 1 TAB PO SCH (09:35)
[2023-01-13] MEDS: Aspirin 81 mg Enteric Coated Tablet PO SCH (09:35)
[2023-01-13] MEDS: Empagliflozin 10 MG TAB PO SCH (09:36)
[2023-01-13] MEDS: Famotidine 20 MG TAB PO SCH ×2 (09:36→20:56)
[2023-01-13] MEDS: Apixaban 5 MG TAB PO SCH ×2 (09:36→20:56)
[2023-01-13] MEDS: Carvedilol 3.125 MG TAB PO SCH ×2 (09:36→18:12)
[2023-01-13] MEDS: Morphine 2 MG/ML VIAL SLOW IVP PRN (09:46)
[2023-01-13] MEDS: traMADol HCl 50 MG TAB PO PRN ×2 (13:24→21:22)
[2023-01-13] MEDS: Gabapentin 300 MG CAP PO SCH (20:56)
[2023-01-13] MEDS: Atorvastatin Calcium 10 MG TAB PO SCH (20:56)
[2023-01-14] MEDS: Vancomycin (BATCH) 1.25 GM in Premix 1 BAG IVPB SCH (01:19)
[2023-01-14 05:56] LABS: #Basophils 0.1 thou/uL (0.0-0.2); #Eosinphils 0.2 thou/uL (0.0-0.7); #Monocytes 0.8 thou/uL (0.11-0.59); %Basophils 0.6 % (0.0-1.0); %Eosinophils 2.5 % (0.0-10.0); %Lymphocytes 14.7 % (21.0-51.0); %Monocytes 8.4 % (0.0-10.0); %Neutrophils 73.5 % (42.0-75.0); Hemoglobin 13.3 g/dL (14.0-18.0); Mean Corpuscular HGB CONC 30.2 g/dL (32.0-36.0); Mean Corpuscular Hemoglobin 25.5 pg (27.0-31.0); Mean Corpuscular Volume 84.5 fl (78.0-98.0); Mean Platelet Volume 10.9 fL (7.4-10.4); Platelet Count 256 10x3/uL (130-400); RBC Distribution Width 16.8 % (11.5-14.5); Red Blood Cell (RBC) Count 5.21 mill/uL (4.70-6.10); White Blood Cell (WBC) Count 9.5 10x3/uL (4.8-10.8)
[2023-01-14 06:24] LABS: Anion Gap 13 mmol/L (10-20); BUN (Urea Nitrogen) 15 mg/dL (8.4-25.7); Calc. Creatinine Clearance 107 mL/min (70-130); Calcium 9.5 mg/dL (7.8-10.44); Carbon Dioxide 24 mmol/L (22-29); Chloride 106 mmol/L (98-107); Estimated GFR 101; Glucose 99 mg/dL (70-105); Sodium 139 mmol/L (136-145)
[2023-01-14] MEDS: Multivitamin W/ Minerals 1 TAB PO SCH (09:09)
[2023-01-14] MEDS: Saccharomyces boulardii 250 MG CAP PO SCH (09:09)
[2023-01-14] MEDS: Aspirin 81 mg Enteric Coated Tablet PO SCH (09:09)
[2023-01-14] MEDS: traMADol HCl 50 MG TAB PO PRN ×2 (09:09→15:49)
[2023-01-14] MEDS: Sacubitril 24MG/Valsartan 26 MG TAB PO SCH ×2 (09:09→20:43)
[2023-01-14] MEDS: Furosemide 20 MG TAB PO SCH (09:09)
[2023-01-14] MEDS: Empagliflozin 10 MG TAB PO SCH (09:10)
[2023-01-14] MEDS: Carvedilol 3.125 MG TAB PO SCH ×2 (09:10→17:07)
[2023-01-14] MEDS: Famotidine 20 MG TAB PO SCH ×2 (09:10→20:43)
[2023-01-14] MEDS: Apixaban 5 MG TAB PO SCH ×2 (09:10→20:44)
[2023-01-14 12:05] LABS: Vancomycin, Trough 21.6 ug/mL
[2023-01-14] MEDS: Vancomycin 1 GM in Premix 1 BAG IVPB SCH (15:49)
[2023-01-14] MEDS: Gabapentin 300 MG CAP PO SCH (20:43)
[2023-01-14] MEDS: Atorvastatin Calcium 10 MG TAB PO SCH (20:43)
[2023-01-15] MEDS: Vancomycin 1 GM in Premix 1 BAG IVPB SCH (02:54)
[2023-01-15 05:26] LABS: #Basophils 0.1 thou/uL (0.0-0.2); #Eosinphils 0.3 thou/uL (0.0-0.7); #Monocytes 0.8 thou/uL (0.11-0.59); #Neutrophils 7.1 thou/uL (1.40-6.50); %Basophils 0.5 % (0.0-1.0); %Eosinophils 2.6 % (0.0-10.0); %Lymphocytes 13.8 % (21.0-51.0); %Monocytes 8.1 % (0.0-10.0); %Neutrophils 74.9 % (42.0-75.0); Hematocrit 41.3 % (42.0-52.0); Hemoglobin 12.7 g/dL (14.0-18.0); Mean Corpuscular HGB CONC 30.8 g/dL (32.0-36.0); Mean Corpuscular Hemoglobin 25.7 pg (27.0-31.0); Mean Corpuscular Volume 83.6 fl (78.0-98.0); Platelet Count 249 10x3/uL (130-400); RBC Distribution Width 16.8 % (11.5-14.5); Red Blood Cell (RBC) Count 4.94 mill/uL (4.70-6.10); White Blood Cell (WBC) Count 9.5 10x3/uL (4.8-10.8)
[2023-01-15 05:48] LABS: Anion Gap 10 mmol/L (10-20); BUN (Urea Nitrogen) 14 mg/dL (8.4-25.7); Calc. Creatinine Clearance 111 mL/min (70-130); Carbon Dioxide 25 mmol/L (22-29); Chloride 104 mmol/L (98-107); Estimated GFR 102; Glucose 153 mg/dL (70-105); Potassium 3.6 mmol/L (3.5-5.1); Sodium 135 mmol/L (136-145)
[2023-01-15] MEDS: Saccharomyces boulardii 250 MG CAP PO SCH (08:21)
[2023-01-15] MEDS: Aspirin 81 mg Enteric Coated Tablet PO SCH (08:21)
[2023-01-15] MEDS: Carvedilol 3.125 MG TAB PO SCH ×2 (08:22→16:30)
[2023-01-15] MEDS: traMADol HCl 50 MG TAB PO PRN ×3 (08:22→22:51)
[2023-01-15] MEDS: Furosemide 20 MG TAB PO SCH (08:22)
[2023-01-15] MEDS: Empagliflozin 10 MG TAB PO SCH (08:22)
[2023-01-15] MEDS: Sacubitril 24MG/Valsartan 26 MG TAB PO SCH ×2 (08:22→20:45)
[2023-01-15] MEDS: Multivitamin W/ Minerals 1 TAB PO SCH (08:22)
[2023-01-15] MEDS: Famotidine 20 MG TAB PO SCH ×2 (08:22→20:45)
[2023-01-15] MEDS: Apixaban 5 MG TAB PO SCH ×2 (08:22→20:45)
[2023-01-15] MEDS: HumaLOG 300 UNITS/3 ML VIAL SC PRN (16:30)
[2023-01-15] MEDS: Doxycycline 100 MG CAP PO SCH (20:44)
[2023-01-15] MEDS: Gabapentin 300 MG CAP PO SCH (20:44)
[2023-01-15] MEDS: Atorvastatin Calcium 10 MG TAB PO SCH (20:45)
[2023-01-16] MEDS: Morphine 2 MG/ML VIAL SLOW IVP PRN (00:10)
[2023-01-16 05:01] LABS: #Basophils 0.1 thou/uL (0.0-0.2); #Eosinphils 0.3 thou/uL (0.0-0.7); %Basophils 0.6 % (0.0-1.0); %Eosinophils 3.1 % (0.0-10.0); %Lymphocytes 15.5 % (21.0-51.0); %Monocytes 9.9 % (0.0-10.0); %Neutrophils 70.5 % (42.0-75.0); Hematocrit 39.7 % (42.0-52.0); Mean Corpuscular HGB CONC 30.2 g/dL (32.0-36.0); Mean Corpuscular Hemoglobin 25.5 pg (27.0-31.0); Mean Corpuscular Volume 84.3 fl (78.0-98.0); Platelet Count 260 10x3/uL (130-400); RBC Distribution Width 16.8 % (11.5-14.5); Red Blood Cell (RBC) Count 4.71 mill/uL (4.70-6.10)
[2023-01-16 05:25] LABS: Anion Gap 12 mmol/L (10-20); BUN (Urea Nitrogen) 14 mg/dL (8.4-25.7); Calc. Creatinine Clearance 96 mL/min (70-130); Calcium 8.8 mg/dL (7.8-10.44); Carbon Dioxide 25 mmol/L (22-29); Chloride 105 mmol/L (98-107); Estimated GFR 97; Glucose 113 mg/dL (70-105); Sodium 138 mmol/L (136-145)
[2023-01-16] MEDS: traMADol HCl 50 MG TAB PO PRN ×2 (09:13→16:50)
[2023-01-16] MEDS: Sacubitril 24MG/Valsartan 26 MG TAB PO SCH ×2 (09:14→20:26)
[2023-01-16] MEDS: Aspirin 81 mg Enteric Coated Tablet PO SCH (09:14)
[2023-01-16] MEDS: Multivitamin W/ Minerals 1 TAB PO SCH (09:14)
[2023-01-16] MEDS: Famotidine 20 MG TAB PO SCH ×2 (09:14→20:26)
[2023-01-16] MEDS: Saccharomyces boulardii 250 MG CAP PO SCH (09:14)
[2023-01-16] MEDS: Apixaban 5 MG TAB PO SCH ×2 (09:14→20:27)
[2023-01-16] MEDS: Empagliflozin 10 MG TAB PO SCH (09:14)
[2023-01-16] MEDS: Doxycycline 100 MG CAP PO SCH ×2 (09:14→20:27)
[2023-01-16] MEDS: Carvedilol 3.125 MG TAB PO SCH ×2 (09:14→16:51)
[2023-01-16] MEDS: Furosemide 20 MG TAB PO SCH (09:14)
[2023-01-16] MEDS: Acetaminophen 325 MG TAB PO PRN (20:25)
[2023-01-16] MEDS: Gabapentin 300 MG CAP PO SCH (20:26)
[2023-01-16] MEDS: Atorvastatin Calcium 10 MG TAB PO SCH (20:26)
[2023-01-17] MEDS: traMADol HCl 50 MG TAB PO PRN ×2 (09:29→17:32)
[2023-01-17] MEDS: Empagliflozin 10 MG TAB PO SCH (09:30)
[2023-01-17] MEDS: Saccharomyces boulardii 250 MG CAP PO SCH (09:30)
[2023-01-17] MEDS: Sacubitril 24MG/Valsartan 26 MG TAB PO SCH ×2 (09:30→21:20)
[2023-01-17] MEDS: Aspirin 81 mg Enteric Coated Tablet PO SCH (09:30)
[2023-01-17] MEDS: Apixaban 5 MG TAB PO SCH ×2 (09:30→21:20)
[2023-01-17] MEDS: Multivitamin W/ Minerals 1 TAB PO SCH (09:30)
[2023-01-17] MEDS: Furosemide 20 MG TAB PO SCH (09:30)
[2023-01-17] MEDS: Famotidine 20 MG TAB PO SCH ×2 (09:31→21:20)
[2023-01-17] MEDS: Doxycycline 100 MG CAP PO SCH ×2 (09:31→21:19)
[2023-01-17] MEDS: Carvedilol 3.125 MG TAB PO SCH ×2 (11:27→17:30)
[2023-01-17 20:10] VITALS: TEMP 97.8
[2023-01-17] MEDS: Atorvastatin Calcium 10 MG TAB PO SCH (21:19)
[2023-01-17] MEDS: Gabapentin 300 MG CAP PO SCH (21:20)
[2023-01-17] MEDS: Acetaminophen 325 MG TAB PO PRN (21:21)
[2023-01-18] MEDS: traMADol HCl 50 MG TAB PO PRN ×3 (00:11→14:20)
[2023-01-18 05:34] LABS: #Basophils 0.1 thou/uL (0.0-0.2); #Eosinphils 0.3 thou/uL (0.0-0.7); #Monocytes 0.8 thou/uL (0.11-0.59); #Neutrophils 6.6 thou/uL (1.40-6.50); %Basophils 0.8 % (0.0-1.0); %Eosinophils 3.1 % (0.0-10.0); %Lymphocytes 15.2 % (21.0-51.0); %Monocytes 8.3 % (0.0-10.0); %Neutrophils 72.3 % (42.0-75.0); Hematocrit 41.5 % (42.0-52.0); Hemoglobin 12.6 g/dL (14.0-18.0); Mean Corpuscular HGB CONC 30.4 g/dL (32.0-36.0); Mean Corpuscular Hemoglobin 25.6 pg (27.0-31.0); Mean Corpuscular Volume 84.3 fl (78.0-98.0); Mean Platelet Volume 11.2 fL (7.4-10.4); Platelet Count 296 10x3/uL (130-400); RBC Distribution Width 16.9 % (11.5-14.5); Red Blood Cell (RBC) Count 4.92 mill/uL (4.70-6.10); White Blood Cell (WBC) Count 9.1 10x3/uL (4.8-10.8)
[2023-01-18 05:54] LABS: Anion Gap 11 mmol/L (10-20); BUN (Urea Nitrogen) 16 mg/dL (8.4-25.7); Calc. Creatinine Clearance 95 mL/min (70-130); Calcium 9.3 mg/dL (7.8-10.44); Carbon Dioxide 25 mmol/L (22-29); Chloride 105 mmol/L (98-107); Estimated GFR 96; Glucose 166 mg/dL (70-105); Potassium 3.9 mmol/L (3.5-5.1); Sodium 137 mmol/L (136-145)
[2023-01-18] MEDS: Carvedilol 3.125 MG TAB PO SCH (08:35)
[2023-01-18] MEDS: Sacubitril 24MG/Valsartan 26 MG TAB PO SCH (08:35)
[2023-01-18] MEDS: Famotidine 20 MG TAB PO SCH (08:35)
[2023-01-18] MEDS: Apixaban 5 MG TAB PO SCH (08:35)
[2023-01-18] MEDS: Aspirin 81 mg Enteric Coated Tablet PO SCH (08:35)
[2023-01-18] MEDS: Saccharomyces boulardii 250 MG CAP PO SCH (08:35)
[2023-01-18] MEDS: Furosemide 20 MG TAB PO SCH (08:35)
[2023-01-18] MEDS: Doxycycline 100 MG CAP PO SCH (08:35)
[2023-01-18] MEDS: Multivitamin W/ Minerals 1 TAB PO SCH (08:35)
[2023-01-18] MEDS: Empagliflozin 10 MG TAB PO SCH (08:36)
[2023-01-18 08:41] VITALS: BP 107/50
[2023-01-18] MEDS ORDERED: Gabapentin 300 MG CAP PO SCH (15:00)
== END 2023-01-18 15:39 | DRG 638 ==
LOC: INTOOBSV 23:51 → 2NO 23:51 → OBSVTOIN 01-06 13:29 → MSONC 01-08 17:31
PROVIDERS: ADMIT Family Medicine; ATTEND Internal Medicine
PROC: 0R9K3ZX Drainage of Left Shoulder Joint, Percutaneous Approach, Diagnostic (ICD-10-PCS; principal; 2023-01-11)
DX: E11.69 Type 2 diabetes mellitus with other specified complication (principal); I13.0 Hypertensive heart and chronic kidney disease with heart failure and stage 1 through stage 4 chronic kidney disease, or unspecified chronic kidney disease; M46.22 Osteomyelitis of vertebra, cervical region; I50.22 Chronic systolic (congestive) heart failure; I42.9 Cardiomyopathy, unspecified; M12.812 Other specific arthropathies, not elsewhere classified, left shoulder; M75.101 Unspecified rotator cuff tear or rupture of right shoulder, not specified as traumatic; M25.412 Effusion, left shoulder; E11.618 Type 2 diabetes mellitus with other diabetic arthropathy; M46.42 Discitis, unspecified, cervical region; E11.22 Type 2 diabetes mellitus with diabetic chronic kidney disease; N18.30 Chronic kidney disease, stage 3 unspecified; M10.9 Gout, unspecified; E83.42 Hypomagnesemia; I45.81 Long QT syndrome; E78.5 Hyperlipidemia, unspecified; L03.012 Cellulitis of left finger; I48.0 Paroxysmal atrial fibrillation; M12.811 Other specific arthropathies, not elsewhere classified, right shoulder; M75.102 Unspecified rotator cuff tear or rupture of left shoulder, not specified as traumatic; E11.40 Type 2 diabetes mellitus with diabetic neuropathy, unspecified; E11.51 Type 2 diabetes mellitus with diabetic peripheral angiopathy without gangrene; Z89.512 Acquired absence of left leg below knee; Z89.511 Acquired absence of right leg below knee; Z88.1 Allergy status to other antibiotic agents; Z79.82 Long term (current) use of aspirin; Z79.899 Other long term (current) drug therapy; Z98.890 Other specified postprocedural states; Z88.0 Allergy status to penicillin
CPT/HCPCS: 36415; 36416; 72050; 72156; 76942; 80048; 80202; 84157; 85025; 85060; 87070; 87076; 87149; 87205; 89051; 89060; 96365; 96366; 96375; 96376; A9579; G0378; J1815; J1885; J2272; J2405; J2543; J3370; J3370-JW; J3475; J3490; J7050; J7120

== ENCOUNTER 2023-04-12 10:31 | Day surgery (SDC) | payer OTHER ==
[2023-04-11 12:07] VITALS: BMI 21.9
[2023-04-12] MEDS ORDERED: CEFAZOLIN 2 GM VIAL ONE (11:43)
[2023-04-12] MEDS ORDERED: Sodium Chloride 0.9% 100 ML ONE (11:43)
[2023-04-12] MEDS ORDERED: EPINEPHrine 1 MG/ML VIAL ONE (11:50)
[2023-04-12] MEDS ORDERED: Bupivacaine 0.25% HCL 30 ML VIAL ONE (11:50)
[2023-04-12] MEDS ORDERED: Lidocaine 1% (PF) 30 ML VIAL ONE (11:50)
[2023-04-12] MEDS ORDERED: Famotidine/PF 20 mg/2ml Vial ONE (12:17)
[2023-04-12] MEDS ORDERED: Etomidate 40 MG (20 mL) VIAL ONE (12:19)
[2023-04-12] MEDS ORDERED: Vasopressin 20 UNITS/ML VIAL ONE (12:19)
[2023-04-12] MEDS ORDERED: Ondansetron PF 4 MG/2 ML Vial ONE (12:22)
[2023-04-12] MEDS ORDERED: Lidocaine 1% PF 5 ML VIAL ONE (12:22)
[2023-04-12] MEDS ORDERED: Midazolam HCl 2 mg/2 ml Vial ONE (12:24)
[2023-04-12] MEDS ORDERED: fentaNYL 50 mcg/mL 1 mL Vial ONE (12:24)
[2023-04-12] MEDS ORDERED: Esmolol 100 MG/10 ML VIAL ONE (12:43)
[2023-04-12] MEDS ORDERED: Phenylephrine 10 MG/ML VIAL ONE (12:48)
== END 2023-04-12 15:45 | disposition home or self-care (01) ==
LOC: SDC 10:31
PROVIDERS: ATTEND Surgery Surgery of the Hand
PROC: 0X6P0Z3 Detachment at Left Index Finger, Low, Open Approach (ICD-10-PCS; principal; 2023-04-12)
PROC: 0X6N0Z3 Detachment at Right Index Finger, Low, Open Approach (ICD-10-PCS; principal; 2023-04-12)
PROC: 0X6Q0Z3 Detachment at Right Middle Finger, Low, Open Approach (ICD-10-PCS; principal; 2023-04-12)
DX: M86.9 Osteomyelitis, unspecified (principal); I73.9 Peripheral vascular disease, unspecified; E11.51 Type 2 diabetes mellitus with diabetic peripheral angiopathy without gangrene; Z88.1 Allergy status to other antibiotic agents; Z79.01 Long term (current) use of anticoagulants; Z79.84 Long term (current) use of oral hypoglycemic drugs; Z79.4 Long term (current) use of insulin; Z79.2 Long term (current) use of antibiotics; Z79.899 Other long term (current) drug therapy
CPT/HCPCS: 36416; 87070; 87076; 87077; 87186; 87205; J0171; J0665; J2001; J2250; J2371; J2405; J3010; J3490; S0028

== ENCOUNTER 2023-07-25 10:33 | Day surgery (SDC) | payer OTHER ==
[2023-07-25] MEDS ORDERED: PROPOFOL 20 ML ONE (11:41)
[2023-07-25] MEDS ORDERED: fentaNYL 50 mcg/mL 1 mL Vial ONE (11:41)
[2023-07-25] MEDS ORDERED: Lidocaine 1% PF 5 ML VIAL ONE (11:43)
[2023-07-25] MEDS ORDERED: CEFAZOLIN 2 GM VIAL ONE (12:02)
[2023-07-25] MEDS ORDERED: Sodium Chloride 0.9% 100 ML ONE (12:02)
[2023-07-25] MEDS ORDERED: Lidocaine 1% (PF) 30 ML VIAL ONE (12:15)
[2023-07-25] MEDS ORDERED: Bupivacaine 0.25% HCL 30 ML VIAL ONE (12:15)
[2023-07-25] MEDS ORDERED: PHENYLEPHRINE-NS 100 MCG/ML 10 ML SYRINGE ONE (12:54)
[2023-07-25] MEDS ORDERED: Ondansetron PF 4 MG/2 ML Vial ONE (12:54)
[2023-07-25] MEDS ORDERED: ePHEDrine Sulfate 50 MG/10 ML VIAL ONE (13:07)
[2023-07-25] MEDS ORDERED: fentaNYL PF 100 MCG/2 ML SYRINGE ONE (14:09)
[2023-07-25] MEDS ORDERED: HYDROmorphone 0.5 MG/0.5 ML SYRINGE ONE ×2 (14:09→14:32)
[2023-07-25] MEDS ORDERED: HYDROcodone/Acetaminophen 5/325 mg Tablet ONE (15:17)
== END 2023-07-25 16:34 | disposition home or self-care (01) ==
LOC: SDC 10:33
PROVIDERS: ATTEND Surgery Surgery of the Hand
PROC: 0X6N0Z1 Detachment at Right Index Finger, High, Open Approach (ICD-10-PCS; principal; 2023-07-25)
DX: M86.9 Osteomyelitis, unspecified (principal); E11.51 Type 2 diabetes mellitus with diabetic peripheral angiopathy without gangrene; I73.9 Peripheral vascular disease, unspecified; Z88.8 Allergy status to other drugs, medicaments and biological substances; Z79.899 Other long term (current) drug therapy
CPT/HCPCS: 36416; 88305; 88311; J0665; J1170; J2001; J2405; J2704; J3010; J3490